=== PATIENT | female | born 1980 | race Caucasian/White ===

== ENCOUNTER → 2017-11-27 | Outpatient (CLI) | payer BC ==
[2017-11-27 13:03] VITALS: BP 136/84; PULSE 82; TEMP 98.2; BMI 38.5
[2017-11-27 13:19] LABS: HCT 41.5 % (34.0-46.0); HGB 14.1 gm/dL (11.4-16.0); MCH 30.7 pg (25.0-35.0); MCHC 33.9 g/dL (31.0-37.0); MCV 90.5 fL (80.0-100.0); Mean Platelet Volume 7.4; Platelet Count 260 k/uL (150-450); RBC 4.59 m/uL (3.80-5.40); RDW 13.1 % (11.5-15.5); WBC 12.4 k/uL (3.8-10.6)
[2017-11-27 13:41] LABS: ALT 66 U/L (9-52); AST 35 U/L (14-36); Albumin 4.2 g/dL (3.5-5.0); Alkaline Phosphatase 80 U/L (38-126); Anion Gap 10 mmol/L; Blood Urea Nitrogen 12 mg/dL (7-17); Calcium 9.6 mg/dL (8.4-10.2); Carbon Dioxide 25 mmol/L (22-30); Chloride 103 mmol/L (98-107); Cholesterol 183 mg/dL (<200); Glucose 214 mg/dL (74-99); HDL Cholesterol 27 mg/dL (40-60); Potassium 4.4 mmol/L (3.5-5.1); Sodium 138 mmol/L (137-145); Total Bilirubin 0.4 mg/dL (0.2-1.3)
[2017-11-27 13:54] LABS: Triglycerides 809 mg/dL (<150)
[2017-11-27 19:57] LABS: Iron Saturation 21.7 (12.00-45.00)
[2017-11-27 20:20] LABS: Folate, Serum 14.4 ng/mL
[2017-11-27 20:23] LABS: Hemoglobin A1C 8.4 % (4.0-6.0)
--- NOTE | 2017-11-27 21:53 | P.HPBAR ---
Bariatric H&P - History & Physicial H&P Date: 11/27/17 History & Physicial: Visit/CC: initial bariatric visit Patient initial contact: Initial weight: Initial weight in pounds: Height: 5 ft 5 in Initial B Last weight: Current weight: 105.052 kg Current weight in pounds: 231.60 Current BMI: 38.5 [place] body weight (based on NIH guidelines): 56.699 kg Excess body weight loss: The patient is a 37 year-old F who presents for Bariatric Assessment. HPI: She is looking into the sleeve gastrectomy. She has developed diabetes and hypertension. Her highest weight is present. ABDOMEN: Unremarkable PLAN: 1. Hgb A1 c to be reviewed. 2. Smoking cessation. 3. She is looking into the sleeve gastrectomy. Past Medical History Past Medical History: Diabetes Mellitus, Hyperlipidemia, Hypertension, Osteoarthritis (OA) History of Any Multi-Drug Resistant Organisms: None Reported Past Surgical History: Hysterectomy Past Anesthesia/Blood Transfusion Reactions: No Reported Reaction Past Psychological History: Anxiety Smoking Status: Current every day smoker Past Alcohol Use History: Occasional Additional Past Alcohol Use History / Comment(s): 1/2 pack per day on chantex trying to quit Past Drug Use History: None Reported Surgical - Exam Vital Signs Temp Pulse BP 98.2 F 82 136/84 11/27/17 12:53 11/27/17 12:53 11/27/17 12:53 Results - Labs 11/27/17 12:03 11/27/17 12:03 Abnormal Lab Results - Last 24 Hours (Table) 11/27/17 11/27/17 11/27/17 Range/Units 12:03 12:03 12:03 WBC 12.4 H (3.8-10.6) k/uL Glucose 214 H (74-99) mg/dL Hemoglobin A1c (4.0-6.0) % ALT 66 H (9-52) U/L Triglycerides 809 H (<150) mg/dL HDL Cholesterol 27 L (40-60) mg/dL Vitamin D 25-Hydroxy 18.0 L (30.0-100.0) ng/mL 11/27/17 Range/Units 12:03 WBC (3.8-10.6) k/uL Glucose (74-99) mg/dL Hemoglobin A1c 8.4 H (4.0-6.0) % ALT (9-52) U/L Triglycerides (<150) mg/dL HDL Cholesterol (40-60) mg/dL Vitamin D 25-Hydroxy (30.0-100.0) ng/mL Diabetes panel 11/27/17 11/27/17 Range/Units 12:03 12:03 Sodium 138 (137-145) mmol/L Potassium 4.4 (3.5-5.1) mmol/L Chloride 103 (98-107) mmol/L Carbon Dioxide 25 (22-30) mmol/L BUN 12 (7-17) mg/dL Creatinine 0.60 (0.52-1.04) mg/dL Glucose 214 H (74-99) mg/dL Hemoglobin A1c 8.4 H (4.0-6.0) % Calcium 9.6 (8.4-10.2) mg/dL AST 35 (14-36) U/L ALT 66 H (9-52) U/L Alkaline Phosphatase 80 (38-126) U/L Total Protein 7.0 (6.3-8.2) g/dL Albumin 4.2 (3.5-5.0) g/dL Triglycerides 809 H (<150) mg/dL HDL Cholesterol 27 L (40-60) mg/dL Thyroid panel 11/27/17 Range/Units 12:03 TSH 1.410 (0.465-4.680) mIU/L Calcium panel 11/27/17 Range/Units 12:03 Calcium 9.6 (8.4-10.2) mg/dL Albumin 4.2 (3.5-5.0) g/dL Pituitary panel 11/27/17 Range/Units 12:03 Sodium 138 (137-145) mmol/L Potassium 4.4 (3.5-5.1) mmol/L Chloride 103 (98-107) mmol/L Carbon Dioxide 25 (22-30) mmol/L BUN 12 (7-17) mg/dL Creatinine 0.60 (0.52-1.04) mg/dL Glucose 214 H (74-99) mg/dL Calcium 9.6 (8.4-10.2) mg/dL TSH 1.410 (0.465-4.680) mIU/L Adrenal panel 11/27/17 Range/Units 12:03 Sodium 138 (137-145) mmol/L Potassium 4.4 (3.5-5.1) mmol/L Chloride 103 (98-107) mmol/L Carbon Dioxide 25 (22-30) mmol/L BUN 12 (7-17) mg/dL Creatinine 0.60 (0.52-1.04) mg/dL Glucose 214 H (74-99) mg/dL Calcium 9.6 (8.4-10.2) mg/dL Total Bilirubin 0.4 (0.2-1.3) mg/dL AST 35 (14-36) U/L ALT 66 H (9-52) U/L Alkaline Phosphatase 80 (38-126) U/L Total Protein 7.0 (6.3-8.2) g/dL Albumin 4.2 (3.5-5.0) g/dL Bariatric Checklist Checklist: Plan: Checklist: EGD: 1. Hiatal hernia: 2. H. Pylori: HgbA1c: Vitamin D: Smoking: Current every day smoker Primary care physician referral: ángel gatica Psychiatry clearance: Cardiology clearance: Sleep study: Diet journal: VTE risk score: VTE risk level: Rehab needs at discharge:
[2017-11-29 14:16] LABS: Anabasine Urine 6.8 ng/mL (<2.0)
== END ==
LOC: BARWHC3 10:07
PROVIDERS: ATTEND Surgery Plastic and Reconstructive Surgery
DX: E11.9 Type 2 diabetes mellitus without complications (principal); I10 Essential (primary) hypertension; F17.200 Nicotine dependence, unspecified, uncomplicated; E66.01 Morbid (severe) obesity due to excess calories; E88.81 Metabolic syndrome and other insulin resistance; D50.9 Iron deficiency anemia, unspecified; E44.0 Moderate protein-calorie malnutrition; E55.9 Vitamin D deficiency, unspecified; G47.30 Sleep apnea, unspecified; Z68.38 Body mass index [BMI] 38.0-38.9, adult
CPT/HCPCS: 80053; 80061; 80323; 82306; 82607; 82728; 82746; 83036; 83540; 83550; 84425; 84443; 85027; 93005; 99201

== ENCOUNTER 2018-01-26 06:58 | Day surgery (SDC) | payer BC ==
--- NOTE | 2018-01-26 06:38 | P.GSHP ---
History of Present Illness H&P Date: 01/26/18 CHIEF COMPLAINT: GERD HISTORY OF PRESENT ILLNESS: The patient is a 37-year-old female who presents reports gastroesophageal reflux disease. Upper endoscopy was offered for further evaluation and management. PAST MEDICAL HISTORY: Please see list. PAST SURGICAL HISTORY: Please see list. MEDICATIONS: Please see list. ALLERGIES: Please see list. SOCIAL HISTORY: No illicit drug use FAMILY HISTORY: No reports of Crohn disease or ulcerative colitis. REVIEW OF ORGAN SYSTEMS: CONSTITUTIONAL: No reports of fevers or chills. GI: Denies any blood in stools or constipation. PHYSICAL EXAM: VITAL SIGNS: Stable GENERAL: Well-developed and pleasant in no acute distress. HEENT: No scleral icterus. Extraocular movements grossly intact. Moist buccal mucosa. NECK: Supple without lymphadenopathy. CHEST: Unlabored respirations. Equal bilateral excursions. CARDIOVASCULAR: Regular rate and rhythm. Distal 2+ pulses. ABDOMEN: Soft, nondistended. MUSCULOSKELETAL: No clubbing, cyanosis, or edema. ASSESSMENT: 1. Gastroesophageal reflux disease PLAN: 1. Recommend proceeding with an upper endoscopy Past Medical History Past Medical History: Diabetes Mellitus, Hyperlipidemia, Hypertension, Osteoarthritis (OA) History of Any Multi-Drug Resistant Organisms: None Reported Past Surgical History: Hysterectomy Past Anesthesia/Blood Transfusion Reactions: No Reported Reaction Past Psychological History: Anxiety Smoking Status: Current every day smoker Past Alcohol Use History: Occasional Additional Past Alcohol Use History / Comment(s): 1/2 pack per day on chantex trying to quit Past Drug Use History: None Reported Medications and Allergies Home Medications Medication Instructions Recorded Confirmed Type ALPRAZolam [Xanax] 0.25 mg PO TID 12/03/17 01/23/18 History Citalopram Hydrobromide 20 mg PO DAILY 12/03/17 01/23/18 History [Citalopram HBr] Ezetimibe [Zetia] 10 mg PO DAILY 12/03/17 01/23/18 History Fenofibrate Nanocrystallized 1 tab PO DAILY 12/03/17 01/23/18 History [Tricor] Lisinopril-Hctz 20-25 mg 1 tab PO DAILY 12/03/17 01/23/18 History [Zestoretic 20-25] Multivitamins, Thera [Multivitamin 1 tab PO DAILY 12/03/17 01/23/18 History (formulary)] [place]-3 Fatty Acids/Fish Oil [Fish 1,000 mg PO BID 12/03/17 01/23/18 History Oil 1,000 mg Softgel] glyBURIDE [Diabeta] 2.5 mg PO DAILY 12/03/17 01/23/18 History metFORMIN HCL [Glucophage] 500 mg PO BID 12/03/17 01/23/18 History Varenicline [Chantix Continuing 1 mg PO BID 01/23/18 01/23/18 History Pack] Allergies Allergy/AdvReac Type Severity Reaction Status Date / Time No Known Allergies Allergy Verified 01/23/18 08:17
[2018-01-26 07:20] VITALS: RESP 16; TEMP 97.9
[2018-01-26] MEDS ORDERED: LACTATED RINGERS 1,000 ML IV ONE (07:31)
[2018-01-26 07:32] LABS: Glucose,Whole Blood 306 mg/dL (75-99)
[2018-01-26] MEDS ORDERED: LACTATED RINGERS 1,000 ML IV SCH (07:35)
[2018-01-26] MEDS ORDERED: LIDOCAINE 1% 20 ML VIAL (10MG/ML) FOR IV START INTRADERMA PRN (07:35)
[2018-01-26] MEDS ORDERED: INSULIN ASPART 100 UNIT/ML 1 ML 10 ML VIAL SQ ONE (07:36)
[2018-01-26] MEDS ORDERED: LIDOCAINE 1% INJ 10MG/ML (20 ML MDV) ONE (07:41)
[2018-01-26] MEDS ORDERED: PROPOFOL 10 MG/ML 20 ML VIAL IV ONE (07:41)
--- NOTE | 2018-01-26 07:54 | P.PCN ---
Date of Procedure: 01/26/18 Description of Procedure: PREOPERATIVE DIAGNOSIS: Gastroesophageal reflux disease. Morbid obesity. POSTOPERATIVE DIAGNOSIS: Morbid obesity. Gastritis. Erosive esophagitis Gastroesophageal reflux disease. Diaphragmatic hiatal hernia OPERATION: Esophagogastroduodenoscopy with biopsies along antrum. SURGEON: Helen Meyers MD ANESTHESIA: MAC. INDICATIONS: The patient is a 37-year-old female who presents with a history of reflux disease. Benefits and risks of the procedure were described. Informed consent was obtained. DESCRIPTION: The patient was brought into the endoscopy suite and laid in the left lateral decubitus position. An Olympus gastroscope was passed along the posterior oropharynx down to the distal esophagus where the squamocolumnar junction was encountered at 36 cm from the incisors. The stomach was entered and no bile reflux was found. Additional findings are listed below. Biopsies with cold forceps were obtained of the antrum. The first through third portion of the duodenum was examined and unremarkable. Retroflexion of the scope confirmed Hill grade 3 lower esophageal valve. The squamocolumnar junction demonstrated LA grade C erosive esophagitis. The stomach was desufflated. The patient tolerated the procedure well. FINDINGS: Squamocolumnar junction 36 cm from the incisors. Diaphragmatic hiatus at 40 cm. Hiatal hernia, 4 cm Hill grade 3 lower esophageal valve. LA grade C erosive esophagitis. Mild duodenitis. Early chronic gastritis RECOMMENDATIONS: Upper endoscopy as needed. Plan - Discharge Summary New Discharge Prescriptions: New Omeprazole 40 mg PO DAILY #30 capsule. No Action Lisinopril-Hctz 20-25 mg [Zestoretic 20-25] 1 tab PO DAILY metFORMIN HCL [Glucophage] 500 mg PO BID Fenofibrate Nanocrystallized [Tricor] 1 tab PO DAILY Citalopram Hydrobromide [Citalopram HBr] 20 mg PO DAILY glyBURIDE [Diabeta] 2.5 mg PO DAILY ALPRAZolam [Xanax] 0.25 mg PO TID Ezetimibe [Zetia] 10 mg PO DAILY [place]-3 Fatty Acids/Fish Oil [Fish Oil 1,000 mg Softgel] 1,000 mg PO BID Multivitamins, Thera [Multivitamin (formulary)] 1 tab PO DAILY Varenicline [Chantix Continuing Pack] 1 mg PO BID Discharge Medication List ALPRAZolam [Xanax] 0.25 mg PO TID 12/03/17 [History] Citalopram Hydrobromide [Citalopram HBr] 20 mg PO DAILY 12/03/17 [History] Ezetimibe [Zetia] 10 mg PO DAILY 12/03/17 [History] Fenofibrate Nanocrystallized [Tricor] 1 tab PO DAILY 12/03/17 [History] Lisinopril-Hctz 20-25 mg [Zestoretic 20-25] 1 tab PO DAILY 12/03/17 [History] Multivitamins, Thera [Multivitamin (formulary)] 1 tab PO DAILY 12/03/17 [History ] [place]-3 Fatty Acids/Fish Oil [Fish Oil 1,000 mg Softgel] 1,000 mg PO BID [History] glyBURIDE [Diabeta] 2.5 mg PO DAILY 12/03/17 [History] metFORMIN HCL [Glucophage] 500 mg PO BID 12/03/17 [History] Varenicline [Chantix Continuing Pack] 1 mg PO BID 01/23/18 [History] Omeprazole 40 mg PO DAILY #30 capsule. 01/26/18 [Rx] Follow up Appointment(s)/Referral(s): Helen Meyers MD [STAFF PHYSICIAN] - 02/18/18 Patient Instructions/Handouts: *Surgery [facility] - (Anesthesia) Endoscopy Discharge Instructions, Esophagitis (DC), Diet for Stomach Ulcers and Gastritis (GEN), Hiatal Hernia (DC) Discharge Disposition: HOME SELF-CARE
[2018-01-26 08:19] VITALS: BP 116/77; PULSE 76
== END 2018-01-26 08:49 | disposition home or self-care (01) ==
LOC: ORWHC2ENDO 06:58
PROVIDERS: ATTEND Surgery Plastic and Reconstructive Surgery
DX: K29.50 Unspecified chronic gastritis without bleeding (principal); K22.10 Ulcer of esophagus without bleeding; K21.0 Gastro-esophageal reflux disease with esophagitis; K29.80 Duodenitis without bleeding; K44.9 Diaphragmatic hernia without obstruction or gangrene; K21.9 Gastro-esophageal reflux disease without esophagitis; E66.01 Morbid (severe) obesity due to excess calories; E11.9 Type 2 diabetes mellitus without complications; E78.5 Hyperlipidemia, unspecified; I10 Essential (primary) hypertension; M19.90 Unspecified osteoarthritis, unspecified site; F41.9 Anxiety disorder, unspecified; F17.210 Nicotine dependence, cigarettes, uncomplicated; F32.9 Major depressive disorder, single episode, unspecified; Z79.899 Other long term (current) drug therapy; Z79.84 Long term (current) use of oral hypoglycemic drugs; Z68.36 Body mass index [BMI] 36.0-36.9, adult
CPT/HCPCS: 88305; 43239; J2001; J2704

== ENCOUNTER → 2018-02-25 | Outpatient (CLI) | payer BC ==
[2018-02-25 14:47] VITALS: BP 133/86; PULSE 78; RESP 20; TEMP 98; BMI 38.3
--- NOTE | 2018-02-25 15:20 | P.PN ---
Subjective Progress Note Date: 02/25/18 DATE OF SERVICE: 02/25/2018 CHIEF COMPLAINT: Bariatric evaluation. HISTORY OF PRESENT ILLNESS: John House is a 37-year-old female who comes in with morbid obesity. She has diabetes type 2 including hypertensive heart disease. She is still smoking. She comes in looking at her options. Her urine nicotine test is pending. Her highest weight is 231 pounds. At height of 5 feet 5 inches, her ideal body weight is 149 pounds. She comes in 230 pounds from 231 pounds, 3 months ago. She has lost 1 pound in 3 months. Her body mass index highest was 38. but 38.4 today. She is 81 pounds overweight. PAST MEDICAL HISTORY: 1. Morbid obesity due to excess calories 2. Body mass index of 38.5 3. Osteoarthritis of the knees. 4. Osteoarthritis of the lower back. 5. Hypertensive heart disease. 6. Hyperlipidemia 7. Anxiety disorder 8. Depressive disorder 9. Diabetes type 2. PAST SURGICAL HISTORY: 1. Hysterectomy HOME MEDICATIONS: ALLERGIES: Home Medications Medication Instructions Recorded Confirmed Type ALPRAZolam [Xanax] 0.25 mg PO TID 12/03/17 12/03/17 History Citalopram Hydrobromide 20 mg PO DAILY 12/03/17 12/03/17 History [Citalopram HBr] Ezetimibe [Zetia] 10 mg PO DAILY 12/03/17 12/03/17 History Fenofibrate Nanocrystallized 1 tab PO DAILY 12/03/17 12/03/17 History [Tricor] Lisinopril-Hctz 20-25 mg 1 tab PO DAILY 12/03/17 12/03/17 History [Zestoretic 20-25] Multivitamins, Thera [Multivitamin 1 tab PO DAILY 12/03/17 12/03/17 History (formulary)] [place]-3 Fatty Acids/Fish Oil [Fish 1,000 mg PO BID 12/03/17 12/03/17 History Oil 1,000 mg Softgel] glyBURIDE [Diabeta] 2.5 mg PO DAILY 12/03/17 12/03/17 History metFORMIN HCL [Glucophage] 500 mg PO BID 12/03/17 12/03/17 History Allergies Allergy/AdvReac Type Severity Reaction Status Date / Time No Known Allergies Allergy Verified 11/27/17 12:56 SOCIAL HISTORY: Active tobacco use. FAMILY HISTORY: No family history of ulcerative colitis disease or Crohn's disease. Family history of morbid obesity. No lupus in the family. No reports of stomach or esophageal cancer. REVIEW OF ORGAN SYSTEMS: CONSTITUTIONAL: At height of 5 feet 5 inches, her ideal body weight is 149 pounds. She comes in 231 pounds. Her body mass index highest was 38.5. HEENT: Denies any active troubles with vision or hearing. No troubles with swallowing. ENDOCRINE: Has diabetes. No hypothyroidism. CARDIOVASCULAR: No reports of palpitations or heart attacks or chest pain. RESPIRATORY: Has daytime somnolence. Has asthma. GI: Denies any bright red blood per rectum. No diarrhea. Has constipation. MUSCULOSKELETAL: Has lower back pain and joint pain. Has osteoarthritis of the knees. NEURO: No headaches. No seizure disorders. PSYCH: Has depression. No suicidal ideation. RHEUMATOLOGIC: No lupus. No rheumatoid arthritis. HEMATOLOGIC: Denies any abnormal bleeding or bruising. No personal history of DVTs. SKIN: No rash. No skin cancer. PHYSICAL EXAM: VITAL SIGNS: Height 5 foot 5 inches, weight 230 pounds. BMI 38.4 Vital Signs Temp 98.0 F 02/25/18 14:45 Pulse 78 02/25/18 14:45 Resp 20 02/25/18 14:45 BP 133/86 02/25/18 14:45 Pulse Ox 95 02/25/18 14:45 GENERAL: Well-developed in no acute distress. HEENT: No scleral icterus. Extraocular movements grossly intact. Hears conversational speech. No nasal drainage. NECK: Supple without lymphadenopathy. CHEST: Nonlabored respirations with equal bilateral excursions. CARDIOVASCULAR: Regular rate and regular rhythm. Distal 2+ pulses. ABDOMEN: Obese, soft, nontender, nondistended. MUSCULOSKELETAL: No clubbing, cyanosis. NEURO: No focal or lateralizing signs. Cranial nerves 2 through 12 grossly within normal limits. PSYCH: Appropriate affect. Alert and oriented to person, place and time. SKIN: Good skin turgor. Well perfused. EGD FINDINGS: Squamocolumnar junction 36 cm from the incisors. Diaphragmatic hiatus at 40 cm. Hiatal hernia, 4 cm Hill grade 3 lower esophageal valve. LA grade C erosive esophagitis. Mild duodenitis. Early chronic gastritis Final Pathologic Diagnosis GASTRIC ANTRUM, BIOPSY: Chronic gastritis. Helicobacter organisms are not identified on routine H+E stained sections. ASSESSMENT: 1. Morbid obesity due to excess calories 2. Body mass index of 38.4 3. Osteoarthritis of the knees. 4. Osteoarthritis of the lower back. 5. Hypertensive heart disease. 6. Hyperlipidemia 7. Anxiety disorder 8. Depressive disorder 9. Diabetes type 2, new diagnosis PLAN: 1. She is looking into the sleeve. She has a hiatal hernia and recommend repair prior to her sleeve gastrectomy. Nicotine use is also contraindicated for a hiatal hernia repair. 2. She is barely off her nicotine use. She will need urine nicotine test 3. [facility] calculator was reviewed for all procedures 4. Labs reviewed demonstrates HgB A1C is over 8. She will need tight glycemic control. 5. She asked about alcohol use after surgery. Alcohol abstinence advised. 6. Gastric bypass was also described for her history of gastric bypass for her gastroesophageal reflux disease. 7. Her liver enzymes are high and recommend check for ultrasound gallbladder for gallstones 8. Also recommend evaluation with the bariatric correctional sergeant 9. She is intermediate to high risk of complications due to her current tobacco use, diabetes uncontrolled, concurrent hiatal hernia, and alcohol use. 10. Surgical intervention on hold pending improved glycemic control and nicotine abstinence. Objective - Vital Signs Vital signs: Vital Signs Temp 98.0 F 02/25/18 14:45 Pulse 78 02/25/18 14:45 Resp 20 02/25/18 14:45 BP 133/86 02/25/18 14:45 Pulse Ox 95 02/25/18 14:45 Intake & Output 02/24/18 02/25/18 02/25/18 18:59 06:59 18:59 Weight 104.553 kg
== END | disposition home or self-care (01) ==
LOC: BARWHC3 13:24
PROVIDERS: ATTEND Surgery Plastic and Reconstructive Surgery
DX: Z48.815 Encounter for surgical aftercare following surgery on the digestive system (principal); E66.01 Morbid (severe) obesity due to excess calories; M17.0 Bilateral primary osteoarthritis of knee; M47.896 Other spondylosis, lumbar region; I11.9 Hypertensive heart disease without heart failure; E78.5 Hyperlipidemia, unspecified; F41.9 Anxiety disorder, unspecified; F32.9 Major depressive disorder, single episode, unspecified; E11.9 Type 2 diabetes mellitus without complications; Z68.38 Body mass index [BMI] 38.0-38.9, adult; Z79.899 Other long term (current) drug therapy; Z79.84 Long term (current) use of oral hypoglycemic drugs; Z98.84 Bariatric surgery status
CPT/HCPCS: 99211

== ENCOUNTER → 2018-03-31 | Outpatient (CLI) | payer BC ==
--- NOTE | 2018-03-31 10:27 | US ---
EXAMINATION TYPE: US gallbladder DATE OF EXAM: 03/31/2018 COMPARISON: NONE CLINICAL HISTORY: 37-year-old female R10.11 RUQ Pain abdominal Pain. Elevated LFT's, Pre-Op Gastric B ypass TECHNIQUE: Multiple sonographic images of the right upper quadrant are obtained. FINDINGS: EXAM MEASUREMENTS: Liver Length: 25.1 cm Gallbladder Wall: 0.2 cm CBD: 0.5 cm Right Kidney: 11.9 x 4.9 x 6.1 cm Firearms Specialist notes:*Large pt body habitus* Pancreas: Obscured by bowel gas Liver: Enlarged, difficult to penetrate, heterogeneous. The degree of sound beam attenuation limits assessment for focal lesion. Gallbladder: No abnormal distention, wall thickening, pericholecystic fluid, or shadowing calculi. Evidence for sonographic Cruz's sign: No CBD: wnl Right Kidney: No evidence of hydro, difficult to visualize due to attenuation from the liver. IMPRESSION: Marked hepatomegaly (25.1 cm) with marked attenuation of the liver suggesting severe hepatic steatosi s. Correlate with LFTs, lipid profile, and patient risk factors.
== END | disposition home or self-care (01) ==
LOC: RADUSWWP 07:31
PROVIDERS: ATTEND Surgery Plastic and Reconstructive Surgery
DX: R16.0 Hepatomegaly, not elsewhere classified (principal); R10.11 Right upper quadrant pain
CPT/HCPCS: 76705

== ENCOUNTER → 2018-04-06 | Outpatient (CLI) | payer BC ==
[2018-04-06 13:04] VITALS: BMI 38.2
== END ==
LOC: BARWHC3 08:42
PROVIDERS: ATTEND Surgery Plastic and Reconstructive Surgery
DX: E66.01 Morbid (severe) obesity due to excess calories (principal)
CPT/HCPCS: 97804

== ENCOUNTER → 2018-05-06 | Outpatient (CLI) | payer BC ==
[2018-05-06 14:07] VITALS: BP 116/83; PULSE 89; RESP 16; TEMP 97.9; BMI 38.4
--- NOTE | 2018-05-06 14:54 | P.PN ---
Subjective Progress Note Date: 05/06/18 DATE OF SERVICE: 05/06/2018 CHIEF COMPLAINT: Morbid obesity HISTORY OF PRESENT ILLNESS: John House is a 37-year-old female who comes in with morbid obesity. She has diabetes type 2 including hypertensive heart disease. Her highest weight is 231 pounds. No reports of nausea or vomiting. Her blood sugars were elevated. At height of 5 feet 5 inches, her ideal body weight is 149 pounds. She comes in 231 pounds from 231 pounds, 2 months ago. Her weight is unchanged. Her body mass index highest was 38.5. She is 82 pounds overweight. PAST MEDICAL HISTORY: 1. Morbid obesity due to excess calories 2. Body mass index of 38.5 3. Osteoarthritis of the knees. 4. Osteoarthritis of the lower back. 5. Hypertensive heart disease. 6. Hyperlipidemia 7. Anxiety disorder 8. Depressive disorder 9. Diabetes type 2. PAST SURGICAL HISTORY: 1. Hysterectomy HOME MEDICATIONS: ALLERGIES: Home Medications Medication Instructions Recorded Confirmed Type ALPRAZolam [Xanax] 0.25 mg PO TID 12/03/17 12/03/17 History Citalopram Hydrobromide 20 mg PO DAILY 12/03/17 12/03/17 History [Citalopram HBr] Ezetimibe [Zetia] 10 mg PO DAILY 12/03/17 12/03/17 History Fenofibrate Nanocrystallized 1 tab PO DAILY 12/03/17 12/03/17 History [Tricor] Lisinopril-Hctz 20-25 mg 1 tab PO DAILY 12/03/17 12/03/17 History [Zestoretic 20-25] Multivitamins, Thera [Multivitamin 1 tab PO DAILY 12/03/17 12/03/17 History (formulary)] [place]-3 Fatty Acids/Fish Oil [Fish 1,000 mg PO BID 12/03/17 12/03/17 History Oil 1,000 mg Softgel] glyBURIDE [Diabeta] 2.5 mg PO DAILY 12/03/17 12/03/17 History metFORMIN HCL [Glucophage] 500 mg PO BID 12/03/17 12/03/17 History Allergies Allergy/AdvReac Type Severity Reaction Status Date / Time No Known Allergies Allergy Verified 11/27/17 12:56 SOCIAL HISTORY: Active tobacco use. FAMILY HISTORY: No family history of ulcerative colitis disease or Crohn's disease. Family history of morbid obesity. No lupus in the family. No reports of stomach or esophageal cancer. REVIEW OF ORGAN SYSTEMS: CONSTITUTIONAL: At height of 5 feet 5 inches, her ideal body weight is 149 pounds. She comes in 231 pounds. Her body mass index highest was 38.5. HEENT: Denies any active troubles with vision or hearing. No troubles with swallowing. ENDOCRINE: Has diabetes. No hypothyroidism. CARDIOVASCULAR: No reports of palpitations or heart attacks or chest pain. RESPIRATORY: Has daytime somnolence. Has asthma. GI: Denies any bright red blood per rectum. No diarrhea. Has constipation. MUSCULOSKELETAL: Has lower back pain and joint pain. Has osteoarthritis of the knees. NEURO: No headaches. No seizure disorders. PSYCH: Has depression. No suicidal ideation. RHEUMATOLOGIC: No lupus. No rheumatoid arthritis. HEMATOLOGIC: Denies any abnormal bleeding or bruising. No personal history of DVTs. SKIN: No rash. No skin cancer. PHYSICAL EXAM: VITAL SIGNS: Height 5 foot 5 inches, weight 231 pounds. BMI 38.5 Vital Signs Temp 97.9 F 05/06/18 14:04 Pulse 89 05/06/18 14:04 Resp 16 05/06/18 14:04 BP 116/83 05/06/18 14:04 Pulse Ox GENERAL: Well-developed in no acute distress. HEENT: No scleral icterus. Extraocular movements grossly intact. Hears conversational speech. No nasal drainage. NECK: Supple without lymphadenopathy. CHEST: Nonlabored respirations with equal bilateral excursions. CARDIOVASCULAR: Regular rate and regular rhythm. Distal 2+ pulses. ABDOMEN: Obese, soft, nontender, nondistended. MUSCULOSKELETAL: No clubbing, cyanosis. NEURO: No focal or lateralizing signs. Cranial nerves 2 through 12 grossly within normal limits. PSYCH: Appropriate affect. Alert and oriented to person, place and time. SKIN: Good skin turgor. Well perfused. ASSESSMENT: 1. Morbid obesity due to excess calories 2. Body mass index of 38.4, initial 3. Osteoarthritis of the knees. 4. Osteoarthritis of the lower back. 5. Hypertensive heart disease. 6. Hyperlipidemia 7. Anxiety disorder 8. Depressive disorder 9. Diabetes type 2 PLAN: 1. Bariatric options between a sleeve, band and a [place]ante-en-Y gastric bypass were reviewed in detail. The patient elected for gastric bypass. Robotic assisted approach described. 2. The [place] [facility] Data was also reviewed with benefits and risks as described. 3. An 8 page second-generation bariatric consent form was reviewed in detail including potential of bleeding, infection, leaks, adequate weight loss, nutritional deficiencies which the patient demonstrated understanding of the risks. 4. A 2 week high-protein low caloric 800 kcal diet described to address hepatomegaly. 5. Preoperative labs including complete metabolic panel and CBC with type and screen recommended. 6. DVT prophylaxis per [place] [facility]. 7. Antibiotic prophylaxis. 8. Inpatient hospitalization anticipated for more than 2 nights. 9. All questions and concerns were addressed with the patient. 10. Will need urine nicotine re-check 11. She is elevated risk for complications. Objective - Vital Signs Vital signs: Vital Signs Temp 97.9 F 05/06/18 14:04 Pulse 89 05/06/18 14:04 Resp 16 05/06/18 14:04 BP 116/83 05/06/18 14:04 Pulse Ox Intake & Output 05/05/18 05/06/18 05/06/18 18:59 06:59 18:59 Weight 104.78 kg
== END | disposition home or self-care (01) ==
LOC: BARWHC3 13:34
PROVIDERS: ATTEND Surgery Plastic and Reconstructive Surgery
DX: E66.01 Morbid (severe) obesity due to excess calories (principal); M17.0 Bilateral primary osteoarthritis of knee; M47.816 Spondylosis without myelopathy or radiculopathy, lumbar region; I11.9 Hypertensive heart disease without heart failure; E78.5 Hyperlipidemia, unspecified; F41.9 Anxiety disorder, unspecified; F32.9 Major depressive disorder, single episode, unspecified; E11.9 Type 2 diabetes mellitus without complications; Z68.38 Body mass index [BMI] 38.0-38.9, adult; Z72.0 Tobacco use; Z79.84 Long term (current) use of oral hypoglycemic drugs; Z79.899 Other long term (current) drug therapy
CPT/HCPCS: 99211

== ENCOUNTER → 2018-06-06 | Outpatient (CLI) | payer BC ==
[2018-06-06 10:43] LABS: Basophils # (A) 0.1 k/uL (0-0.2); Basophils % (A) 1 %; Eosinophils # (A) 0.1 k/uL (0-0.7); Eosinophils % (A) 2 %; HCT 43.4 % (34.0-46.0); HGB 14.5 gm/dL (11.4-16.0); Lymphocytes # (A) 2.4 k/uL (1.0-4.8); Lymphocytes % (A) 30 %; MCH 30.9 pg (25.0-35.0); MCHC 33.4 g/dL (31.0-37.0); MCV 92.4 fL (80.0-100.0); Mean Platelet Volume 7.4; Monocytes # (A) 0.4 k/uL (0-1.0); Monocytes % (A) 5 %; Neutrophils # (A) 4.7 k/uL (1.3-7.7); Neutrophils % (A) 61 %; Platelet Count 249 k/uL (150-450); RDW 13.4 % (11.5-15.5); WBC 7.7 k/uL (3.8-10.6)
[2018-06-06 11:05] LABS: ALT 101 U/L (9-52); AST 74 U/L (14-36); Albumin 4.5 g/dL (3.5-5.0); Alkaline Phosphatase 81 U/L (38-126); Anion Gap 10 mmol/L; Blood Urea Nitrogen 13 mg/dL (7-17); Calcium 10.1 mg/dL (8.4-10.2); Carbon Dioxide 26 mmol/L (22-30); Chloride 100 mmol/L (98-107); Glucose 200 mg/dL (74-99); Potassium 4.1 mmol/L (3.5-5.1); Sodium 136 mmol/L (137-145); Total Bilirubin 0.6 mg/dL (0.2-1.3); Total Protein 7.1 g/dL (6.3-8.2)
== END | disposition home or self-care (01) ==
LOC: LABPAT 10:11
PROVIDERS: ATTEND Surgery Plastic and Reconstructive Surgery
DX: Z01.812 Encounter for preprocedural laboratory examination (principal)
CPT/HCPCS: 36415; 80053; 85025

== ENCOUNTER → 2018-06-15 | Outpatient (CLI) | payer BC ==
--- NOTE | 2018-06-15 15:24 | CT ---
EXAMINATION TYPE: CT abdomen pelvis w con DATE OF EXAM: 06/15/2018 COMPARISON: Ultrasound gallbladder 03/31/2018 HISTORY: Elevated lliver enzymes CT DLP: 1551 mGycm Automated exposure control for dose reduction was used. CONTRAST: CT scan of the abdomen pelvis is performed with IV Contrast, patient injected with 100 mL of Isovue 3 00. FINDINGS- LUNG BASES-subsegmental changes involving both lung bases most atelectasis. LIVER/GB-liver is diffusely reduced in attenuation of fatty. PANCREAS- No gross abnormality is seen. SPLEEN- No gross abnormality is seen. ADRENALS- No gross abnormality is seen. KIDNEYS/BLADDER- no hydronephrosis nephrolithiasis or renal mass. BOWEL-bowel gas pattern nonspecific.. Normal appendix. LYMPH NODES- No greater than 1cm abdominal or pelvic lymph nodes areappreciated. OSSEOUS STRUCTURES- No significant abnormality is seen. Vertebral body hemangioma noted. OTHER- there are bilateral ovarian lesions the largest on the left measuring 3 cm likely related to a cyst. Pelvic ultrasound No free fluid. IMPRESSION- 1. Hepatomegaly with diffuse low-attenuation throughout the liver correlate for hepatic steatosis.
== END | disposition home or self-care (01) ==
LOC: RADCTMAIN 14:08
PROVIDERS: ATTEND Surgery Plastic and Reconstructive Surgery
DX: R16.0 Hepatomegaly, not elsewhere classified (principal)
CPT/HCPCS: 74177; 36415; Q9967

== ENCOUNTER → 2018-06-15 | Outpatient (CLI) | payer BC ==
[2018-06-15 13:00] VITALS: BP 130/69; PULSE 69; TEMP 98.6; BMI 36.1
--- NOTE | 2018-06-15 13:02 | P.PN ---
Subjective Progress Note Date: 06/15/18 DATE OF SERVICE: 06/15/2018 CHIEF COMPLAINT: Morbid obesity HISTORY OF PRESENT ILLNESS: John House is a 38-year-old female who presents with uncontrolled diabetes type 2 including hypertensive heart disease, hyperlipidemia. Her procedure was scheduled today however canceled secondary to moderate elevation of her LFTs as well as worsening poorly controlled diabetes. Repeat hemoglobin A1c at her local provider came back over 10.0 from 8.4 six months ago, November 2017. She is also pending repeat urine nicotine test. Her mother is at bedside who also confirms family history of liver disease. She has not seen an motorcycle repairer in over 3+ years. She also completed diabetic education class now with worsening blood sugar glucose. Blood sugars average over 200 to 250s, even 300s. She has been following her 2 week low-carb high- protein diet where she reports her blood sugars has been under 100 and at one point less than 60. She comes in with moderate weight loss of 14 pounds in 1 month. Separately, she reports intermittent abdominal discomfort. She has past history of hypertriglyceridemia with triglycerides over 800 which puts her at risk for pancreatitis. Her highest weight is 231 pounds. At height of 5 feet 5 inches, her ideal body weight is 149 pounds. She comes in 217 pounds from 231 pounds, 1 month ago. She has lost 14 pound in 1 month. Her body mass index highest was 38.5 to 36.2. PAST MEDICAL HISTORY: 1. Morbid obesity due to excess calories 2. Body mass index of 38.5 3. Osteoarthritis of the knees. 4. Osteoarthritis of the lower back. 5. Hypertensive heart disease. 6. Hyperlipidemia 7. Anxiety disorder 8. Depressive disorder 9. Diabetes type 2, poorly controlled. PAST SURGICAL HISTORY: 1. Hysterectomy HOME MEDICATIONS: ALLERGIES: Home Medications Medication Instructions Recorded Confirmed Type ALPRAZolam [Xanax] 0.25 mg PO TID 12/03/17 12/03/17 History Citalopram Hydrobromide 20 mg PO DAILY 12/03/17 12/03/17 History [Citalopram HBr] Ezetimibe [Zetia] 10 mg PO DAILY 12/03/17 12/03/17 History Fenofibrate Nanocrystallized 1 tab PO DAILY 12/03/17 12/03/17 History [Tricor] Lisinopril-Hctz 20-25 mg 1 tab PO DAILY 12/03/17 12/03/17 History [Zestoretic 20-25] Multivitamins, Thera [Multivitamin 1 tab PO DAILY 12/03/17 12/03/17 History (formulary)] [place]-3 Fatty Acids/Fish Oil [Fish 1,000 mg PO BID 12/03/17 12/03/17 History Oil 1,000 mg Softgel] glyBURIDE [Diabeta] 2.5 mg PO DAILY 12/03/17 12/03/17 History metFORMIN HCL [Glucophage] 500 mg PO BID 12/03/17 12/03/17 History Allergies Allergy/AdvReac Type Severity Reaction Status Date / Time No Known Allergies Allergy Verified 11/27/17 12:56 SOCIAL HISTORY: Recent tobacco use. FAMILY HISTORY: No family history of ulcerative colitis disease or Crohn's disease. Family history of morbid obesity. No lupus in the family. No reports of stomach or esophageal cancer. REVIEW OF ORGAN SYSTEMS: CONSTITUTIONAL: At height of 5 feet 5 inches, her ideal body weight is 149 pounds. She comes in 217 pounds. Her body mass index highest was 38.5. HEENT: Denies any active troubles with vision or hearing. No troubles with swallowing. ENDOCRINE: Has diabetes. No hypothyroidism. CARDIOVASCULAR: No reports of palpitations or heart attacks or chest pain. RESPIRATORY: Has daytime somnolence. Has asthma. GI: Denies any bright red blood per rectum. No diarrhea. Has constipation. MUSCULOSKELETAL: Has lower back pain and joint pain. Has osteoarthritis of the knees. NEURO: No headaches. No seizure disorders. PSYCH: Has depression. No suicidal ideation. RHEUMATOLOGIC: No lupus. No rheumatoid arthritis. HEMATOLOGIC: Denies any abnormal bleeding or bruising. No personal history of DVTs. SKIN: No rash. No skin cancer. PHYSICAL EXAM: VITAL SIGNS: Height 5 foot 5 inches, weight 217 pounds. BMI 36.2 GENERAL: Well-developed in no acute distress. HEENT: No scleral icterus. Extraocular movements grossly intact. Hears conversational speech. No nasal drainage. NECK: Supple without lymphadenopathy. CHEST: Nonlabored respirations with equal bilateral excursions. CARDIOVASCULAR: Regular rate and regular rhythm. Distal 2+ pulses. ABDOMEN: Obese, soft, nondistended. MUSCULOSKELETAL: No clubbing, cyanosis. NEURO: No focal or lateralizing signs. Cranial nerves 2 through 12 grossly within normal limits. PSYCH: Appropriate affect. Alert and oriented to person, place and time. SKIN: Good skin turgor. Well perfused. LABS: LFTs moderately elevated 70s AST, ALT over 100s. Vitamin D low. Hemoglobin A1c over 8.4 now over 10.0 STUDIES: Ultrasound gallbladder personally reviewed demonstrating mild shadowing within the gallbladder. Report is negative for large stones with possible liver disease. ASSESSMENT: 1. Morbid obesity due to excess calories 2. Body mass index of 38.4 to 36.2 3. Osteoarthritis of the knees. 4. Osteoarthritis of the lower back. 5. Hypertensive heart disease. 6. Hyperlipidemia 7. Anxiety disorder 8. Depressive disorder 9. Diabetes type 2, uncontrolled, worsening 10. Vitamin D deficiency 11. Hypertriglyceridemia with risk for pancreatitis 12. Elevated liver function tests 13. Family history of liver disease 14. History of tobacco abuse 15. Hepatomegaly PLAN: 1. Recommended CT of the abdomen and pelvis with IV contrast secondary to hepatomegaly and elevated LFTs and history of hypertriglyceridemia with pancreatitis risk. Prior ultrasound demonstrated possible liver disease. 2. I've ordered laboratory results of repeat comprehensive metabolic panel, hepatitis panel, vitamin D, hemoglobin A1c. Hemoglobin A1c of prior was too high over 10.0. She understands that poorly controlled diabetes increases perioperative complications for infection. 3. Urine nicotine test recommended for recent history of tobacco abuse 4. Referral to motorcycle repairer recommended for poorly controlled and worsening diabetes despite diabetic education. Hemoglobin A1c goal less than 8 described including random blood sugar glucose of 150s or less. 5. She is seeking the gastric bypass.Surgical intervention on hold pending improved glycemic control and nicotine abstinence. 6. Potential cholecystectomy pending further results of imaging studies and laboratory work.
[2018-06-15 13:56] LABS: ALT 188 U/L (9-52); AST 153 U/L (14-36); Albumin/Globulin Ratio 1.9; Alkaline Phosphatase 77 U/L (38-126); Amylase 48 U/L (30-110); Anion Gap 14 mmol/L; Blood Urea Nitrogen 11 mg/dL (7-17); Calcium 10.4 mg/dL (8.4-10.2); Carbon Dioxide 26 mmol/L (22-30); Chloride 98 mmol/L (98-107); Cholesterol 180 mg/dL (<200); Globulin 2.7 g/dL; Glucose 110 mg/dL (74-99); HDL Cholesterol 34 mg/dL (40-60); LDL Cholesterol,Calculated 98 mg/dL (0-99); Lipase 97 U/L (23-300); Potassium 3.9 mmol/L (3.5-5.1); Sodium 138 mmol/L (137-145); Total Bilirubin 0.7 mg/dL (0.2-1.3); Total Protein 7.7 g/dL (6.3-8.2); Triglycerides 241 mg/dL (<150)
[2018-06-15 19:19] LABS: Vitamin D 25 Hydroxy 33.9 ng/mL (30.0-100.0)
[2018-06-15 20:49] LABS: Hepatitis A Antibody IgM Non-Reactive (Non-Reactive); Hepatitis B Core IgM Non-Reactive (Non-Reactive)
[2018-06-15 21:37] LABS: Hemoglobin A1C 8.7 % (4.0-6.0)
== END ==
LOC: BARWHC3 11:44
PROVIDERS: ATTEND Surgery Plastic and Reconstructive Surgery
DX: E66.01 Morbid (severe) obesity due to excess calories (principal); M17.0 Bilateral primary osteoarthritis of knee; I11.9 Hypertensive heart disease without heart failure; E78.5 Hyperlipidemia, unspecified; F41.8 Other specified anxiety disorders; E11.9 Type 2 diabetes mellitus without complications; E55.9 Vitamin D deficiency, unspecified; R16.0 Hepatomegaly, not elsewhere classified; E78.1 Pure hyperglyceridemia; R79.89 Other specified abnormal findings of blood chemistry; E89.1 Postprocedural hypoinsulinemia; Z83.79 Family history of other diseases of the digestive system; Z87.891 Personal history of nicotine dependence; Z79.899 Other long term (current) drug therapy; Z79.84 Long term (current) use of oral hypoglycemic drugs; Z68.38 Body mass index [BMI] 38.0-38.9, adult; Z71.51 Drug abuse counseling and surveillance of drug abuser
CPT/HCPCS: 36415; 80053; 80061; 80074; 80323; 82150; 82306; 83036; 83690; 99211

== ENCOUNTER 2018-07-01 09:42 | Emergency (ER) | payer BC ==
[2018-07-01] MEDS ORDERED: MORPHINE SULFATE 2 MG/ML SYRINGE IVP STA (10:10)
[2018-07-01] MEDS ORDERED: SODIUM CHLORIDE 0.9% 1,000 ML IV STA (10:10)
[2018-07-01 10:29] LABS: Appearance,Urine Clear (Clear); Bilirubin,Urine Negative (Negative); Blood,Urine Trace (Negative); Color,Urine Yellow; Glucose,Urine (UA) 4+ (Negative); Leukocyte Esterase,Urine Negative (Negative); Mucus,Urine Rare /hpf; Nitrite,Urine Negative (Negative); PH, Urine 5.5 (5.0-8.0); Protein,Urine 2+ (Negative); RBC,Urine 2 /hpf (0-5); Specific Gravity,Urine 1.043 (1.001-1.035); Squamous Epithelial Cell,Urine 3 /hpf (0-4); Urobilinogen,Urine <2.0 mg/dL (<2.0); WBC,Urine 1 /hpf (0-5)
--- NOTE | 2018-07-01 11:09 | ED ---
Abdominal Pain HPI - General Chief Complaint: Abdominal Pain Stated Complaint: abd pain Source: patient Mode of arrival: ambulatory Limitations: no limitations - History of Present Illness Initial Comments: 38-year-old female presenting today for chief complaint of abdominal pain, diarrhea. Pt states she began experiencing severe crampy abdominal pain mostly midline of center of abdomen 3 days prior. She states she has been having vomiting and diarrhea for the past 2 days. Patient states the diarrhea is watery occurring recurrently in small amounts multiple times a day. Patient had an episode in the emergency department upon arrival. Patient denies melena hematochezia she has hematemesis she states she has not been vomiting since yesterday. Patient denies any sick contacts. Denies recent travel. Denies fever, chills or nightsweats. She denies any pelvic pain, vaginal bleeding or vaginal discharge. Patient denies stating she has had a partial hysterectomy. Patient denies any radiation the pain, or specific alleviating DrRadha Quintanilla she states she does seem to nose increasing pain prior to episode of diarrhea. - Related Data Home Medications Medication Instructions Recorded Confirmed ALPRAZolam [Xanax] 0.25 mg PO TID 12/03/17 07/01/18 Citalopram Hydrobromide 20 mg PO DAILY 12/03/17 07/01/18 [Citalopram HBr] Ezetimibe [Zetia] 10 mg PO DAILY 12/03/17 07/01/18 Fenofibrate Nanocrystallized 145 mg PO DAILY 12/03/17 07/01/18 [Tricor] Multivitamins, Thera [Multivitamin 1 tab PO DAILY 12/03/17 07/01/18 (formulary)] glyBURIDE [Diabeta] 2.5 mg PO DAILY 12/03/17 07/01/18 metFORMIN HCL [Glucophage] 500 mg PO BID 12/03/17 07/01/18 Ergocalciferol [Vitamin D2 50,000 unit PO WE 07/01/18 07/01/18 (DRISDOL)] Icosapent Ethyl [Vascepa] 1 gm PO BID 07/01/18 07/01/18 Lisinopril [Zestril] 20 mg PO DAILY 07/01/18 07/01/18 [place]-3 Fatty Acids/Fish Oil [Fish 1,000 mg PO DAILY 07/01/18 07/01/18 Oil 1,000 mg Softgel] Spironolactone [Aldactone] 25 mg PO BID 07/01/18 07/01/18 Previous Rx's Medication Instructions Recorded Omeprazole 40 mg PO DAILY #30 capsule. 01/26/18 Allergies Allergy/AdvReac Type Severity Reaction Status Date / Time No Known Allergies Allergy Verified 07/01/18 10:01 Review of Systems ROS Statement: Those systems with pertinent positive or pertinent negative responses have been documented in the HPI. ROS Other: All systems not noted in ROS Statement are negative. Past Medical History Past Medical History: Diabetes Mellitus, Hyperlipidemia, Hypertension, Osteoarthritis (OA) History of Any Multi-Drug Resistant Organisms: None Reported Past Surgical History: Hysterectomy Past Anesthesia/Blood Transfusion Reactions: No Reported Reaction Past Psychological History: Anxiety Smoking Status: Former smoker Past Alcohol Use History: None Reported Past Drug Use History: None Reported General Exam - General Exam Comments Initial Comments: General: The patient is awake and alert, in no distress, and does not appear acutely ill. Eye: Pupils are equal, round and reactive to light, extra-ocular movements are intact. No nystagmus. There is normal conjunctiva bilaterally. No signs of icterus. Ears, nose, mouth and throat: There are moist mucous membranes and no oral lesions. Neck: The neck is supple, there is no tenderness or JVD. Cardiovascular: There is a regular rate and rhythm. No murmur, rub or gallop is appreciated. Respiratory: Lungs are clear to auscultation, respirations are non-labored, breath sounds are equal. No wheezes, stridor, rales, or rhonchi. Gastrointestinal: Abdomen obese. Soft, non-distended, tenderness just below the belly button without masses or organomegaly noted. There is no rebound or guarding present. No rigidity. No CVA tenderness. Bowel sounds are unremarkable. Musculoskeletal: Normal ROM, no tenderness. Strength 5/5. Sensation intact. Pulses equal bilaterally 2+. Neurological: A&O x 3. CN II-XII intact, There are no obvious motor or sensory deficits. Coordination appears grossly intact. Speech is normal. Skin: Skin is warm and dry and no rashes or lesions are noted. Psychiatric: Cooperative, appropriate mood & affect, normal judgment. Limitations: no limitations Course Vital Signs 05/15/19 05/15/19 09:45 12:00 Temperature 98.8 F Pulse Rate 105 H 89 Respiratory 20 18 Rate Blood Pressure 118/78 121/81 O2 Sat by Pulse 97 96 Oximetry Medical Decision Making - Medical Decision Making 38-year-old female presenting for vomiting, diarrhea abdominal pain 2-3 days. Patient states that she has not had fever or blood in stools. On examination patient has pain to palpation. No rigidity no guarding. CT reveal colitis. Most likely a gastroenteritis. Patient has elevated blood glucose she has not taken her metformin in 2-3 days. Patient appears tried examination was given IV hydration. Patient is acetone negative with normal anion gap. I do not feel patient has evidence of DKA. At this time feel patient is stable for discharge her sent back treatment, an increase of fluid at home. Patient is agreeable care plan and was able to tolerate oral intake. Patient was discharged appearing well and is to follow-up with primary care provider in 2-3 days. Return parameters were discussed at length with patient who verbalizes understanding. Patient discharged appearing well after discussed the case with a provider Dr. Arreaga who is agreeable with d/c and care plan today. - Lab Data Result diagrams: 07/01/18 10:25 07/01/18 10:25 Lab Results 07/01/18 07/01/18 07/01/18 Range/Units 10:14 10:14 10:25 WBC (3.8-10.6) k/uL RBC (3.80-5.40) m/uL Hgb (11.4-16.0) gm/dL Hct (34.0-46.0) % MCV (80.0-100.0) fL MCH (25.0-35.0) pg MCHC (31.0-37.0) g/dL RDW (11.5-15.5) % Plt Count (150-450) k/uL Neutrophils % % Lymphocytes % % Monocytes % % Eosinophils % % Basophils % % Neutrophils # (1.3-7.7) k/uL Lymphocytes # (1.0-4.8) k/uL Monocytes # (0-1.0) k/uL Eosinophils # (0-0.7) k/uL Basophils # (0-0.2) k/uL Sodium 136 L (137-145) mmol/L Potassium 4.3 (3.5-5.1) mmol/L Chloride 102 (98-107) mmol/L Carbon Dioxide 24 (22-30) mmol/L Anion Gap 10 mmol/L BUN 11 (7-17) mg/dL Creatinine 0.57 (0.52-1.04) mg/dL Est GFR (CKD-EPI)AfAm >90 (>60 ml/min/1.73 sqM) Est GFR (CKD-EPI)NonAf >90 (>60 ml/min/1.73 sqM) Glucose 236 H (74-99) mg/dL Calcium 9.4 (8.4-10.2) mg/dL Total Bilirubin 0.6 (0.2-1.3) mg/dL AST 30 (14-36) U/L ALT 49 (9-52) U/L Alkaline Phosphatase 88 (38-126) U/L Total Protein 7.0 (6.3-8.2) g/dL Albumin 4.4 (3.5-5.0) g/dL Amylase 31 (30-110) U/L Lipase 99 (23-300) U/L Urine Color Yellow Urine Appearance Clear (Clear) Urine pH 5.5 (5.0-8.0) Ur Specific [place] 1.043 H (1.001-1.035) Urine Protein 2+ H (Negative) Urine Glucose (UA) 4+ H (Negative) Urine Ketones 2+ H (Negative) Urine Blood Trace H (Negative) Urine Nitrite Negative (Negative) Urine Bilirubin Negative (Negative) Urine Urobilinogen <2.0 (<2.0) mg/dL Ur Leukocyte Esterase Negative (Negative) Urine RBC 2 (0-5) /hpf Urine WBC 1 (0-5) /hpf Ur Squamous Epith Cells 3 (0-4) /hpf Urine Mucus Rare H (None) /hpf Urine HCG, Qual Not Detected (Not Detectd) Acetone, Qual (Negative) 07/01/18 07/01/18 Range/Units 10:25 10:25 WBC 9.3 (3.8-10.6) k/uL RBC 4.79 (3.80-5.40) m/uL Hgb 14.5 (11.4-16.0) gm/dL Hct 43.8 (34.0-46.0) % MCV 91.4 (80.0-100.0) fL MCH 30.2 (25.0-35.0) pg MCHC 33.1 (31.0-37.0) g/dL RDW 12.9 (11.5-15.5) % Plt Count 266 (150-450) k/uL Neutrophils % 73 % Lymphocytes % 19 % Monocytes % 5 % Eosinophils % 1 % Basophils % 0 % Neutrophils # 6.8 (1.3-7.7) k/uL Lymphocytes # 1.8 (1.0-4.8) k/uL Monocytes # 0.5 (0-1.0) k/uL Eosinophils # 0.1 (0-0.7) k/uL Basophils # 0.0 (0-0.2) k/uL Sodium (137-145) mmol/L Potassium (3.5-5.1) mmol/L Chloride (98-107) mmol/L Carbon Dioxide (22-30) mmol/L Anion Gap mmol/L BUN (7-17) mg/dL Creatinine (0.52-1.04) mg/dL Est GFR (CKD-EPI)AfAm (>60 ml/min/1.73 sqM) Est GFR (CKD-EPI)NonAf (>60 ml/min/1.73 sqM) Glucose (74-99) mg/dL Calcium (8.4-10.2) mg/dL Total Bilirubin (0.2-1.3) mg/dL AST (14-36) U/L ALT (9-52) U/L Alkaline Phosphatase (38-126) U/L Total Protein (6.3-8.2) g/dL Albumin (3.5-5.0) g/dL Amylase (30-110) U/L Lipase (23-300) U/L Urine Color Urine Appearance (Clear) Urine pH (5.0-8.0) Ur Specific [place] (1.001-1.035) Urine Protein (Negative) Urine Glucose (UA) (Negative) Urine Ketones (Negative) Urine Blood (Negative) Urine Nitrite (Negative) Urine Bilirubin (Negative) Urine Urobilinogen (<2.0) mg/dL Ur Leukocyte Esterase (Negative) Urine RBC (0-5) /hpf Urine WBC (0-5) /hpf Ur Squamous Epith Cells (0-4) /hpf Urine Mucus (None) /hpf Urine HCG, Qual (Not Detectd) Acetone, Qual Negative (Negative) Disposition Clinical Impression: Diarrhea, Vomiting, Abdominal cramping Disposition: HOME SELF-CARE Condition: Good Instructions (If sedation given, give patient instructions): Loperamide (By mouth), Dehydration (ED), Acute Nausea and Vomiting (ED), Acute Diarrhea (ED) Additional Instructions: Please use medication as discussed. Please follow-up with family doctor in the next 2 days, for glucose management. Please return to emergency room if the symptoms increase or worsen or for any other concerns. Is patient prescribed a controlled substance at d/c from ED?: No Referrals: Mirna Samuel, PAC [Primary Care Provider] - 1-2 days Time of Disposition: 12:13
[2018-07-01 11:12] LABS: Ketones,Urine 2+ (Negative)
[2018-07-01 11:13] LABS: Basophils % (A) 0 %; Eosinophils # (A) 0.1 k/uL (0-0.7); Eosinophils % (A) 1 %; HCT 43.8 % (34.0-46.0); HGB 14.5 gm/dL (11.4-16.0); Lymphocytes # (A) 1.8 k/uL (1.0-4.8); Lymphocytes % (A) 19 %; MCH 30.2 pg (25.0-35.0); MCHC 33.1 g/dL (31.0-37.0); MCV 91.4 fL (80.0-100.0); Monocytes # (A) 0.5 k/uL (0-1.0); Monocytes % (A) 5 %; Neutrophils # (A) 6.8 k/uL (1.3-7.7); Neutrophils % (A) 73 %; Platelet Count 266 k/uL (150-450); RBC 4.79 m/uL (3.80-5.40); RDW 12.9 % (11.5-15.5); WBC 9.3 k/uL (3.8-10.6)
[2018-07-01 11:20] LABS: ALT 49 U/L (9-52); AST 30 U/L (14-36); Albumin 4.4 g/dL (3.5-5.0); Alkaline Phosphatase 88 U/L (38-126); Amylase 31 U/L (30-110); Anion Gap 10 mmol/L; Blood Urea Nitrogen 11 mg/dL (7-17); Calcium 9.4 mg/dL (8.4-10.2); Carbon Dioxide 24 mmol/L (22-30); Chloride 102 mmol/L (98-107); Glucose 236 mg/dL (74-99); Lipase 99 U/L (23-300); Potassium 4.3 mmol/L (3.5-5.1); Sodium 136 mmol/L (137-145); Total Bilirubin 0.6 mg/dL (0.2-1.3)
[2018-07-01] MEDS ORDERED: SODIUM CHLORIDE 0.9% 1,000 ML IV ONE (11:55)
[2018-07-01 12:06] VITALS: RESP 18
--- NOTE | 2018-07-01 12:06 | CT ---
EXAMINATION TYPE: CT abdomen pelvis w con DATE OF EXAM: 07/01/2018 HISTORY: Periumbilical pain, nausea, vomiting, diarrhea. CT DLP: 1631.5mGycm Automated Exposure Control for Dose Reduction was Utilized. CONTRAST: CT scan of the abdomen and pelvis is performed without oral but with IV Contrast, patient injected wi th 100 mL of Isovue 300. COMPARISON: CT abdomen and pelvis from just over 2 weeks ago. FINDINGS: LUNG BASES: No significant abnormality is appreciated. LIVER/GB: Liver remains markedly hypodense relative to spleen consistent with diffuse fatty infiltrat ion. Mild hepatomegaly is redemonstrated. PANCREAS: No significant abnormality is seen. SPLEEN: No significant abnormality is seen. ADRENALS: No significant abnormality is seen. KIDNEYS: No significant abnormality is seen. BOWEL: Evaluation bowel is suboptimal secondary to lack of enteric contrast. There is no suspicious s mall or large bowel dilatation. There is moderate wall thickening in the colon from the hepatic flexu re through the splenic flexure with mild to moderate wall thickening involving the entire left colon into the proximal to mid sigmoid colon. A underlying colitis is felt present. Terminal ileum felt wit hin normal limits. Normal-appearing appendix is extending medially from cecum coronal image 66. UTERUS/ADNEXA: Uterus is surgically absent or markedly atrophic. Both ovaries are normal in size in t he adnexa axial image 76. LYMPH NODES: No greater than 1cm abdominal or pelvic lymph nodes are appreciated. OSSEOUS STRUCTURES: Hemangioma posterior L1 level is redemonstrated. Multilevel moderate spurring in the thoracic spine is again seen. OTHER: No significant additional abnormality is seen. IMPRESSION: New mild to moderate fairly long segment uncomplicated acute colitis. Differential includ es infectious and inflammatory etiologies. Correlate clinically.
[2018-07-01] MEDS ORDERED: INSULIN REGULAR 100 UNIT/ML VIAL SQ ONE (12:12)
[2018-07-01 12:42] LABS: Glucose,Whole Blood 207 mg/dL (75-99)
[2018-07-01 12:54] VITALS: BP 127/76; PULSE 87; TEMP 97.9
== END 2018-07-01 12:54 | disposition home or self-care (01) ==
LOC: EC 09:42
DX: R10.9 Unspecified abdominal pain (principal); R11.10 Vomiting, unspecified; K52.9 Noninfective gastroenteritis and colitis, unspecified; E11.9 Type 2 diabetes mellitus without complications; E78.5 Hyperlipidemia, unspecified; I10 Essential (primary) hypertension; F41.9 Anxiety disorder, unspecified; Z79.899 Other long term (current) drug therapy; Z87.891 Personal history of nicotine dependence; Z90.710 Acquired absence of both cervix and uterus
CPT/HCPCS: 36415; 80053; 82150; 82009; 83690; 85025; 81001; 81025; 74177; 99284; 96374; 96361 ×2; J2270; Q9967

== ENCOUNTER → 2018-07-22 | Outpatient (CLI) | payer BC ==
--- NOTE | 2018-07-22 17:28 | P.PN ---
Subjective Progress Note Date: 07/22/18 DATE OF SERVICE: 07/22/2018 CHIEF COMPLAINT: Right upper quadrant abdominal pain HISTORY OF PRESENT ILLNESS: John House is a 38-year-old female who presents with uncontrolled diabetes type 2 including hypertensive heart disease, hyperlipidemia. She went to the emergency room recently in the last 2 weeks complaining of right upper quadrant abdominal pain including radiation to the right upper back and right flank. She confirms fatty food intolerance including change in bowel habits. She reports moderate gain less than 3 weeks after coming off her high protein diet. She reports change in bowel habits and family history of colon cancer. She comes in with new abdominal pain. Her highest weight is 231 pounds. At height of 5 feet 5 inches, her ideal body weight is 149 pounds. She comes in 230 pounds from 217 pounds, 1 month ago. She has gained 13 pound in 1 month. Her body mass index highest was 38.5 to 38.2. PAST MEDICAL HISTORY: 1. Morbid obesity due to excess calories 2. Body mass index of 38.5 3. Osteoarthritis of the knees. 4. Osteoarthritis of the lower back. 5. Hypertensive heart disease. 6. Hyperlipidemia 7. Anxiety disorder 8. Depressive disorder 9. Diabetes type 2, poorly controlled. PAST SURGICAL HISTORY: 1. Hysterectomy HOME MEDICATIONS: ALLERGIES: Home Medications Medication Instructions Recorded Confirmed Type ALPRAZolam [Xanax] 0.25 mg PO TID 12/03/17 12/03/17 History Citalopram Hydrobromide 20 mg PO DAILY 12/03/17 12/03/17 History [Citalopram HBr] Ezetimibe [Zetia] 10 mg PO DAILY 12/03/17 12/03/17 History Fenofibrate Nanocrystallized 1 tab PO DAILY 12/03/17 12/03/17 History [Tricor] Lisinopril-Hctz 20-25 mg 1 tab PO DAILY 12/03/17 12/03/17 History [Zestoretic 20-25] Multivitamins, Thera [Multivitamin 1 tab PO DAILY 12/03/17 12/03/17 History (formulary)] [place]-3 Fatty Acids/Fish Oil [Fish 1,000 mg PO BID 12/03/17 12/03/17 History Oil 1,000 mg Softgel] glyBURIDE [Diabeta] 2.5 mg PO DAILY 12/03/17 12/03/17 History metFORMIN HCL [Glucophage] 500 mg PO BID 12/03/17 12/03/17 History Allergies Allergy/AdvReac Type Severity Reaction Status Date / Time No Known Allergies Allergy Verified 11/27/17 12:56 SOCIAL HISTORY: Recent tobacco use. FAMILY HISTORY: No family history of ulcerative colitis disease or Crohn's disease. Family history of morbid obesity. No lupus in the family. No reports of stomach or esophageal cancer. REVIEW OF ORGAN SYSTEMS: CONSTITUTIONAL: At height of 5 feet 5 inches, her ideal body weight is 149 pounds. She comes in 217 pounds. Her body mass index highest was 38.5. HEENT: Denies any active troubles with vision or hearing. No troubles with swallowing. ENDOCRINE: Has diabetes. No hypothyroidism. CARDIOVASCULAR: No reports of palpitations or heart attacks or chest pain. RESPIRATORY: Has daytime somnolence. Has asthma. GI: Denies any bright red blood per rectum. No diarrhea. Has constipation. MUSCULOSKELETAL: Has lower back pain and joint pain. Has osteoarthritis of the knees. NEURO: No headaches. No seizure disorders. PSYCH: Has depression. No suicidal ideation. RHEUMATOLOGIC: No lupus. No rheumatoid arthritis. HEMATOLOGIC: Denies any abnormal bleeding or bruising. No personal history of DVTs. SKIN: No rash. No skin cancer. PHYSICAL EXAM: VITAL SIGNS: Height 5 foot 5 inches, weight 230 pounds. BMI 38.3 Vital Signs Temp 98.1 F 07/22/18 16:48 Pulse 83 07/22/18 16:48 Resp 16 07/22/18 16:48 BP 120/63 07/22/18 16:48 Pulse Ox GENERAL: Well-developed in no acute distress. HEENT: No scleral icterus. Extraocular movements grossly intact. Hears conver sational speech. No nasal drainage. NECK: Supple without lymphadenopathy. CHEST: Nonlabored respirations with equal bilateral excursions. CARDIOVASCULAR: Regular rate and regular rhythm. Distal 2+ pulses. ABDOMEN: Obese, soft, nondistended. MUSCULOSKELETAL: No clubbing, cyanosis. NEURO: No focal or lateralizing signs. Cranial nerves 2 through 12 grossly within normal limits. PSYCH: Appropriate affect. Alert and oriented to person, place and time. SKIN: Good skin turgor. Well perfused. STUDIES: CT of the abdomen and pelvis reviewed alongside the patient demonstrating moderate inflammation along the colon consistent with colitis. REPORT: Reviewed also consistent with colitis. Fatty liver disease identified. LABS: CBC demonstrates a leukocytosis. Blood sugars elevated over 200-250. ASSESSMENT: 1. Morbid obesity due to excess calories 2. Body mass index of 38.3 3. Osteoarthritis of the knees. 4. Osteoarthritis of the lower back. 5. Hypertensive heart disease. 6. Hyperlipidemia 7. Anxiety disorder 8. Depressive disorder 9. Diabetes type 2, uncontrolled, worsening 10. Vitamin D deficiency 11. Hypertriglyceridemia with risk for pancreatitis 12. Elevated liver function tests 13. Family history of liver disease 14. History of tobacco abuse 15. Hepatomegaly 16. New colitis 17. Cholecystitis PLAN: 1. Bariatric options between a sleeve, band and a Devante-en-Y gastric bypass were reviewed in detail. The patient elected for a gastric bypass. Robotic assisted approach described. 2. The [place] [facility] Data was also reviewed with benefits and risks as described. 3. An 8 page second-generation bariatric consent form was reviewed in detail including potential of bleeding, infection, leaks, adequate weight loss, nutritional deficiencies which the patient demonstrated understanding of the risks. 4. A 2 week high-protein low caloric 800 kcal diet described to address hepatomegaly. 5. Preoperative labs including complete metabolic panel and CBC with type and screen recommended. 6. DVT prophylaxis per [place] [facility]. 7. Antibiotic prophylaxis. 8. Inpatient hospitalization anticipated for more than 2 nights. 9. All questions and concerns were addressed with the patient. 10. Recommend cholecystectomy for cholecystitis. 11. Recommend colonoscopy for history of colitis. 12. Overall, she is high risk for surgical complications with uncontrolled diabetes Objective - Vital Signs Vital signs: Vital Signs Temp 98.1 F 07/22/18 16:48 Pulse 83 07/22/18 16:48 Resp 16 07/22/18 16:48 BP 120/63 07/22/18 16:48 Pulse Ox Intake & Output 07/21/18 07/22/18 07/22/18 18:59 06:59 18:59 Weight 104.326 kg
== END | disposition home or self-care (01) ==
CPT/HCPCS: 99211

== ENCOUNTER 2018-07-27 06:08 | Inpatient (IN) | payer BC ==
--- NOTE | 2018-07-26 18:29 | P.GSHP ---
History of Present Illness H&P Date: 07/27/18 DATE OF SERVICE: 07/27/2018 CHIEF COMPLAINT: Morbid obesity HISTORY OF PRESENT ILLNESS: John House is a 38-year-old female who presents with uncontrolled diabetes type 2 including hypertensive heart disease, hyperlipidemia. Separately, she reports right upper quadrant abdominal pain including fluctuating liver enzyme levels. She has past history of hypertriglyceridemia with triglycerides over 800 which puts her at risk for pancreatitis. She has completed medical supervised weight loss. 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 Her highest weight is 231 pounds. At height of 5 feet 5 inches, her ideal body weight is 149 pounds. She comes in 228 pounds from 231 pounds. She has lost 3 pounds. Her body mass index highest was 38.5 to 37.9. PAST MEDICAL HISTORY: 1. Morbid obesity due to excess calories 2. Body mass index of 38.5 3. Osteoarthritis of the knees. 4. Osteoarthritis of the lower back. 5. Hypertensive heart disease. 6. Hyperlipidemia 7. Anxiety disorder 8. Depressive disorder 9. Diabetes type 2, poorly controlled. PAST SURGICAL HISTORY: 1. Hysterectomy HOME MEDICATIONS: ALLERGIES: Home Medications Medication Instructions Recorded Confirmed Type ALPRAZolam [Xanax] 0.25 mg PO TID 12/03/17 12/03/17 History Citalopram Hydrobromide 20 mg PO DAILY 12/03/17 12/03/17 History [Citalopram HBr] Ezetimibe [Zetia] 10 mg PO DAILY 12/03/17 12/03/17 History Fenofibrate Nanocrystallized 1 tab PO DAILY 12/03/17 12/03/17 History [Tricor] Lisinopril-Hctz 20-25 mg 1 tab PO DAILY 12/03/17 12/03/17 History [Zestoretic 20-25] Multivitamins, Thera [Multivitamin 1 tab PO DAILY 12/03/17 12/03/17 History (formulary)] [place]-3 Fatty Acids/Fish Oil [Fish 1,000 mg PO BID 12/03/17 12/03/17 History Oil 1,000 mg Softgel] glyBURIDE [Diabeta] 2.5 mg PO DAILY 12/03/17 12/03/17 History metFORMIN HCL [Glucophage] 500 mg PO BID 12/03/17 12/03/17 History Allergies Allergy/AdvReac Type Severity Reaction Status Date / Time No Known Allergies Allergy Verified 11/27/17 12:56 SOCIAL HISTORY: Recent tobacco use. FAMILY HISTORY: No family history of ulcerative colitis disease or Crohn's disease. Family history of morbid obesity. No lupus in the family. No reports of stomach or esophageal cancer. REVIEW OF ORGAN SYSTEMS: CONSTITUTIONAL: At height of 5 feet 5 inches, her ideal body weight is 149 pounds. She comes in 217 pounds. Her body mass index highest was 38.5. HEENT: Denies any active troubles with vision or hearing. No troubles with swallowing. ENDOCRINE: Has diabetes. No hypothyroidism. CARDIOVASCULAR: No reports of palpitations or heart attacks or chest pain. RESPIRATORY: Has daytime somnolence. Has asthma. GI: Denies any bright red blood per rectum. No diarrhea. Has constipation. MUSCULOSKELETAL: Has lower back pain and joint pain. Has osteoarthritis of the knees. NEURO: No headaches. No seizure disorders. PSYCH: Has depression. No suicidal ideation. RHEUMATOLOGIC: No lupus. No rheumatoid arthritis. HEMATOLOGIC: Denies any abnormal bleeding or bruising. No personal history of DVTs. SKIN: No rash. No skin cancer. PHYSICAL EXAM: VITAL SIGNS: Height 5 foot 5 inches, weight 228 pounds. BMI 37.9 GENERAL: Well-developed in no acute distress. HEENT: No scleral icterus. Extraocular movements grossly intact. Hears conversational speech. No nasal drainage. NECK: Supple without lymphadenopathy. CHEST: Nonlabored respirations with equal bilateral excursions. CARDIOVASCULAR: Regular rate and regular rhythm. Distal 2+ pulses. ABDOMEN: Obese, soft, nondistended. MUSCULOSKELETAL: No clubbing, cyanosis. NEURO: No focal or lateralizing signs. Cranial nerves 2 through 12 grossly within normal limits. PSYCH: Appropriate affect. Alert and oriented to person, place and time. SKIN: Good skin turgor. Well perfused. STUDIES: Ultrasound gallbladder personally reviewed demonstrating mild shadowing within the gallbladder. ASSESSMENT: 1. Morbid obesity due to excess calories 2. Body mass index of 38.4 to 36.2 3. Osteoarthritis of the knees. 4. Osteoarthritis of the lower back. 5. Hypertensive heart disease. 6. Hyperlipidemia 7. Anxiety disorder 8. Depressive disorder 9. Diabetes type 2, uncontrolled, worsening 10. Vitamin D deficiency 11. Hypertriglyceridemia with risk for pancreatitis 12. Elevated liver function tests 13. Family history of liver disease 14. History of tobacco abuse 15. Hepatomegaly 16. Cholecystitis PLAN: 1. Bariatric options between a sleeve, band and a Devante-en-Y gastric bypass were reviewed in detail. The patient elected for gastric bypass. Robotic assisted approach described. 2. The [place] [facility] Data was also reviewed with benefits and risks as described. 3. An 8 page second-generation bariatric consent form was reviewed in detail including potential of bleeding, infection, leaks, adequate weight loss, nutritional deficiencies which the patient demonstrated understanding of the risks. 4. A 2 week high-protein low caloric 800 kcal diet described to address hepatomegaly. 5. Preoperative labs including complete metabolic panel and CBC with type and screen recommended. 6. DVT prophylaxis per [place] [facility]. 7. Antibiotic prophylaxis. 8. Inpatient hospitalization anticipated for more than 2 nights. 9. All questions and concerns were addressed with the patient. 10. 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 History of Any Multi-Drug Resistant Organisms: None Reported Past Surgical History: Hysterectomy Past Anesthesia/Blood Transfusion Reactions: No Reported Reaction Past Psychological History: Anxiety Smoking Status: Former smoker Past Alcohol Use History: None Reported Additional Past Alcohol Use History / Comment(s): 1/2 pack per day on chantex trying to quit Past Drug Use History: None Reported - Past Family History Mother Family Medical History: Cancer Additional Family Medical History / Comment(s): COLON Father Family Medical History: Cancer Medications and Allergies Home Medications Medication Instructions Recorded Confirmed Type ALPRAZolam [Xanax] 0.25 mg PO TID 12/03/17 07/23/18 History Citalopram Hydrobromide 20 mg PO HS 12/03/17 07/23/18 History [Citalopram HBr] Ezetimibe [Zetia] 10 mg PO DAILY 12/03/17 07/23/18 History Fenofibrate Nanocrystallized 145 mg PO QAM 12/03/17 07/23/18 History [Tricor] Multivitamins, Thera [Multivitamin 1 tab PO DAILY 12/03/17 07/23/18 History (formulary)] glyBURIDE [Diabeta] 2.5 mg PO DAILY 12/03/17 07/23/18 History metFORMIN HCL [Glucophage] 500 mg PO BID 12/03/17 07/23/18 History Ergocalciferol [Vitamin D2 50,000 unit PO WE 07/01/18 07/23/18 History (DRISDOL)] Icosapent Ethyl [Vascepa] 1 gm PO BID 07/01/18 07/23/18 History Lisinopril [Zestril] 20 mg PO QAM 07/01/18 07/23/18 History [place]-3 Fatty Acids/Fish Oil [Fish 1,000 mg PO DAILY 07/01/18 07/23/18 History Oil 1,000 mg Softgel] Spironolactone [Aldactone] 25 mg PO QAM 07/01/18 07/23/18 History Omeprazole 40 mg PO QAM 07/23/18 07/23/18 History Allergies Allergy/AdvReac Type Severity Reaction Status Date / Time No Known Allergies Allergy Verified 07/23/18 15:22
[~2018-07-27 06:08] MED LIST: CHLORHEXIDINE GLUCONATE 15 ML CUP MUCOUS MEM ONE; DEXAMETHASONE SOD PHOSPHATE 10 MG/ML 1 ML VIAL IV ONE; ENOXAPARIN 40 MG/0.4 ML SYRINGE SQ STA; ONDANSETRON 4 MG/2 ML VIAL IVP ONE; PANTOPRAZOLE 40 MG/10 ML VIAL IV STA; SCOPOLAMINE 1.5MG/72HR PATCH TRANSDERM ONE; SCOPOLAMINE 1.5MG/72HR PATCH TRANSDERM SCH; ceFAZolin IN SWFI 2 GM/20 ML SYRINGE IVP ONE
[2018-07-27] MEDS: LACTATED RINGERS 1,000 ML IV SCH (07:12)
[2018-07-27] MEDS ORDERED: LIDOCAINE 1% 20 ML VIAL (10MG/ML) FOR IV START INTRADERMA ONE (07:13)
[2018-07-27 07:14] LABS: Glucose,Whole Blood 189 mg/dL (75-99)
[2018-07-27] MEDS ORDERED: GLYCOPYRROLATE 0.2 MG/ML 2 ML VIAL ONE (07:20)
[2018-07-27] MEDS ORDERED: HYDROmorphone (PF) 1 MG/ML ONE (07:20)
[2018-07-27] MEDS ORDERED: INDOCYANINE GREEN 25 MG VIAL IV ONE (07:20)
[2018-07-27] MEDS ORDERED: fentaNYL (PF) 50 MCG/ML 2 ML AMP ONE (07:20)
[2018-07-27] MEDS ORDERED: NEOSTIGMINE 1 MG/ML 10 ML VIAL ONE (07:20)
[2018-07-27] MEDS ORDERED: PHENYLEPHRINE-0.9% NACL SYG 1 MG/10 ML SYRINGE ONE (07:20)
[2018-07-27] MEDS ORDERED: LIDOCAINE 1% INJ 10MG/ML (20 ML MDV) ONE (07:20)
[2018-07-27] MEDS ORDERED: WATER FOR INJECTION, STERILE 10 ML VIAL IV ONE (07:20)
[2018-07-27] MEDS ORDERED: ROCURONIUM BROMIDE 10 MG/ML 10 ML VIAL IV ONE (07:20)
[2018-07-27] MEDS ORDERED: PROPOFOL 10 MG/ML 20 ML VIAL IV ONE (07:20)
[2018-07-27] MEDS ORDERED: SUCCINYLCHOLINE CHLORIDE 100 MG/5 ML SYR IV ONE (07:20)
[2018-07-27] MEDS ORDERED: MIDAZOLAM 2 MG/2 ML VIAL ONE (07:20)
[2018-07-27] MEDS ORDERED: INDOCYANINE GREEN 25 MG VIAL IV STA (08:04)
[2018-07-27] MEDS ORDERED: BUPIVACAIN-EPI 0.25%-1:200,000 30 ML VIAL SQ ONE (08:09)
[2018-07-27] MEDS ORDERED: LACTATED RINGERS 1,000 ML IV ONE (10:59)
--- NOTE | 2018-07-27 11:12 | P.OP ---
Date of Procedure: 07/27/18 Description of Procedure: SURGEON: BALDEV LABOY MD PREOPERATIVE DIAGNOSES: 1. Morbid obesity due to excess calories 2. Body mass index of 38.4 to 37.9 3. Osteoarthritis of the knees. 4. Osteoarthritis of the lower back. 5. Hypertensive heart disease. 6. Hyperlipidemia 7. Anxiety disorder 8. Depressive disorder 9. Diabetes type 2, uncontrolled, worsening 10. Vitamin D deficiency 11. Hypertriglyceridemia with risk for pancreatitis 12. Elevated liver function tests 13. Family history of liver disease 14. History of tobacco abuse 15. Hepatomegaly 16. Cholecystitis POSTOPERATIVE DIAGNOSES: 1. Morbid obesity due to excess calories 2. Body mass index of 38.4 to 37.9 3. Osteoarthritis of the knees. 4. Osteoarthritis of the lower back. 5. Hypertensive heart disease. 6. Hyperlipidemia 7. Anxiety disorder 8. Depressive disorder 9. Diabetes type 2, uncontrolled, worsening 10. Vitamin D deficiency 11. Hypertriglyceridemia with risk for pancreatitis 12. Elevated liver function tests 13. Family history of liver disease 14. History of tobacco abuse 15. Hepatomegaly 16. Chronic cholecystitis 17. Severe hepatomegaly with fatty liver disease OPERATION: 1. Robotic-assisted da Yahir Xi laparoscopic cholecystectomy, multiport with FIREFLY 2. Robotic assisted da Yahir Xi laparoscopic Aris-en-Y gastric bypass, 100 cm antecolic antegastric Aris limb, with 21 mm EEA. 3. Intraoperative esophagogastrojejunoscopy. ANESTHESIA: GETA and local ESTIMATED BLOOD LOSS: 10 mL SPECIMENS REMOVED: Gallbladder COMPLICATIONS: NONE. INDICATIONS: John House is a 38-year-old female who presents with uncontrolled diabetes type 2 including hypertensive heart disease, hyperlipidemia. Separately, she reports right upper quadrant abdominal pain including fluctuating liver enzyme levels. She has past history of hypertriglyceridemia with triglycerides over 800 which puts her at risk for pancreatitis. She has completed medical supervised weight loss. Additionally, she has followed up with machine cloth trimmer including dry wall finisher. Her highest weight is 231 pounds. At height of 5 feet 5 inches, her ideal body weight is 149 pounds. She comes in 228 pounds from 231 pounds. She has lost 3 pounds. Her body mass index highest was 38.5 to 37.9. She now presents to undergo robotic assisted gastric bypass and cholecystectomy. A second-generation bariatric consent form was described in detail including the possibility of protein malnutrition, leaks, gastrojejunal stricture, venous thrombosis, need for further surgery for which she demonstrated understanding. Benefits and risks of the procedure were described at length. Informed consent was obtained. DESCRIPTION: The patient was brought into the operating room theater. She was placed supine. She had received Lovenox subcutaneously for DVT prophylaxis. Additionally she Peridex oral sonia ution as an oral decontaminant was placed per anesthesia. After general induction, the abdomen was prepped and draped in standard sterile fashion. Ioban draping was placed along the abdomen. A robotic da Yahir Xi system was prepped and primed. Proposed port sites were marked with indelible marker along the anterior axillary line bilaterally, mid clavicular line bilaterally with each port marked 10 cm from each other. The mri assistant port was marked along the right lateral lower abdominal wall. The robotic stapler port was marked for the right midclavicular line including along the left midclavicular line. A 5 mm 0 degrees laparoscopic trocar entry was performed along the left upper quadrant. The abdomen was insufflated to 15 mmHg pressure, which she tolerated well. Diagnostic laparoscopy demonstrated no injury to bowel, viscera, or mesentery. The liver surface demonstrated moderate fatty liver disease including hepatomegaly. No large hiatal hernia was encountered. An 8 mm camera port was placed left lateral to the umbilicus at the epigastrium, 15 cm distal to the xiphoid. Next, 12-mm robot stapler port was placed along the right mid abdomen. An 12 mm port was exchanged along the left upper quadrant. An 8 mm port was placed on the left lateral abdominal wall under direct localization. Please note that the ports were placed 18 to 20 cm away from the target anatomy of the stomach. Care was taken to check that each robotic arm was safely away from collision with the bed or the patient. At the epigastrium, a medium sized Sarina liver retractor was placed under direct visualization with the Iron Editorial Specialist placed under the right shoulder of the patient. The patient was repositioned in reverse Trendelenburg position at 16-degress after lowering the bed. The robot was docked over the patient. Using grasper for arm 3, a grasper for arm 1, including vessel sealer for arm 4, the robotic system was docked and primed as described. Instruments were interchanged by the mri assistant including cautery, the needle jinrikisha driver, and stapler. I had sat at the console. The patient was injected with indocyanine green. The robotic arms were repositioned for the gastric bypass portion of the case. Next, the transverse mesocolon was reflected into the upper abdomen preparing for the jejunojejunostomy portion of the case. The ligament of Treitz was identified and measured 60 cm antegrade and marked using 3-0 Silk. The jejunum was divided at the 60 cm point using 60-mm white loads above the suture measurement. The biliopancreatic limb was held in place. The Aris limb was measured 100 cm in an antegrade fashion to avoid tension along the proposed gastrojejunal anastomosis. At 100 cm along the anti-mesenteric border of the Aris limb, a jejunojejunostomy was proposed whereby enterotomies were created along the biliopancreatic limb including the Aris limb using a Bovie cautery. A stay suture of 3-0 Slik was placed to align and create the anastomosis. The enterotomies along the anti-mesenteric borders were created followed by unidirectional fire from the patient's right side using 60 mm white load Smart technology robotic stapler. The jejunojejunostomy was found to be hemostatic. The enterotomy was closed after horizontal mattress stitch of 3-0 silk used to elevate the enterotomy followed by closure with the robotic stapler white load. The jejunal limb was temporarily tacked along the left upper quadrant. Attention was now brought to the creation of the gastrojejunostomy. Along the lesser curvature of the stomach between the second and third veins, dissection was made along the retrogastric space to allow first firing of the robotic staple. Green loads of 4 - 60 mm staplers were used to divide the stomach to create the gastric pouch. The patient was then prepared for placement of a Orvil. A 21-mm Orvil was selected for placement by the nurse line crewman. The Orvil tubing was placed anterior to the staple line of the gastric pouch and brought out through the left inferior lateral port. I re-scrubbed into the case. The robotic arms were temporarily undocked. The Orvil was then carefully and successfully navigated with the help of the nurse line crewman into the gastric pouch. The sutures were identified and divided. The tubing was from the 21 mm anvil. As the Orvil had been placed, the blind jejunal limb was brought proximally into the upper abdomen. No torsion was found upon the Aris limb. Mild tension was identified as the limb was brought along the upper abdomen. The blind jejunal limb was previously opened using hook cautery. The 21-mm EEA stapler was brought through the left anterior lateral port site from the left side. The EEA stapler was brought through the open jejunal limb and its needle was deployed at the antimesenteric border where the anvil were mated for approximately 1 minute upon firing. The stapler was removed after irrigating the shaft of the instrument with warm normal saline. Donuts were found to be intact on both sides, but then on the stomach side. The da Yahir Xi robot arms were then re-docked. I sat at the console. The open jejunal limb defect was closed using 60 mm blue loads after releasing any tension from the blind jejunal limb. Care was taken to avoid any long blind limb to avoid candycane syndrome. Reinforcement sutures were placed along the gastrojejunal anastomosis using 3-0 Vicryl at 9:00 to 12:00 and 3 o'clock position. The Patel and jejunojejunostomy mesenteric defects were obliterated by her intra-abdominal fat. Attention was now brought to the gallbladder portion of the case. Moderate adhesions were from about the gallbladder consistent with chronic cholecystitis. Adhesions were resected using vessel sealer. The gallbladder fundus was retracted over the dome of the liver. Initial attention was brought to the infundibulum which was gently retracted in the inferior lateral approach. Using a grasper, the cystic duct including the cystic artery was carefully skeletonized. FIREFLY was used to identify the cystic artery and cystic structures. Large PLASTIC clips were used throughout the entire case. Using a clip entry level sales representative 2 clips were placed proximally, and 1 clip was placed distally along the cystic duct and then cauterized with the cautery. Again care was taken to avoid any injury to the biliary tree as the common bile duct was clearly visualized during this portion of dissection. Next, the cystic artery was similarly clipped and cauterized. Electro-Bovie cautery was used to remove the gallbladder from the hepatic fossa. Hemostasis was checked and found to be adequate. I then went to the head of the bed to perform the esophagogastrojejunoscopy and a leak test. An Olympus gastroscope was passed along the posterior oropharynx which was unremarkable for any injury to the vocal cords. The scope was passed down to the proximal portion of the pouch, whereby no active bleeding was encountered. Excellent visualization of the gastrojejunostomy anastomosis, including the Aris limb was encountered with endoscopic image obtained. The anastomosis was found to be patent. The gastrointestinal tract was desufflated. No evidence of intraoperative leak was encountered as the gastric pouch and anastomosis were submerged under normal saline solution. The robot was then undocked. I then went back to the bedside of the patient, whereby with coordinated effort of the mri assistant, irrigation was aspirated from the upper abdominal cavity. Tisseal was placed circumferentially over the anastomosis of the gastrojejunostomy. The fascial defect of the EEA stapler was closed using 0 Vicryl in [place]. All instruments and pneumoperitoneum were evacuated from the abdominal cavity. The port correlating with the EEA stapler device was cleansed with normal saline solution and hydrogen peroxide. The rest of incisions were reapproximated using 4-0 Monocryl in an interrupted subcuticular fashion. Local anesthetic was infiltrated along the skin for postop analgesia. Liquid glue was applied to the skin. OptiFoam dressing was placed along the EEA stapler site. At the end of the procedure, needle, sponge and instrument count had been verified correct by the assistant professor surgical technology. She had tolerated the procedure well and was extubated and taken to the postanesthesia unit in stable condition. Intraoperative findings were described to the patient's family who were very pleased with the level of care. Total console time 94 minutes for gastric bypass Total console time 28 minutes for cholecystectomy Operative Findings: 1. Biliopancreatic limb 60 cm 2. Bypass performed using 100 cm aris limb secondary to avoid increased tension at 150 cm. 3. Ny defect and jejunojejunostomy defect obliterated by moderate intra- abdominal fat. 4. Leak test negative with gastrojejunal anastomosis patent and hemostatic. 5. Robotic staplers total of 9 stapler 60-mm: 2 - white, 3 - blue, and 4 - green 6. Reinforcement sutures were placed along the gastrojejunal anastomosis 7. Moderate adhesions about the gallbladder consistent with chronic cholecystitis and right upper quadrant abdominal pain
[2018-07-27] MEDS ORDERED: ACETAMINOPHEN IV (For NPO) 1,000 MG in EMPTY BAG 1 BAG IVPB ONE (11:26)
[2018-07-27] MEDS ORDERED: diphenhydrAMINE 50 MG/ML 1 ML VIAL IVP PRN (11:26)
[2018-07-27] MEDS ORDERED: NALOXONE 0.4 MG/ML 1 ML VIAL IV PRN (11:26)
[2018-07-27 11:39] LABS: Glucose,Whole Blood 274 mg/dL (75-99)
[2018-07-27] MEDS: HYDROmorphone 0.5 MG/0.5 ML SYRINGE IVP PRN ×4 (11:40→13:25)
[2018-07-27] MEDS ORDERED: ACETAMINOPHEN IV (For NPO) 1,000 MG/100 ML VIAL IVPB ONE (11:55)
[2018-07-27] MEDS: INSULIN ASPART (NovoLOG) 100 UNIT/ML VIAL SQ SCH ×3 (12:09→22:02)
[2018-07-27] MEDS: 0.9% NACL WITH KCL 20 MEQ/L 1,000 ML IV SCH ×2 (14:56→21:16)
[2018-07-27] MEDS: ONDANSETRON 4 MG/2 ML VIAL IVP SCH ×2 (14:57→17:23)
[2018-07-27] MEDS: ALBUTEROL NEBULIZED 2.5 MG/3 ML INHALATION SCH ×3 (14:57→20:05)
[2018-07-27] MEDS: HYOSCYAMINE ORAL DROPS 1.875 MG/15 ML BOTTLE PO SCH ×2 (14:57→17:23)
[2018-07-27] MEDS: SIMETHICONE 40 MG/0.6 ML DROPS 2,000 MG/30 ML BOTTLE PO SCH ×2 (14:57→17:23)
[2018-07-27 17:03] LABS: Glucose,Whole Blood 207 mg/dL (75-99)
[2018-07-27] MEDS: HYDROmorphone 1 MG/ML 1 ML SYRINGE IVP PRN (17:24)
[2018-07-27] MEDS: ceFAZolin IN SWFI 2 GM/20 ML SYRINGE IVP SCH (18:10)
[2018-07-27] MEDS ORDERED: SODIUM CHLORIDE 0.9% 1,000 ML IV ONE (19:44)
[2018-07-27] MEDS: METOCLOPRAMIDE 5 MG/ML 2 ML VIAL IVP SCH (19:58)
[2018-07-27 21:18] LABS: Glucose,Whole Blood 189 mg/dL (75-99)
[2018-07-27] MEDS ORDERED: INSULIN ASPART (NovoLOG) 100 UNIT/ML VIAL SQ ONE (21:32)
[2018-07-28] MEDS: HYOSCYAMINE ORAL DROPS 1.875 MG/15 ML BOTTLE PO SCH ×3 (00:19→12:07)
[2018-07-28] MEDS: ONDANSETRON 4 MG/2 ML VIAL IVP SCH ×3 (00:19→12:06)
[2018-07-28] MEDS: SIMETHICONE 40 MG/0.6 ML DROPS 2,000 MG/30 ML BOTTLE PO SCH ×3 (00:19→12:06)
[2018-07-28] MEDS: HYDROmorphone 1 MG/ML 1 ML SYRINGE IVP PRN ×2 (00:20→05:32)
[2018-07-28] MEDS: ceFAZolin IN SWFI 2 GM/20 ML SYRINGE IVP SCH (01:05)
[2018-07-28] MEDS: METOCLOPRAMIDE 5 MG/ML 2 ML VIAL IVP SCH ×3 (01:05→12:06)
[2018-07-28] MEDS: 0.9% NACL WITH KCL 20 MEQ/L 1,000 ML IV SCH ×2 (02:46→08:10)
[2018-07-28] MEDS: LACTATED RINGERS 1,000 ML IV SCH (04:36)
[2018-07-28] MEDS ORDERED: ROCURONIUM BROMIDE 10 MG/ML 10 ML VIAL IV ONE (07:20)
[2018-07-28] MEDS ORDERED: fentaNYL (PF) 50 MCG/ML 2 ML AMP ONE (07:20)
[2018-07-28] MEDS ORDERED: MIDAZOLAM 2 MG/2 ML VIAL ONE (07:20)
[2018-07-28] MEDS ORDERED: GLYCOPYRROLATE 0.2 MG/ML 2 ML VIAL ONE (07:20)
[2018-07-28] MEDS ORDERED: NEOSTIGMINE 1 MG/ML 10 ML VIAL ONE (07:20)
[2018-07-28] MEDS ORDERED: WATER FOR INJECTION, STERILE 10 ML VIAL IV ONE (07:20)
[2018-07-28] MEDS ORDERED: LIDOCAINE 1% INJ 10MG/ML (20 ML MDV) ONE (07:20)
[2018-07-28] MEDS ORDERED: SUCCINYLCHOLINE CHLORIDE 100 MG/5 ML SYR IV ONE (07:20)
[2018-07-28] MEDS ORDERED: PROPOFOL 10 MG/ML 20 ML VIAL IV ONE (07:20)
[2018-07-28] MEDS ORDERED: HYDROmorphone (PF) 1 MG/ML ONE (07:20)
[2018-07-28] MEDS ORDERED: INDOCYANINE GREEN 25 MG VIAL IV ONE (07:20)
[2018-07-28] MEDS ORDERED: PHENYLEPHRINE-0.9% NACL SYG 1 MG/10 ML SYRINGE ONE (07:20)
[2018-07-28 07:35] LABS: Glucose,Whole Blood 191 mg/dL (75-99)
[2018-07-28 07:42] VITALS: BP 125/74; RESP 20; TEMP 99.1
[2018-07-28] MEDS ORDERED: 1: MVI, ADULT NO.4 WITH VIT K 10 ML, THIAMINE 100 MG, FOLIC ACID 1 MG, POTASSIUM CHLORID IV SCH ×6 (08:00)
[2018-07-28] MEDS: INSULIN ASPART (NovoLOG) 100 UNIT/ML VIAL SQ SCH ×2 (08:09→12:07)
[2018-07-28] MEDS: ENOXAPARIN 40 MG/0.4 ML SYRINGE SQ SCH ×2 (08:09→08:10)
[2018-07-28] MEDS: HYDROcodone/APAP 15 ML SOLUTION PO PRN ×2 (08:09→13:13)
--- NOTE | 2018-07-28 08:30 | P.PN ---
Subjective Progress Note Date: 07/28/18 CHIEF COMPLAINT: Status post gastric bypass and cholecystectomy HISTORY OF PRESENT ILLNESS: The patient is a 38-year-old female postop day 1 status post cholecystectomy for cholecystitis and gastric bypass, 07/27/2018. She is tolerating diet. Blood sugar glucose has been in the under 200s. ROS: She reports mild nausea and vomiting improved today. No bowel movements. No fevers or chills. No new chest pain. No productive sputum PHYSICAL EXAM: VITAL SIGNS: Reviewed CONSTITUTIONAL: Well developed and in no acute distress. EYES: Conjuctivae without sclera icterus. Extraocular movements grossly intact. HEAD, EARS, NOSE, THROAT: Moist buccal mucosa. Head is atraumatic, normocephalic. Hears conversational speech. No nasal drainage. NECK: Supple. No thyroidomegaly. RESPIRATORY: Non-labored respirations and equal bilateral excursions. CARDIOVASCULAR: Palpable 2+ radial pulses. Regular rate. Regular rhythm. ABDOMEN: Incisions clean dry and intact. Soft. No peritonitis. Minimal tenderness left upper quadrant. MUSCULOSKELETAL: No gross deformity of the lower extremities noted. No clubbing. No cyanosis. SKIN: Good skin turgor. Well perfused. NEUROLOGIC: Cranial nerves I through XII grossly intact. No focal or lateralizing signs. PSYCH: Appropriate affect. Alert and oriented to person, place and time. CLINCAL LABS: Blood sugar glucose under 200s. ASSESSMENT: 1. Morbid obesity due to excess calories, BMI 37.9 2. Cholecystitis 3. Diabetes type 2, poorly controlled 4. Tobacco exposure PLAN: 1. Recommend sliding scale insulin for home as she has risk of hypoglycemia on bariatric diet including recent surgery 2. Also, post bariatric diet reviewed including using omeprazole. 3. Follow-up in the bariatric center in 3 days, 07/31/2018 4. Strict tobacco cessation including avoidance of tobacco around her was described to decrease risk for postsurgical complications including wound infections. Objective - Vital Signs Vital signs: Vital Signs Temp 99.1 F 07/28/18 06:42 Pulse 102 H 07/28/18 06:42 Resp 20 07/28/18 06:42 BP 125/74 07/28/18 06:42 Pulse Ox 96 07/28/18 06:45 Intake & Output 07/27/18 07/28/18 07/28/18 18:59 06:59 18:59 Intake Total 1800 3250 Output Total 560 2450 Balance 1240 800 Intake: IV 1800 Intake, IV Titration 3250 Amount 0.9% NaCl with KCl 20 Meq 1350 /l 1,000 ml @ 150 mls/hr IV .Q6H40M [facility] Rx#: [id number] Lactated Ringers 1,000 ml 900 @ 20 mls/hr IV .Q24H [facility] Rx#:[id number] Sodium Chloride 0.9% 1, 1000 000 ml @ 999 mls/hr IV . Q1H1M [facility] Rx#:[id number] Output: Urine 550 2450 Estimated Blood Loss 10 Other: Voiding Method Toilet # Voids 1 - Labs Labs: Abnormal Lab Results - Last 24 Hours (Table) 07/27/18 07/27/18 07/27/18 Range/Units 11:34 17:01 21:06 POC Glucose (mg/dL) 274 H 207 H 189 H (75-99) mg/dL 07/28/18 Range/Units 07:31 POC Glucose (mg/dL) 191 H (75-99) mg/dL
[2018-07-28] MEDS: ALBUTEROL NEBULIZED 2.5 MG/3 ML INHALATION SCH ×2 (08:34→11:00)
[2018-07-28] MEDS ORDERED: EZETIMIBE 10 MG TAB PO SCH (09:00)
[2018-07-28] MEDS ORDERED: LISINOPRIL 20 MG TAB PO SCH (09:00)
[2018-07-28] MEDS ORDERED: PANTOPRAZOLE 40 MG/10 ML VIAL IV SCH (09:00)
[2018-07-28] MEDS ORDERED: SPIRONOLACTONE 25 MG TAB PO SCH (09:00)
[2018-07-28 10:35] LABS: African American GFR (CKD) >90 (>60 ml/min/1.73 sqM); Anion Gap 8 mmol/L; Blood Urea Nitrogen 8 mg/dL (7-17); Calcium 8.5 mg/dL (8.4-10.2); Carbon Dioxide 22 mmol/L (22-30); Chloride 108 mmol/L (98-107); Magnesium 1.7 mg/dL (1.6-2.3); Phosphorus 2.5 mg/dL (2.5-4.5); Potassium 4.1 mmol/L (3.5-5.1); Sodium 138 mmol/L (137-145)
[2018-07-28 10:42] LABS: Basophils % (A) 0 %; Eosinophils % (A) 0 %; HCT 39.9 % (34.0-46.0); HGB 12.9 gm/dL (11.4-16.0); Lymphocytes # (A) 2.6 k/uL (1.0-4.8); Lymphocytes % (A) 17 %; MCH 30.4 pg (25.0-35.0); MCHC 32.3 g/dL (31.0-37.0); MCV 94.2 fL (80.0-100.0); Mean Platelet Volume 7.4; Monocytes # (A) 0.6 k/uL (0-1.0); Monocytes % (A) 4 %; Neutrophils # (A) 12.1 k/uL (1.3-7.7); Neutrophils % (A) 78 %; Platelet Count 279 k/uL (150-450); RBC 4.24 m/uL (3.80-5.40); RDW 14.6 % (11.5-15.5); WBC 15.5 k/uL (3.8-10.6)
[2018-07-28 11:15] VITALS: BMI 37.9
[2018-07-28 11:22] VITALS: PULSE 100
[2018-07-28 11:35] LABS: Glucose,Whole Blood 217 mg/dL (75-99)
[2018-07-28] MEDS ORDERED: ceFAZolin IN SWFI 2 GM/20 ML SYRINGE IVP SCH (12:00)
[2018-07-28] MEDS ORDERED: MAGNESIUM SULFATE-D5W PMX 1 GM in DEXTROSE/WATER 1 100ML.BAG IVPB SCH (12:00)
--- NOTE | 2018-07-28 23:21 | P.DS ---
Providers Date of admission: 07/27/18 06:08 Expected date of discharge: 07/28/18 Attending physician: Helen Meyers Primary care physician: Mirna Samuel Plan - Discharge Summary Discharge Rx Participant: Yes New Discharge Prescriptions: New Bisacodyl [Dulcolax] 5 mg PO DAILY PRN #10 tablet.dr PRN Reason: Constipation Simethicone 40 mg/0.6 ml Drops [Mylicon Drops] 40 mg PO PCHS PRN #30 ml PRN Reason: Gas HYDROcodone/APAP [[place] Elixir 7.5-325Mg/15Ml] 15 ml PO Q6H PRN #180 solution PRN Reason: Pain Ondansetron Odt [Zofran Odt] 4 mg PO Q8HR PRN #9 tab PRN Reason: Nausea INSULIN ASPART (NovoLOG) [NovoLOG (formulary)] See Protocol SQ ACHS #2 vial Continue Citalopram Hydrobromide [Citalopram HBr] 20 mg PO HS Ezetimibe [Zetia] 10 mg PO DAILY Spironolactone [Aldactone] 25 mg PO QAM Lisinopril [Zestril] 20 mg PO QAM Omeprazole 40 mg PO QAM Discontinued metFORMIN HCL [Glucophage] 500 mg PO BID Fenofibrate Nanocrystallized [Tricor] 145 mg PO QAM glyBURIDE [Diabeta] 2.5 mg PO DAILY ALPRAZolam [Xanax] 0.25 mg PO TID Multivitamins, Thera [Multivitamin (formulary)] 1 tab PO DAILY Ergocalciferol [Vitamin D2 (DRISDOL)] 50,000 unit PO WE [place]-3 Fatty Acids/Fish Oil [Fish Oil 1,000 mg Softgel] 1 cap PO DAILY Icosapent Ethyl [Vascepa] 1 gm PO BID Discharge Medication List Citalopram Hydrobromide [Citalopram HBr] 20 mg PO HS 12/03/17 [History] Ezetimibe [Zetia] 10 mg PO DAILY 12/03/17 [History] Lisinopril [Zestril] 20 mg PO QAM 07/01/18 [History] Spironolactone [Aldactone] 25 mg PO QAM 07/01/18 [History] Omeprazole 40 mg PO QAM 07/23/18 [History] Bisacodyl [Dulcolax] 5 mg PO DAILY PRN #10 tablet. 07/27/18 [Rx] HYDROcodone/APAP [[place] Elixir 7.5-325Mg/15Ml] 15 ml PO Q6H PRN #180 solution 07/27/18 [Rx] Ondansetron Odt [Zofran Odt] 4 mg PO Q8HR PRN #9 tab 07/27/18 [Rx] Simethicone 40 mg/0.6 ml Drops [Mylicon Drops] 40 mg PO PCHS PRN #30 ml 07/27/18 [Rx] INSULIN ASPART (NovoLOG) [NovoLOG (formulary)] See Protocol SQ ACHS #2 vial 07/28/18 [Rx] Follow up Appointment(s)/Referral(s): Bariatric Center,. [NON-STAFF] - 07/31/18 10:00 am Patient Instructions/Handouts: Nutrition after Bariatric Surgery (DC), Devante-en-Y Gastric Bypass (DC) Activity/Diet/Wound Care/Special Instructions: NO lifting over 4 pounds in 4 weeks, August 24. May shower. No bathtub soaks, August 10. Dressings to be removed by your doctor in the office. Drink 64 oz of fluid daily. Start protein shakes on . Notify bariatric center for temp over 101.0, increased pain, drainage from incisions. No straws or carbonated beverages. Liquid diet only. Sugar content should be less than 6 g to avoid dumping syndrome. Take MOM for constipation. CRUSH, OPEN, OR CUT TABLETS LARGER THAN A SIZE OF A TIC TAC. NO TOBACCO EXPOSURE! Discharge Disposition: HOME SELF-CARE
== END 2018-07-28 13:21 | disposition home or self-care (01) | DRG 621 ==
LOC: 2ORMAIN 06:08 → 4SSUR 14:47
PROVIDERS: ADMIT Surgery Plastic and Reconstructive Surgery; ATTEND Surgery Plastic and Reconstructive Surgery
PROC: 8E0W4CZ Robotic Assisted Procedure of Trunk Region, Percutaneous Endoscopic Approach (ICD-10-PCS; 2018-07-27)
PROC: 0DJ08ZZ Inspection of Upper Intestinal Tract, Via Natural or Artificial Opening Endoscopic (ICD-10-PCS; 2018-07-27)
PROC: 0D164ZA Bypass Stomach to Jejunum, Percutaneous Endoscopic Approach (ICD-10-PCS; principal; 2018-07-27 07:30)
PROC: 0FT44ZZ Resection of Gallbladder, Percutaneous Endoscopic Approach (ICD-10-PCS; 2018-07-27 07:30)
DX: E66.01 Morbid (severe) obesity due to excess calories (principal); Z68.37 Body mass index [BMI] 37.0-37.9, adult; E11.65 Type 2 diabetes mellitus with hyperglycemia; K76.0 Fatty (change of) liver, not elsewhere classified; I11.9 Hypertensive heart disease without heart failure; K81.1 Chronic cholecystitis; M17.0 Bilateral primary osteoarthritis of knee; K82.8 Other specified diseases of gallbladder; M47.9 Spondylosis, unspecified; E78.5 Hyperlipidemia, unspecified; F41.9 Anxiety disorder, unspecified; F32.9 Major depressive disorder, single episode, unspecified; E55.9 Vitamin D deficiency, unspecified; E78.1 Pure hyperglyceridemia; F17.210 Nicotine dependence, cigarettes, uncomplicated; Z71.6 Tobacco abuse counseling; Z79.84 Long term (current) use of oral hypoglycemic drugs; Z79.899 Other long term (current) drug therapy; Z71.3 Dietary counseling and surveillance; Z90.710 Acquired absence of both cervix and uterus; Z83.49 Family history of other endocrine, nutritional and metabolic diseases; Z80.0 Family history of malignant neoplasm of digestive organs
CPT/HCPCS: 36415; 80051; 82310; 82565; 83735; 84100; 84520; 85025; 86850; 86900; 86901; 88304; 94640; 94760

== ENCOUNTER → 2018-07-31 | Outpatient (CLI) | payer BC ==
--- NOTE | 2018-07-31 10:56 | P.PN ---
Subjective Progress Note Date: 07/31/18 She is doing well. No nausea or vomiting. BSG under 200 without diabetic meds. She reports moderate post incisional pain 270 mL norco prescribed. No infection. Objective - Vital Signs Vital signs: Intake & Output 07/30/18 07/31/18 07/31/18 18:59 06:59 18:59 Weight 100.244 kg
[2018-07-31 10:57] VITALS: BP 129/75; PULSE 93; TEMP 98.4; BMI 36.8
== END | disposition home or self-care (01) ==
LOC: BARWHC3 10:09
PROVIDERS: ATTEND Surgery Plastic and Reconstructive Surgery
DX: G89.18 Other acute postprocedural pain (principal); Z79.899 Other long term (current) drug therapy
CPT/HCPCS: 99211

== ENCOUNTER → 2018-08-05 | Outpatient (CLI) | payer BC ==
[2018-08-05 12:49] VITALS: BP 125/77; PULSE 84; TEMP 98.6; BMI 34.9
--- NOTE | 2018-08-05 12:55 | P.PN ---
Subjective Progress Note Date: 08/05/18 HPI: Her blood sugar has improved to under 160. No nausea or vomiting. She is only on 4 medications. She is walking everywhere. She has minimal seroma along the left upper quadrant incision. Follow up in 2 weeks. She has lost 20 pounds, in 2 weeks. Objective - Vital Signs Vital signs: Vital Signs Temp 98.6 F 08/05/18 12:44 Pulse 84 08/05/18 12:44 Resp BP 125/77 08/05/18 12:44 Pulse Ox Intake & Output 08/04/18 08/05/18 08/05/18 18:59 06:59 18:59 Weight 95.254 kg
== END ==
LOC: BARWHC3 12:26
PROVIDERS: ATTEND Surgery Plastic and Reconstructive Surgery
DX: E66.01 Morbid (severe) obesity due to excess calories (principal); Z68.34 Body mass index [BMI] 34.0-34.9, adult
CPT/HCPCS: 97803; 99211

== ENCOUNTER → 2018-08-26 | Outpatient (CLI) | payer BC ==
--- NOTE | 2018-08-26 13:41 | P.PN ---
Subjective Progress Note Date: 08/26/18 DATE OF SERVICE: 08/26/2018 CHIEF COMPLAINT: Status post gastric bypass HISTORY OF PRESENT ILLNESS: John House is a 38-year-old female status post gastric bypass and cholecystectomy, 07/27/2018. She is 1 month out. Her blood sugars were over 130. She is not requiring any diabetic medications except insulin as needed in the past 6 weeks. She has no complaints. No reports of nausea or vomiting. Her highest weight is 231 pounds. At height of 5 feet 5 inches, her ideal body weight is 149 pounds. She comes in 201 pounds from 210 pounds, 3 weeks ago. She has lost 9 pounds 3 weeks ago. Her body mass index highest was 38.5 to 33.4. Her total lifetime weight loss is 30 pounds. Percent excess weight loss is 37 %. PHYSICAL EXAM: VITAL SIGNS: Height 5 foot 5 inches, weight 201 pounds. BMI 33.4 Vital Signs Temp 98.1 F 08/26/18 13:48 Pulse 60 08/26/18 13:48 Resp 16 08/26/18 13:48 BP 123/75 08/26/18 13:48 Pulse Ox GENERAL: Well-developed in no acute distress. HEENT: No scleral icterus. Extraocular movements grossly intact. Hears conversational speech. No nasal drainage. NECK: Supple without lymphadenopathy. CHEST: Nonlabored respirations with equal bilateral excursions. CARDIOVASCULAR: Regular rate and regular rhythm. Distal 2+ pulses. ABDOMEN: Obese, soft, nondistended. No hernia. MUSCULOSKELETAL: No clubbing, cyanosis. NEURO: No focal or lateralizing signs. Cranial nerves 2 through 12 grossly within normal limits. PSYCH: Appropriate affect. Alert and oriented to person, place and time. SKIN: Good skin turgor. Well perfused. ASSESSMENT: 1. Morbid obesity due to excess calories 2. Body mass index of 38.5 to 33.4 3. Osteoarthritis of the knees. 4. Osteoarthritis of the lower back. 5. Hypertensive heart disease. 6. Hyperlipidemia 7. Anxiety disorder 8. Depressive disorder 9. Diabetes type 2, uncontrolled, now improved 10. Vitamin D deficiency 11. Hypertriglyceridemia with risk for pancreatitis 12. Elevated liver function tests 13. Family history of liver disease 14. History of tobacco abuse 15. Hepatomegaly 16. Status post gastric bypass 17. Status post cholecystectomy 18. Family history of colorectal cancer PLAN: 1. Recommend bariatric labs 2. Recommend colonoscopy for history of colorectal cancer and change in bowel habits in 3 months, November 2018 Laboratory Last Values WBC 7.9 k/uL (3.8-10.6) 08/26/18 14:12 RBC 4.23 m/uL (3.80-5.40) 08/26/18 14:12 Hgb 12.8 gm/dL (11.4-16.0) 08/26/18 14:12 Hct 38.8 % (34.0-46.0) 08/26/18 14:12 MCV 91.8 fL (80.0-100.0) 08/26/18 14:12 MCH 30.2 pg (25.0-35.0) 08/26/18 14:12 MCHC 32.9 g/dL (31.0-37.0) 08/26/18 14:12 RDW 13.5 % (11.5-15.5) 08/26/18 14:12 Plt Count 221 k/uL (150-450) 08/26/18 14:12 PT 10.9 sec (9.0-12.0) 08/26/18 14:12 INR 1.0 (<1.2) 08/26/18 14:12 APTT 26.8 sec (22.0-30.0) 08/26/18 14:12 Sodium 143 mmol/L (135-145) 08/26/18 14:12 Potassium 3.6 mmol/L (3.5-5.5) 08/26/18 14:12 Chloride 107 mmol/L (96-109) 08/26/18 14:12 Carbon Dioxide 26.7 mmol/L (21.6-31.8) 08/26/18 14:12 Anion Gap 9.30 mmol/L (4.00-12.00) 08/26/18 14:12 BUN 9.0 mg/dL (9.0-27.0) 08/26/18 14:12 Creatinine 0.8 mg/dL (0.6-1.5) 08/26/18 14:12 Est GFR (CKD-EPI)AfAm 108.4 (60.0-200.0) 08/26/18 14:12 Est GFR (CKD-EPI)NonAf 93.5 (60.0-200.0) 08/26/18 14:12 BUN/Creatinine Ratio 11.25 Ratio (12.00-20.00) L 08/26/18 14:12 Glucose 94 mg/dL (70-110) 08/26/18 14:[address] Glu mg/dL 163 08/26/18 14:12 Hemoglobin A1c 7.3 % (4.0-6.0) H 08/26/18 14:12 Calcium 9.5 mg/dL (8.7-10.3) 08/26/18 14:12 Phosphorus 4.3 mg/dL (2.4-5.1) 08/26/18 14:12 Magnesium 1.8 mg/dL (1.5-2.4) 08/26/18 14:12 Iron 52 ug/dL (50-170) 08/26/18 14:12 TIBC 334 ug/dL (228-460) 08/26/18 14:12 Iron Saturation 15.57 (12.00-45.00) 08/26/18 14:12 Ferritin 207.9 ng/mL (10.0-291.0) 08/26/18 14:12 Total Bilirubin 0.5 mg/dL (0.3-1.2) 08/26/18 14:12 AST 38 U/L (13-35) H 08/26/18 14:12 ALT 50 U/L (8-44) H 08/26/18 14:12 Alkaline Phosphatase 96 U/L (41-126) 08/26/18 14:12 Total Protein 6.4 g/dL (6.2-8.2) 08/26/18 14:12 Albumin 4.30 g/dL (3.80-4.90) 08/26/18 14:12 Globulin 2.1 g/dL (1.6-3.3) 08/26/18 14:12 Albumin/Globulin Ratio 2.05 g/dL (1.60-3.17) 08/26/18 14:12 Prealbumin 21.0 mg/dL (18.0-42.0) 08/26/18 14:12 Triglycerides 264.0 mg/dL (0.0-149.0) H 08/26/18 14:12 Cholesterol 179 mg/dL (0-200) 08/26/18 14:12 LDL Cholesterol, Calc 94.2 mg/dL (0.0-131.0) 08/26/18 14:12 VLDL Cholesterol, Calc 52.80 mg/dL (5.00-40.00) H 08/26/18 14:12 HDL Cholesterol 32.0 mg/dL (40.0-60.0) L 08/26/18 14:12 Cholesterol/HDL Ratio 5.59 08/26/18 14:12 Vitamin A 39 ug/dL (38-106) 08/26/18 14:12 Vitamin B1 57 ug/L (38-122) 08/26/18 14:12 Vitamin B12 681.0 pg/mL (200.0-944.0) 08/26/18 14:12 Vitamin D 25-Hydroxy 26.4 ng/mL (30.0-100.0) L 08/26/18 14:12 Folate 15.4 ng/mL 08/26/18 14:12 TSH 0.490 uIU/mL (0.350-5.500) 08/26/18 14:12 PTH Intact 35.0 pg/mL (14.0-72.0) 08/26/18 14:12 Copper 1187 ug/L (810-1990) 08/26/18 14:12 Selenium 131 mcg/L (63-160) 08/26/18 14:12 Zinc 88 ug/dL (60-130) 08/26/18 14:12 AST and ALT elevated Triglycerides elevated Vitamin D is low Objective - Labs CBC & Chem 7: 08/26/18 14:12 08/26/18 14:12
[2018-08-26 13:53] VITALS: BP 123/75; PULSE 60; RESP 16; TEMP 98.1; BMI 33.4
[2018-08-26 14:25] LABS: HCT 38.8 % (34.0-46.0); HGB 12.8 gm/dL (11.4-16.0); MCH 30.2 pg (25.0-35.0); MCHC 32.9 g/dL (31.0-37.0); MCV 91.8 fL (80.0-100.0); Mean Platelet Volume 8.2; Platelet Count 221 k/uL (150-450); RBC 4.23 m/uL (3.80-5.40); RDW 13.5 % (11.5-15.5); WBC 7.9 k/uL (3.8-10.6)
[2018-08-26 14:38] LABS: Partial Thromboplastin Time 26.8 sec (22.0-30.0); Prothrombin Time 10.9 sec (9.0-12.0)
[2018-08-26 18:41] LABS: Iron Saturation 15.57 (12.00-45.00)
[2018-08-26 18:52] LABS: Vitamin D 25 Hydroxy 26.4 ng/mL (30.0-100.0)
[2018-08-26 19:03] LABS: African American GFR (CKD) 108.4 (60.0-200.0); Albumin 4.3 g/dL (3.80-4.90); Albumin/Globulin Ratio 2.05 (1.60-3.17); Anion Gap 9.3 mmol/L (4.00-12.00); BUN/Creat Ratio 11.25 Ratio (12.00-20.00); Calcium 9.5 mg/dL (8.7-10.3); Carbon Dioxide 26.7 mmol/L (21.6-31.8); Chol/HDL Ratio 5.59; Globulin 2.1 g/dL (1.6-3.3); LDL Cholesterol,Calculated 94.2 mg/dL (0.0-131.0); Magnesium 1.8 mg/dL (1.5-2.4); Phosphorus 4.3 mg/dL (2.4-5.1); Potassium 3.6 mmol/L (3.5-5.5); Total Bilirubin 0.5 mg/dL (0.3-1.2); Total Protein 6.4 g/dL (6.2-8.2); VLDL Calculation 52.8 mg/dL (5.00-40.00)
[2018-08-26 19:04] LABS: Folate, Serum 15.4 ng/mL
[2018-08-27 00:40] LABS: Hemoglobin A1C 7.3 % (4.0-6.0)
[2018-08-27 13:04] LABS: Zinc, Serum 88 ug/dL (60-130)
[2018-08-28 06:45] LABS: Vitamin A 39 ug/dL (38-106)
[2018-08-28 07:29] LABS: Vit B1(Thiamine) 57 ug/L (38-122)
[2018-08-29 17:30] LABS: Selenium 131 mcg/L (63-160)
== END ==
LOC: BARWHC3 12:56
PROVIDERS: ATTEND Surgery Plastic and Reconstructive Surgery
DX: Z48.815 Encounter for surgical aftercare following surgery on the digestive system (principal); E66.01 Morbid (severe) obesity due to excess calories; M17.0 Bilateral primary osteoarthritis of knee; M47.816 Spondylosis without myelopathy or radiculopathy, lumbar region; I11.9 Hypertensive heart disease without heart failure; E78.5 Hyperlipidemia, unspecified; F41.9 Anxiety disorder, unspecified; F32.9 Major depressive disorder, single episode, unspecified; E11.65 Type 2 diabetes mellitus with hyperglycemia; E55.9 Vitamin D deficiency, unspecified; E78.1 Pure hyperglyceridemia; R79.89 Other specified abnormal findings of blood chemistry; I16.0 Hypertensive urgency; Z68.33 Body mass index [BMI] 33.0-33.9, adult; Z87.891 Personal history of nicotine dependence; Z83.79 Family history of other diseases of the digestive system; Z80.0 Family history of malignant neoplasm of digestive organs; Z90.49 Acquired absence of other specified parts of digestive tract; Z98.84 Bariatric surgery status
CPT/HCPCS: 36415; 80053; 80061; 82306; 82525; 82607; 82728; 82746; 83036; 83540; 83550; 83735; 83970; 84100; 84134; 84255; 84425; 84443; 84590; 84630; 85027; 85610; 85730; 97803; 99211

== ENCOUNTER → 2018-11-04 | Outpatient (CLI) | payer BC ==
[2018-11-04 15:07] VITALS: BP 107/74; PULSE 61; RESP 16; TEMP 97.6; BMI 29.3
--- NOTE | 2018-11-04 15:23 | P.PN ---
Subjective Progress Note Date: 11/04/18 DATE OF SERVICE: 11/04/2018 CHIEF COMPLAINT: Status post gastric bypass HISTORY OF PRESENT ILLNESS: John House is a 38-year-old female status post gastric bypass and cholecystectomy, 07/27/2018. She is happy with her weight loss. She reports tolerating Brussel sprouts. No epigastric pain. She has lost over 50 pounds. She has dysphagia to solid foods. Blood sugars are 80 to 100s. She is off diabetic medications. Her highest weight is 231 pounds. At height of 5 feet 5 inches, her ideal body weight is 149 pounds. She comes in 176 pounds from 201 pounds, 2 months ago. She has lost 24 pounds in 2 months. Her body mass index highest was 38.5 to 29.4. Her total lifetime weight loss is 55 pounds. Percent excess weight loss is 67 %. PAST MEDICAL HISTORY: 1. Morbid obesity due to excess calories 2. Body mass index of 38.5 3. Osteoarthritis of the knees. 4. Osteoarthritis of the lower back. 5. Hypertensive heart disease. 6. Hyperlipidemia 7. Anxiety disorder 8. Depressive disorder 9. Diabetes type 2, poorly controlled. PAST SURGICAL HISTORY: 1. Hysterectomy 2. Gastric bypass 3. Upper endoscopy HOME MEDICATIONS: ALLERGIES: Home Medications Medication Instructions Recorded Confirmed Citalopram Hydrobromide 20 mg PO HS 12/03/17 11/04/18 [Citalopram HBr] Omeprazole 40 mg PO QAM 07/23/18 11/04/18 ALPRAZolam [Xanax] 0.25 mg PO BID PRN 08/05/18 11/04/18 Cholecalciferol (Vitamin D3) 10,000 unit PO DAILY 08/31/18 11/04/18 [Vitamin D3] Previous Rx's Medication Instructions Recorded INSULIN ASPART (NovoLOG) [NovoLOG See Protocol SQ ACHS #2 vial 07/28/18 (formulary)] Allergies Allergy/AdvReac Type Severity Reaction Status Date / Time No Known Allergies Allergy Verified 11/27/17 12:56 SOCIAL HISTORY: Recent tobacco use. FAMILY HISTORY: No family history of ulcerative colitis disease or Crohn's disease. Family history of morbid obesity. No lupus in the family. No reports of stomach or esophageal cancer. REVIEW OF ORGAN SYSTEMS: CONSTITUTIONAL: At height of 5 feet 5 inches, her ideal body weight is 149 pounds. Her highest weight is 231 pounds. Her body mass index highest was 38.5. HEENT: Denies any active troubles with vision or hearing. No troubles with swallowing. ENDOCRINE: Has diabetes. No hypothyroidism. CARDIOVASCULAR: No reports of palpitations or heart attacks or chest pain. RESPIRATORY: Has daytime somnolence. Has asthma. GI: Denies any bright red blood per rectum. No diarrhea. Has constipation. MUSCULOSKELETAL: Has lower back pain and joint pain. Has osteoarthritis of the knees. NEURO: No headaches. No seizure disorders. PSYCH: Has depression. No suicidal ideation. RHEUMATOLOGIC: No lupus. No rheumatoid arthritis. HEMATOLOGIC: Denies any abnormal bleeding or bruising. No personal history of DVTs. SKIN: No rash. No skin cancer. PHYSICAL EXAM: VITAL SIGNS: Height 5 foot 5 inches, weight 176 pounds. BMI 29.4 Vital Signs Temp 97.6 F 11/04/18 15:04 Pulse 61 11/04/18 15:04 Resp 16 11/04/18 15:04 BP 107/74 11/04/18 15:04 Pulse Ox GENERAL: Well-developed in no acute distress. HEENT: No scleral icterus. Extraocular movements grossly intact. Hears conversational speech. No nasal drainage. NECK: Supple without lymphadenopathy. CHEST: Nonlabored respirations with equal bilateral excursions. CARDIOVASCULAR: Regular rate and regular rhythm. Distal 2+ pulses. ABDOMEN: Obese, soft, nondistended. No hernia. MUSCULOSKELETAL: No clubbing, cyanosis. NEURO: No focal or lateralizing signs. Cranial nerves 2 through 12 grossly within normal limits. PSYCH: Appropriate affect. Alert and oriented to person, place and time. SKIN: Good skin turgor. Well perfused. Laboratory Last Values WBC 7.9 k/uL (3.8-10.6) 08/26/18 14:12 RBC 4.23 m/uL (3.80-5.40) 08/26/18 14:12 Hgb 12.8 gm/dL (11.4-16.0) 08/26/18 14:12 Hct 38.8 % (34.0-46.0) 08/26/18 14:12 MCV 91.8 fL (80.0-100.0) 08/26/18 14:12 MCH 30.2 pg (25.0-35.0) 08/26/18 14:12 MCHC 32.9 g/dL (31.0-37.0) 08/26/18 14:12 RDW 13.5 % (11.5-15.5) 08/26/18 14:12 Plt Count 221 k/uL (150-450) 08/26/18 14:12 PT 10.9 sec (9.0-12.0) 08/26/18 14:12 INR 1.0 (<1.2) 08/26/18 14:12 APTT 26.8 sec (22.0-30.0) 08/26/18 14:12 Sodium 143 mmol/L (135-145) 08/26/18 14:12 Potassium 3.6 mmol/L (3.5-5.5) 08/26/18 14:12 Chloride 107 mmol/L (96-109) 08/26/18 14:12 Carbon Dioxide 26.7 mmol/L (21.6-31.8) 08/26/18 14:12 Anion Gap 9.30 mmol/L (4.00-12.00) 08/26/18 14:12 BUN 9.0 mg/dL (9.0-27.0) 08/26/18 14:12 Creatinine 0.8 mg/dL (0.6-1.5) 08/26/18 14:12 Est GFR (CKD-EPI)AfAm 108.4 (60.0-200.0) 08/26/18 14:12 Est GFR (CKD-EPI)NonAf 93.5 (60.0-200.0) 08/26/18 14:12 BUN/Creatinine Ratio 11.25 Ratio (12.00-20.00) L 08/26/18 14:12 Glucose 94 mg/dL (70-110) 08/26/18 14:[address] Glu mg/dL 163 08/26/18 14:12 Hemoglobin A1c 7.3 % (4.0-6.0) H 08/26/18 14:12 Calcium 9.5 mg/dL (8.7-10.3) 08/26/18 14:12 Phosphorus 4.3 mg/dL (2.4-5.1) 08/26/18 14:12 Magnesium 1.8 mg/dL (1.5-2.4) 08/26/18 14:12 Iron 52 ug/dL (50-170) 08/26/18 14:12 TIBC 334 ug/dL (228-460) 08/26/18 14:12 Iron Saturation 15.57 (12.00-45.00) 08/26/18 14:12 Ferritin 207.9 ng/mL (10.0-291.0) 08/26/18 14:12 Total Bilirubin 0.5 mg/dL (0.3-1.2) 08/26/18 14:12 AST 38 U/L (13-35) H 08/26/18 14:12 ALT 50 U/L (8-44) H 08/26/18 14:12 Alkaline Phosphatase 96 U/L (41-126) 08/26/18 14:12 Total Protein 6.4 g/dL (6.2-8.2) 08/26/18 14:12 Albumin 4.30 g/dL (3.80-4.90) 08/26/18 14:12 Globulin 2.1 g/dL (1.6-3.3) 08/26/18 14:12 Albumin/Globulin Ratio 2.05 g/dL (1.60-3.17) 08/26/18 14:12 Prealbumin 21.0 mg/dL (18.0-42.0) 08/26/18 14:12 Triglycerides 264.0 mg/dL (0.0-149.0) H 08/26/18 14:12 Cholesterol 179 mg/dL (0-200) 08/26/18 14:12 LDL Cholesterol, Calc 94.2 mg/dL (0.0-131.0) 08/26/18 14:12 VLDL Cholesterol, Calc 52.80 mg/dL (5.00-40.00) H 08/26/18 14:12 HDL Cholesterol 32.0 mg/dL (40.0-60.0) L 08/26/18 14:12 Cholesterol/HDL Ratio 5.59 08/26/18 14:12 Vitamin A 39 ug/dL (38-106) 08/26/18 14:12 Vitamin B1 57 ug/L (38-122) 08/26/18 14:12 Vitamin B12 681.0 pg/mL (200.0-944.0) 08/26/18 14:12 Vitamin D 25-Hydroxy 26.4 ng/mL (30.0-100.0) L 08/26/18 14:12 Folate 15.4 ng/mL 08/26/18 14:12 TSH 0.490 uIU/mL (0.350-5.500) 08/26/18 14:12 PTH Intact 35.0 pg/mL (14.0-72.0) 08/26/18 14:12 Copper 1187 ug/L (810-1990) 08/26/18 14:12 Selenium 131 mcg/L (63-160) 08/26/18 14:12 Zinc 88 ug/dL (60-130) 08/26/18 14:12 AST and ALT elevated Triglycerides elevated Vitamin D is low Hgb A1c 7.3% ASSESSMENT: 1. Morbid obesity due to excess calories 2. Body mass index of 38.5 to 29.4 3. Osteoarthritis of the knees. 4. Osteoarthritis of the lower back. 5. Hypertensive heart disease. 6. Hyperlipidemia 7. Anxiety disorder 8. Depressive disorder 9. Diabetes type 2, uncontrolled, now improved 10. Vitamin D deficiency 11. Hypertriglyceridemia with risk for pancreatitis 12. Elevated liver function tests 13. Family history of liver disease 14. History of tobacco abuse 15. Hepatomegaly 16. Status post gastric bypass 17. Status post cholecystectomy 18. Family history of colorectal cancer PLAN: 1. Upper endoscopy is recommended for epigastric pain 2. Recommend bariatric labs Objective - Vital Signs Vital signs: Vital Signs Temp 97.6 F 11/04/18 15:04 Pulse 61 11/04/18 15:04 Resp 16 11/04/18 15:04 BP 107/74 11/04/18 15:04 Pulse Ox Intake & Output 11/03/18 11/04/18 11/04/18 18:59 06:59 18:59 Weight 79.974 kg
== END | disposition home or self-care (01) ==
LOC: BARWHC3 13:51
PROVIDERS: ATTEND Surgery Plastic and Reconstructive Surgery
DX: E66.01 Morbid (severe) obesity due to excess calories (principal); Z68.38 Body mass index [BMI] 38.0-38.9, adult; M17.9 Osteoarthritis of knee, unspecified; M46.96 Unspecified inflammatory spondylopathy, lumbar region; I11.9 Hypertensive heart disease without heart failure; E78.5 Hyperlipidemia, unspecified; F41.9 Anxiety disorder, unspecified; F32.9 Major depressive disorder, single episode, unspecified; R13.10 Dysphagia, unspecified; E11.9 Type 2 diabetes mellitus without complications; Z87.891 Personal history of nicotine dependence; Z90.49 Acquired absence of other specified parts of digestive tract; Z98.84 Bariatric surgery status; Z90.710 Acquired absence of both cervix and uterus; Z79.899 Other long term (current) drug therapy
CPT/HCPCS: 97803; 99211

== ENCOUNTER 2018-11-23 06:57 | Day surgery (SDC) | payer BC ==
[2018-11-19 12:28] VITALS: BMI 28.9
[~2018-11-23 06:57] MED LIST changes: -CHLORHEXIDINE GLUCONATE 15 ML CUP MUCOUS MEM ONE; -DEXAMETHASONE SOD PHOSPHATE 10 MG/ML 1 ML VIAL IV ONE; -ENOXAPARIN 40 MG/0.4 ML SYRINGE SQ STA; +LACTATED RINGERS 1,000 ML IV SCH; +LIDOCAINE 1% 20 ML VIAL (10MG/ML) FOR IV START INTRADERMA PRN; -ONDANSETRON 4 MG/2 ML VIAL IVP ONE; -PANTOPRAZOLE 40 MG/10 ML VIAL IV STA; -SCOPOLAMINE 1.5MG/72HR PATCH TRANSDERM ONE; -SCOPOLAMINE 1.5MG/72HR PATCH TRANSDERM SCH; -ceFAZolin IN SWFI 2 GM/20 ML SYRINGE IVP ONE
[2018-11-23 07:12] VITALS: TEMP 97.4
--- NOTE | 2018-11-23 07:17 | P.GSHP ---
History of Present Illness H&P Date: 11/23/18 CHIEF COMPLAINT: GERD HISTORY OF PRESENT ILLNESS: The patient is a 38-year-old female who presents reports gastroesophageal reflux disease. Upper endoscopy was offered for further evaluation and management. PAST MEDICAL HISTORY: Please see list. PAST SURGICAL HISTORY: Please see list. MEDICATIONS: Please see list. ALLERGIES: Please see list. SOCIAL HISTORY: No illicit drug use FAMILY HISTORY: No reports of Crohn disease or ulcerative colitis. REVIEW OF ORGAN SYSTEMS: CONSTITUTIONAL: No reports of fevers or chills. GI: Denies any blood in stools or constipation. PHYSICAL EXAM: VITAL SIGNS: Stable GENERAL: Well-developed and pleasant in no acute distress. HEENT: No scleral icterus. Extraocular movements grossly intact. Moist buccal mucosa. NECK: Supple without lymphadenopathy. CHEST: Unlabored respirations. Equal bilateral excursions. CARDIOVASCULAR: Regular rate and rhythm. Distal 2+ pulses. ABDOMEN: Soft, nondistended. MUSCULOSKELETAL: No clubbing, cyanosis, or edema. ASSESSMENT: 1. Gastroesophageal reflux disease PLAN: 1. Recommend proceeding with an upper endoscopy Past Medical History Past Medical History: Diabetes Mellitus, GERD/Reflux, Hyperlipidemia, Hypertension, Osteoarthritis (OA) Additional Past Medical History / Comment(s): Hx LIVER ENZYMES ELEVATED, RETURNED TO NL. DYSPAGIA, VOMITS MOST ALL FOODS. History of Any Multi-Drug Resistant Organisms: None Reported Past Surgical History: Bariatric Surgery, Cholecystectomy, Hysterectomy Additional Past Surgical History / Comment(s): Gastric bypass 07-27-18, lap choly 07-27-18. EGD. Past Anesthesia/Blood Transfusion Reactions: No Reported Reaction Smoking Status: Former smoker - Past Family History Mother Family Medical History: Cancer Father Family Medical History: Cancer Medications and Allergies Home Medications Medication Instructions Recorded Confirmed Type Citalopram Hydrobromide 20 mg PO HS 12/03/17 11/23/18 History [Citalopram HBr] Omeprazole 40 mg PO QAM 07/23/18 11/23/18 History ALPRAZolam [Xanax] 0.25 mg PO BID PRN 08/05/18 11/23/18 History Cholecalciferol (Vitamin D3) 10,000 unit PO DAILY 08/31/18 11/23/18 History [Vitamin D3] Bariatric Mvi 1 tab PO DAILY 11/19/18 11/23/18 History INSULIN ASPART (NovoLOG) [NovoLOG See Protocol SQ ACHS PRN 11/19/18 11/23/18 History (formulary)] Iron (Unknown Dose) 1 tab PO DAILY 11/19/18 11/23/18 History Allergies Allergy/AdvReac Type Severity Reaction Status Date / Time tuberculin, purified protein Allergy Rash/Hives Verified 11/23/18 07:13 deriva Surgical - Exam Vital Signs Temp Pulse Resp BP Pulse Ox 97.4 F L 56 L 16 117/68 100 11/23/18 07:11 11/23/18 07:11 11/23/18 07:11 11/23/18 07:11 11/23/18 07:11
[2018-11-23 07:27] LABS: Glucose,Whole Blood 99 mg/dL (75-99)
[2018-11-23] MEDS ORDERED: PROPOFOL 10 MG/ML 20 ML VIAL IV ONE (07:34)
[2018-11-23] MEDS ORDERED: LIDOCAINE 1% INJ 10MG/ML (20 ML MDV) ONE (07:34)
[2018-11-23] MEDS ORDERED: GLYCOPYRROLATE 0.2 MG/ML 2 ML VIAL ONE (07:34)
--- NOTE | 2018-11-23 07:48 | P.PCN ---
Date of Procedure: 11/23/18 Description of Procedure: PREOPERATIVE DIAGNOSIS: Dysphagia. Gastroesophageal reflux disease POSTOPERATIVE DIAGNOSIS: Dysphagia. Gastroesophageal reflux disease Gastrojejunal stricture with chronic ulcer without perforation OPERATION: Esophagogastrojejunoscopy with balloon dilatation from 9 to 10 mm. SURGEON: Helen Meyers MD ANESTHESIA: MAC. INDICATIONS: The patient is a 38-year-old female who presents with a history of dysphagia, gastric bypass including new-onset nausea and vomiting. Benefits and risks of the procedure were described. Informed consent was obtained. DESCRIPTION: The patient was brought into the endoscopy suite and laid in the left lateral decubitus position. After a timeout was confirmed, the procedure was initiated. An Olympus gastroscope was passed along the posterior oropharynx down to the distal esophagus where the squamocolumnar junction was unremarkable. The gastric pouch was entered. A gastrojejunal stricture of 9 mm was found as the adult gastroscope was 9.5 mm in size. A [employer] balloon dilator was placed through the scope. Final insufflation up to 10 mm was performed with a total of 2 minutes secondary to risk a perforation with active ulcers. The scope was advanced up to 60 cm from the incisors into the [place] limb. The mucosa of the gastrojejunal anastomosis was intact. However chronic gastrojejunal marginal ulcer was encountered. No full-thickness injury was encountered. The GI tract was desufflated. The patient tolerated the procedure well. FINDINGS: Stricture of approximately 9 mm encountered. Chronic gastrojejunal ulceration encountered. Successful balloon dilatation to 10 mm limited secondary to active gastric u lcers RECOMMENDATIONS: Start combined therapy of Carafate and omeprazole of at least 4 weeks. Plan - Discharge Summary Discharge Rx Participant: No New Discharge Prescriptions: No Action Citalopram Hydrobromide [Citalopram HBr] 20 mg PO HS Omeprazole 40 mg PO QAM ALPRAZolam [Xanax] 0.25 mg PO BID PRN PRN Reason: Anxiety Cholecalciferol (Vitamin D3) [Vitamin D3] 10,000 unit PO DAILY INSULIN ASPART (NovoLOG) [NovoLOG (formulary)] See Protocol SQ ACHS PRN PRN Reason: PER SCALE BS Iron (Unknown Dose) 1 tab PO DAILY Bariatric Mvi 1 tab PO DAILY Discharge Medication List Citalopram Hydrobromide [Citalopram HBr] 20 mg PO HS 12/03/17 [History] Omeprazole 40 mg PO QAM 07/23/18 [History] ALPRAZolam [Xanax] 0.25 mg PO BID PRN 08/05/18 [History] Cholecalciferol (Vitamin D3) [Vitamin D3] 10,000 unit PO DAILY 08/31/18 [History] Bariatric Mvi 1 tab PO DAILY 11/19/18 [History] INSULIN ASPART (NovoLOG) [NovoLOG (formulary)] See Protocol SQ ACHS PRN 11/19/18 [History] Iron (Unknown Dose) 1 tab PO DAILY 11/19/18 [History]
[2018-11-23 08:18] VITALS: BP 108/71; PULSE 52; RESP 18
== END 2018-11-23 08:21 | disposition home or self-care (01) ==
LOC: ORWHC2ENDO 06:57
PROVIDERS: ATTEND Surgery Plastic and Reconstructive Surgery
DX: K95.89 Other complications of other bariatric procedure (principal); K28.9 Gastrojejunal ulcer, unspecified as acute or chronic, without hemorrhage or perforation; K31.89 Other diseases of stomach and duodenum; E11.9 Type 2 diabetes mellitus without complications; E78.5 Hyperlipidemia, unspecified; I10 Essential (primary) hypertension; M19.90 Unspecified osteoarthritis, unspecified site; R13.10 Dysphagia, unspecified; Z87.891 Personal history of nicotine dependence; Z98.84 Bariatric surgery status; K21.9 Gastro-esophageal reflux disease without esophagitis; Z90.49 Acquired absence of other specified parts of digestive tract; Z79.4 Long term (current) use of insulin; Z79.899 Other long term (current) drug therapy; Z91.018 Allergy to other foods; Z88.7 Allergy status to serum and vaccine; F41.9 Anxiety disorder, unspecified
CPT/HCPCS: 43245; J2001; J2704; C1727

== ENCOUNTER → 2018-12-02 | Outpatient (CLI) | payer BC ==
--- NOTE | 2018-12-02 14:59 | P.PN ---
Subjective Progress Note Date: 12/02/18 HPI: No blood pressure medications. BSG is better. She was placed fenofibrate. Her TSH is improved ABDOMEN: soft. ASSESSMENT: 1. Morbid obesty PLAN: 1. Hold on fenofibrate. 2. She feels great since her stretch from 9 to 10 mm 3. Hgb down to 5.2% from over 10.0
[2018-12-02 15:08] VITALS: BP 129/82; PULSE 59; TEMP 98.3; BMI 28.9
== END ==
LOC: BARWHC3 14:00
PROVIDERS: ATTEND Surgery Plastic and Reconstructive Surgery
DX: E66.01 Morbid (severe) obesity due to excess calories (principal); Z68.29 Body mass index [BMI] 29.0-29.9, adult
CPT/HCPCS: 99211

== ENCOUNTER → 2019-01-28 | Outpatient (CLI) | payer BC ==
[2019-01-28 09:23] LABS: HGB 13.2 gm/dL (11.4-16.0); MCH 31.4 pg (25.0-35.0); MCV 95.3 fL (80.0-100.0); Mean Platelet Volume 7.8; Platelet Count 260 k/uL (150-450); RDW 12.9 % (11.5-15.5); WBC 8.3 k/uL (3.8-10.6)
[2019-01-28 15:42] LABS: % Iron Saturation 31.48 (12.00-45.00); Albumin 4.3 g/dL (3.80-4.90); Albumin/Globulin Ratio 2.69 (1.60-3.17); Anion Gap 2.9 mmol/L (4.00-12.00); Calcium 9.4 mg/dL (8.7-10.3); Carbon Dioxide 31.1 mmol/L (21.6-31.8); Chol/HDL Ratio 5.03; Globulin 1.6 g/dL (1.6-3.3); LDL Cholesterol,Calculated 83.8 mg/dL (0.0-131.0); Non-African American GFR(CKD) 115.6 (60.0-200.0); Potassium 4.3 mmol/L (3.5-5.5); Total Bilirubin 0.5 mg/dL (0.3-1.2); Total Protein 5.9 g/dL (6.2-8.2); VLDL Calculation 33.2 mg/dL (5.00-40.00)
[2019-01-28 15:53] LABS: Ferritin 68.3 ng/mL (10.0-291.0)
[2019-01-28 16:01] LABS: Folate, Serum 17.1 ng/mL
== END | disposition home or self-care (01) ==
LOC: LABWHC1 08:31
PROVIDERS: ATTEND Surgery Plastic and Reconstructive Surgery
DX: E88.81 Metabolic syndrome and other insulin resistance (principal); E44.0 Moderate protein-calorie malnutrition; E55.9 Vitamin D deficiency, unspecified; I11.9 Hypertensive heart disease without heart failure; G47.33 Obstructive sleep apnea (adult) (pediatric)
CPT/HCPCS: 36415; 80053; 80061; 82306; 82607; 82728; 82746; 83036; 83540; 83550; 84425; 84443; 85027; 93005

== ENCOUNTER → 2019-02-03 | Outpatient (CLI) | payer BC ==
[2019-02-03 15:50] VITALS: BP 132/85; PULSE 91; RESP 16; TEMP 97.8; BMI 28.6
--- NOTE | 2019-02-03 16:19 | P.PN ---
Subjective Progress Note Date: 02/03/19 DATE OF SERVICE: 02/03/2019 CHIEF COMPLAINT: Status post gastric bypass HISTORY OF PRESENT ILLNESS: John House is a 38-year-old female status post gastric bypass and cholecystectomy, 07/27/2018. She is 6 months out. She denies any hypoglycemic episodes or loss of consciousness. Her blood sugar glucose are 110s. No reports of belly cramps or abdominal pain. She denies dysphagia. Her protein intake is over 60 g daily. She comes in with new problems for change in bowel habits especially with a family history of colon cancer. She is also looking into colonoscopy. Her highest weight is 231 pounds. At height of 5 feet 5 inches, her ideal body weight is 149 pounds. She comes in 172 pounds from 174 pounds, 2 months ago. She has lost 2 pounds in 2 months. Her body mass index highest was 38.5 down to 28.6. Her total lifetime weight loss is 59 pounds. Percent excess weight loss is 72%. PAST MEDICAL HISTORY: 1. Morbid obesity due to excess calories 2. Body mass index of 38.5 3. Osteoarthritis of the knees. 4. Osteoarthritis of the lower back. 5. Hypertensive heart disease. 6. Hyperlipidemia 7. Anxiety disorder 8. Depressive disorder 9. Diabetes type 2, poorly controlled. PAST SURGICAL HISTORY: 1. Hysterectomy 2. Status post gastric bypass and cholecystectomy, 07/27/2018 HOME MEDICATIONS: ALLERGIES: Home Medications Medication Instructions Recorded Confirmed Type ALPRAZolam [Xanax] 0.25 mg PO TID 12/03/17 12/03/17 History Citalopram Hydrobromide 20 mg PO DAILY 12/03/17 12/03/17 History [Citalopram HBr] Ezetimibe [Zetia] 10 mg PO DAILY 12/03/17 12/03/17 History Fenofibrate Nanocrystallized 1 tab PO DAILY 12/03/17 12/03/17 History [Tricor] Lisinopril-Hctz 20-25 mg 1 tab PO DAILY 12/03/17 12/03/17 History [Zestoretic 20-25] Multivitamins, Thera [Multivitamin 1 tab PO DAILY 12/03/17 12/03/17 History (formulary)] [place]-3 Fatty Acids/Fish Oil [Fish 1,000 mg PO BID 12/03/17 12/03/17 History Oil 1,000 mg Softgel] glyBURIDE [Diabeta] 2.5 mg PO DAILY 12/03/17 12/03/17 History metFORMIN HCL [Glucophage] 500 mg PO BID 12/03/17 12/03/17 History Allergies Allergy/AdvReac Type Severity Reaction Status Date / Time No Known Allergies Allergy Verified 11/27/17 12:56 SOCIAL HISTORY: Past tobacco use. FAMILY HISTORY: No family history of ulcerative colitis disease or Crohn's disease. Family history of morbid obesity. No lupus in the family. No reports of stomach or esophageal cancer. Has family history of colon cancer. REVIEW OF ORGAN SYSTEMS: CONSTITUTIONAL: At height of 5 feet 5 inches, her ideal body weight is 149 pounds. Highest weight 231 pounds. Her body mass index highest was 38.5. HEENT: Denies any active troubles with vision or hearing. No troubles with swallowing. ENDOCRINE: Has diabetes now discontinued from all medications. No hypothyroidism. CARDIOVASCULAR: No reports of palpitations or heart attacks or chest pain. RESPIRATORY: Has daytime somnolence now resolved. Has asthma. GI: Denies any bright red blood per rectum. No diarrhea. Has constipation. MUSCULOSKELETAL: Has lower back pain and joint pain. Has osteoarthritis of the knees. NEURO: No headaches. No seizure disorders. PSYCH: Has depression. No suicidal ideation. RHEUMATOLOGIC: No lupus. No rheumatoid arthritis. HEMATOLOGIC: Denies any abnormal bleeding or bruising. No personal history of DVTs. SKIN: No rash. No skin cancer. PHYSICAL EXAM: VITAL SIGNS: Height 5 foot 5 inches, weight 172 pounds. BMI 28.6 Vital Signs Temp 97.8 F 02/03/19 15:47 Pulse 91 02/03/19 15:47 Resp 16 02/03/19 15:47 BP 132/85 02/03/19 15:47 Pulse Ox GENERAL: Well-developed in no acute distress. HEENT: No scleral icterus. Extraocular movements grossly intact. Hears conversational speech. No nasal drainage. NECK: Supple without lymphadenopathy. CHEST: Nonlabored respirations with equal bilateral excursions. CARDIOVASCULAR: Regular rate and regular rhythm. Distal 2+ pulses. ABDOMEN: Obese, soft, nondistended. No hernia. MUSCULOSKELETAL: No clubbing, cyanosis. NEURO: No focal or lateralizing signs. Cranial nerves 2 through 12 grossly within normal limits. PSYCH: Appropriate affect. Alert and oriented to person, place and time. SKIN: Good skin turgor. Well perfused. ASSESSMENT: 1. Morbid obesity due to excess calories 2. Body mass index of 38.5 to 29.0 3. Osteoarthritis of the knees. 4. Osteoarthritis of the lower back. 5. Hypertensive heart disease. 6. Hyperlipidemia 7. Anxiety disorder 8. Depressive disorder 9. Diabetes type 2, uncontrolled, now improved 10. Vitamin D deficiency 11. Hypertriglyceridemia with risk for pancreatitis 12. Elevated liver function tests 13. Family history of liver disease 14. History of tobacco abuse 15. Hepatomegaly 16. Status post gastric bypass 17. Status post cholecystectomy 18. Family history of colorectal cancer 19. Change in bowel habits. PLAN: 1. Recommend bariatric labs at 6 months post op 2. Recommend colonoscopy for family history colon cancer and change in bowel habits 3. Continue Omeprazole for history of ulcers. 4. Continue protein intake over 60+ grams daily. Objective - Vital Signs Vital signs: Vital Signs Temp 97.8 F 02/03/19 15:47 Pulse 91 02/03/19 15:47 Resp 16 02/03/19 15:47 BP 132/85 02/03/19 15:47 Pulse Ox Intake & Output 02/02/19 02/03/19 02/03/19 18:59 06:59 18:59 Weight 78.018 kg
== END | disposition home or self-care (01) ==
LOC: BARWHC3 14:58
PROVIDERS: ATTEND Surgery Plastic and Reconstructive Surgery
DX: Z48.815 Encounter for surgical aftercare following surgery on the digestive system (principal); E66.01 Morbid (severe) obesity due to excess calories; M17.0 Bilateral primary osteoarthritis of knee; E78.5 Hyperlipidemia, unspecified; F41.8 Other specified anxiety disorders; E55.9 Vitamin D deficiency, unspecified; E11.65 Type 2 diabetes mellitus with hyperglycemia; R16.0 Hepatomegaly, not elsewhere classified; R19.4 Change in bowel habit; R79.89 Other specified abnormal findings of blood chemistry; Z68.29 Body mass index [BMI] 29.0-29.9, adult; Z83.79 Family history of other diseases of the digestive system; Z87.891 Personal history of nicotine dependence; Z98.84 Bariatric surgery status; Z90.49 Acquired absence of other specified parts of digestive tract; Z80.0 Family history of malignant neoplasm of digestive organs; Z83.49 Family history of other endocrine, nutritional and metabolic diseases; Z79.84 Long term (current) use of oral hypoglycemic drugs; Z79.899 Other long term (current) drug therapy
CPT/HCPCS: 97803; 99211

== ENCOUNTER 2019-03-08 14:02 | Day surgery (SDC) | payer BC ==
[2019-03-04 15:37] VITALS: BMI 27.4
--- NOTE | 2019-03-07 21:10 | P.GSHP ---
History of Present Illness H&P Date: 03/08/19 CHIEF COMPLAINT: Colon screen HISTORY OF PRESENT ILLNESS: The patient is a 38-year-old female who presents for colon screen. Lower endoscopy was offered for further evaluation and management. PAST MEDICAL HISTORY: Please see list. PAST SURGICAL HISTORY: Please see list. MEDICATIONS: Please see list. ALLERGIES: Please see list. SOCIAL HISTORY: No illicit drug use FAMILY HISTORY: No reports of Crohn disease or ulcerative colitis. REVIEW OF ORGAN SYSTEMS: CONSTITUTIONAL: No reports of fevers or chills. PHYSICAL EXAM: VITAL SIGNS: Stable GENERAL: Well-developed pleasant in no acute distress. HEENT: No scleral icterus. Extraocular movements grossly intact. Moist buccal mucosa. NECK: Supple without lymphadenopathy. CHEST: Unlabored respirations. Equal bilateral excursions. CARDIOVASCULAR: Regular rate and rhythm. Distal 2+ pulses. ABDOMEN: Soft, nontender, nondistended. MUSCULOSKELETAL: No clubbing, cyanosis, or edema. ASSESSMENT: 1. Colon screen. PLAN: 1. Recommend proceeding with a lower endoscopy Past Medical History Past Medical History: GERD/Reflux, Hyperlipidemia, Hypertension, Osteoarthritis (OA) Additional Past Medical History / Comment(s): Hx LIVER ENZYMES ELEVATED, RETURNED TO [facility]. DYSPAGIA, hx diabetes none since gastric bypass History of Any Multi-Drug Resistant Organisms: None Reported Past Surgical History: Bariatric Surgery, Cholecystectomy, Hysterectomy Additional Past Surgical History / Comment(s): Gastric bypass 07-27-18, lap choly 07-27-18. EGD. Past Anesthesia/Blood Transfusion Reactions: No Reported Reaction Past Psychological History: Anxiety Smoking Status: Former smoker Past Alcohol Use History: None Reported Additional Past Alcohol Use History / Comment(s): Smoked 17 years, 1 - 1 /2 PPD, quit 12/2017. Past Drug Use History: None Reported - Past Family History Mother Family Medical History: Cancer Father Family Medical History: Cancer Medications and Allergies Home Medications Medication Instructions Recorded Confirmed Type Citalopram Hydrobromide 20 mg PO HS 12/03/17 03/04/19 History [Citalopram HBr] Omeprazole 40 mg PO QAM 07/23/18 03/04/19 History ALPRAZolam [Xanax] 0.25 mg PO BID PRN 08/05/18 03/04/19 History Cholecalciferol (Vitamin D3) 10,000 unit PO DAILY 08/31/18 03/04/19 History [Vitamin D3] Bariatric Mvi 1 tab PO DAILY 11/19/18 03/04/19 History Iron (Unknown Dose) 1 tab PO DAILY 11/19/18 03/04/19 History Calcium Carbonate/Vitamin D3 1 tab PO DAILY 03/04/19 03/04/19 History [Caltrate 600 Plus D3 Tablet] Cyanocobalamin (Vitamin B-12) 1,000 mcg PO DAILY 03/04/19 03/04/19 History [Vitamin B-12] Spironolactone 25 mg PO BID 03/04/19 03/04/19 History Sucralfate [Carafate] 1 gm PO BID 03/04/19 03/04/19 History Allergies Allergy/AdvReac Type Severity Reaction Status Date / Time tuberculin, purified protein Allergy Rash/Hives Verified 03/04/19 15:30 deriva
[2019-03-08 14:17] VITALS: TEMP 97.3
[2019-03-08] MEDS ORDERED: PROPOFOL 10 MG/ML 20 ML VIAL IV ONE (16:39)
--- NOTE | 2019-03-08 17:25 | P.PCN ---
Date of Procedure: 03/08/19 Description of Procedure: PREOPERATIVE DIAGNOSIS: History of colitis Family history malignant colon polyps POSTOPERATIVE DIAGNOSIS: Family history malignant colon polyps Tubular adenoma hepatic flexure Tubular adenoma transverse colon Tubular adenoma descending colon Tubal adenoma sigmoid colon OPERATION: Colonoscopy to the ileocecal valve and appendiceal orifice. Colonoscopy with multiple hot snare polypectomies Colonoscopy with cold forceps biopsies SURGEON: Helen Meyers MD. ANESTHESIA: MAC. INDICATIONS: The patient is an 38-year-old male who presents family history of malignant colon polyps and personal history of colitis. She presents for diagnostic assessment. Benefits and risks were described and informed consent was obtained. DESCRIPTION OF PROCEDURE: The patient had undergone Suprep. She had been brought into the operating room and laid in the left lateral decubitus position. After adequate intravenous sedation, the rectum was examined with 2% lidocaine jelly. The prostate was unremarkable. No external hemorrhoids were encountered. The rectal tone was within normal limits. No lesions were palpated in the rectal vault. An Olympus colonoscope was advanced until the ileocecal valve and appendiceal orifice were clearly viewed. The prep was fair. No sigmoid diverticulosis was encountered. Multiple colonic polyps were found and snare polypectomy. No evidence of focal colitis was found. Retroflexion of the scope demonstrated grade 1 internal hemorrhoids without active bleeding or inflammation. The colon was desufflated. The patient had tolerated the procedure well. Withdrawal time was over 6 minutes. FINDINGS: Aronchick preparation quality scale 1 (1-5) Internal hemorrhoids, grade 1 No external hemorrhoids No arteriovenous malformations. No sigmoid diverticulosis Removal of 10 polyps: - Snare polypectomy 20 cm from the anal verge, 8 mm tubulovillous adenoma polyp, sigmoid colon - Snare polypectomy 25 cm from the anal verge x 3, 6 to 7 mm flat villous adenoma polyp, sigmoid colon - Cold forceps biopsy at 30 cm from the anal verge, 4 mm polyp, descending colon - Cold forceps biopsy at 36 cm from the anal verge, 5 mm polyp, descending colon - Cold forceps biopsy at 40 cm from the anal verge, 4 mm polyp, descending colon - Cold forceps biopsy at hepatic flexure, 3 mm polyp. - Cold forceps biopsy at mid transverse colon, 5 mm polyp. - Cold forceps biopsy at proximal transverse colon, 4 mm polyp. No focal colitis. RECOMMENDATIONS: Given severity of tubular adenomas, recommend repeat colonoscopy 1 year. Plan - Discharge Summary Discharge Rx Participant: No New Discharge Prescriptions: No Action Citalopram Hydrobromide [Citalopram HBr] 20 mg PO HS Omeprazole 40 mg PO QAM ALPRAZolam [Xanax] 0.25 mg PO BID PRN PRN Reason: Anxiety Cholecalciferol (Vitamin D3) [Vitamin D3] 10,000 unit PO DAILY Iron (Unknown Dose) 1 tab PO DAILY Bariatric Mvi 1 tab PO DAILY Spironolactone 25 mg PO BID Cyanocobalamin (Vitamin B-12) [Vitamin B-12] 1,000 mcg PO DAILY Calcium Carbonate/Vitamin D3 [Caltrate 600 Plus D3 Tablet] 1 tab PO DAILY Sucralfate [Carafate] 1 gm PO BID Discharge Medication List Citalopram Hydrobromide [Citalopram HBr] 20 mg PO HS 12/03/17 [History] Omeprazole 40 mg PO QAM 07/23/18 [History] ALPRAZolam [Xanax] 0.25 mg PO BID PRN 08/05/18 [History] Cholecalciferol (Vitamin D3) [Vitamin D3] 10,000 unit PO DAILY 08/31/18 [History] Bariatric Mvi 1 tab PO DAILY 11/19/18 [History] Iron (Unknown Dose) 1 tab PO DAILY 11/19/18 [History] Calcium Carbonate/Vitamin D3 [Caltrate 600 Plus D3 Tablet] 1 tab PO DAILY 03/04/19 [History] Cyanocobalamin (Vitamin B-12) [Vitamin B-12] 1,000 mcg PO DAILY 03/04/19 [History] Spironolactone 25 mg PO BID 03/04/19 [History] Sucralfate [Carafate] 1 gm PO BID 03/04/19 [History] [facility] up [facility]ment[facility] [place] [facility] Patient Instructions/Handouts: Colorectal Polyps (GEN) Activity/Diet/Wound Care/Special Instructions: Repeat colonoscopy one year, 2020 Discharge Disposition: HOME SELF-CARE
[2019-03-08 17:29] VITALS: RESP 16
[2019-03-08 17:43] VITALS: BP 113/80; PULSE 56
== END 2019-03-08 17:57 | disposition home or self-care (01) ==
LOC: ORWHC2ENDO 14:02
PROVIDERS: ATTEND Surgery Plastic and Reconstructive Surgery
DX: D12.3 Benign neoplasm of transverse colon (principal); D12.4 Benign neoplasm of descending colon; D12.5 Benign neoplasm of sigmoid colon; K64.0 First degree hemorrhoids; K21.9 Gastro-esophageal reflux disease without esophagitis; E78.5 Hyperlipidemia, unspecified; I10 Essential (primary) hypertension; M19.90 Unspecified osteoarthritis, unspecified site; F41.9 Anxiety disorder, unspecified; Z98.84 Bariatric surgery status; Z90.49 Acquired absence of other specified parts of digestive tract; Z90.710 Acquired absence of both cervix and uterus; Z80.0 Family history of malignant neoplasm of digestive organs; Z87.891 Personal history of nicotine dependence; Z79.899 Other long term (current) drug therapy; Z88.7 Allergy status to serum and vaccine
CPT/HCPCS: 88305; 45380; 45385; J2704

== ENCOUNTER → 2019-03-31 | Outpatient (CLI) | payer BC ==
[2019-03-31 14:23] VITALS: BP 125/73; PULSE 63; RESP 16; TEMP 98; BMI 29.4
--- NOTE | 2019-03-31 15:11 | P.PN ---
Subjective Progress Note Date: 03/31/19 DATE OF SERVICE: 03/31/2019 CHIEF COMPLAINT: Colon polyps HISTORY OF PRESENT ILLNESS: John House is a 38-year-old female status post gastric bypass and cholecystectomy, 07/27/2018. She is 8 months out. She has family history of colon cancer. She has completed a colonoscopy. No reports of blood in stools. She is doing well. Her highest weight is 231 pounds. At height of 5 feet 5 inches, her ideal body weight is 149 pounds. She comes in 177 pounds from 172 pounds, 2 months ago. She has gained 5 pounds in 2 months. Her body mass index highest was 38.5 down to 29.5. Her total lifetime weight loss is 54 pounds. Percent excess weight loss is 66 %. PHYSICAL EXAM: VITAL SIGNS: Height 5 foot 5 inches, weight 177 pounds. BMI 29.5 Vital Signs Temp 98 F 03/31/19 14:20 Pulse 63 03/31/19 14:20 Resp 16 03/31/19 14:20 BP 125/73 03/31/19 14:20 Pulse Ox GENERAL: Well-developed in no acute distress. HEENT: No scleral icterus. Extraocular movements grossly intact. Hears conversational speech. No nasal drainage. NECK: Supple without lymphadenopathy. CHEST: Nonlabored respirations with equal bilateral excursions. CARDIOVASCULAR: Regular rate and regular rhythm. Distal 2+ pulses. ABDOMEN: Obese, soft, nondistended. No hernia. MUSCULOSKELETAL: No clubbing, cyanosis. NEURO: No focal or lateralizing signs. Cranial nerves 2 through 12 grossly within normal limits. PSYCH: Appropriate affect. Alert and oriented to person, place and time. SKIN: Good skin turgor. Well perfused. EGD FINDINGS: Aronchick preparation quality scale 1 (1-5) Internal hemorrhoids, grade 1 No external hemorrhoids No arteriovenous malformations. No sigmoid diverticulosis Removal of 10 polyps: - Snare polypectomy 20 cm from the anal verge, 8 mm tubulovillous adenoma polyp, sigmoid colon - Snare polypectomy 25 cm from the anal verge x 3, 6 to 7 mm flat villous adenoma polyp, sigmoid colon - Cold forceps biopsy at 30 cm from the anal verge, 4 mm polyp, descending colon - Cold forceps biopsy at 36 cm from the anal verge, 5 mm polyp, descending colon - Cold forceps biopsy at 40 cm from the anal verge, 4 mm polyp, descending colon - Cold forceps biopsy at hepatic flexure, 3 mm polyp. - Cold forceps biopsy at mid transverse colon, 5 mm polyp. - Cold forceps biopsy at proximal transverse colon, 4 mm polyp. No focal colitis. Final Pathologic Diagnosis A. HEPATIC FLEXURE POLYP, BIOPSY: Tubular adenoma. B. MID TRANSVERSE COLON POLYP, BIOPSY: Tubular adenoma. C. DISTAL TRANSVERSE COLON POLYP, BIOPSY: Hyperplastic polyp. D. COLON POLYP AT 40 CM, BIOPSIES: Tubular adenoma. E. COLON POLYP AT 36 CM, BIOPSIES: Tubular adenoma. F. POLYP AT 25 CM, BIOPSIES: Tubulovillous adenoma. ASSESSMENT: 1. Morbid obesity due to excess calories 2. Body mass index of 38.5 to 29.5 3. Osteoarthritis of the knees. 4. Osteoarthritis of the lower back. 5. Hypertensive heart disease. 6. Hyperlipidemia 7. Anxiety disorder 8. Depressive disorder 9. Diabetes type 2, uncontrolled, now improved 10. Vitamin D deficiency 11. Hypertriglyceridemia with risk for pancreatitis 12. Elevated liver function tests 13. Family history of liver disease 14. History of tobacco abuse 15. Hepatomegaly 16. Status post gastric bypass 17. Status post cholecystectomy 18. Family history of colorectal cancer 19. Change in bowel habits. PLAN: 1. Repeat colonoscopy in 1 year. Objective - Vital Signs Vital signs: Vital Signs Temp 98 F 03/31/19 14:20 Pulse 63 03/31/19 14:20 Resp 16 03/31/19 14:20 BP 125/73 03/31/19 14:20 Pulse Ox Intake & Output 03/30/19 03/31/19 03/31/19 18:59 06:59 18:59 Weight 80.286 kg
== END | disposition home or self-care (01) ==
LOC: BARWHC3 13:45
PROVIDERS: ATTEND Surgery Plastic and Reconstructive Surgery
DX: E66.01 Morbid (severe) obesity due to excess calories (principal); Z68.29 Body mass index [BMI] 29.0-29.9, adult; M17.0 Bilateral primary osteoarthritis of knee; M47.816 Spondylosis without myelopathy or radiculopathy, lumbar region; I11.9 Hypertensive heart disease without heart failure; E78.5 Hyperlipidemia, unspecified; F41.9 Anxiety disorder, unspecified; F32.9 Major depressive disorder, single episode, unspecified; E55.9 Vitamin D deficiency, unspecified; E78.1 Pure hyperglyceridemia; K85.90 Acute pancreatitis without necrosis or infection, unspecified; R79.89 Other specified abnormal findings of blood chemistry; R19.4 Change in bowel habit; R16.0 Hepatomegaly, not elsewhere classified; Z87.891 Personal history of nicotine dependence; Z90.49 Acquired absence of other specified parts of digestive tract; Z80.0 Family history of malignant neoplasm of digestive organs; Z84.1 Family history of disorders of kidney and ureter; Z98.84 Bariatric surgery status
CPT/HCPCS: 99211

== ENCOUNTER → 2019-04-06 | Outpatient (CLI) | payer BC ==
[2019-04-06 15:08] LABS: HCT 41.8 % (34.0-46.0); HGB 14.3 gm/dL (11.4-16.0); MCH 31.7 pg (25.0-35.0); MCHC 34.1 g/dL (31.0-37.0); MCV 92.8 fL (80.0-100.0); Mean Platelet Volume 8.1; Platelet Count 267 k/uL (150-450); RDW 12.1 % (11.5-15.5); WBC 8.7 k/uL (3.8-10.6)
[2019-04-06 15:19] LABS: Partial Thromboplastin Time 25.6 sec (22.0-30.0); Prothrombin Time 10.4 sec (9.0-12.0)
[2019-04-06 18:59] LABS: Ferritin 52.1 ng/mL (10.0-291.0)
[2019-04-06 19:14] LABS: % Iron Saturation 29.22 (12.00-45.00); Albumin 4.4 g/dL (3.80-4.90); Albumin/Globulin Ratio 2.59 (1.60-3.17); Anion Gap 7.1 mmol/L (4.00-12.00); BUN/Creat Ratio 16.67 Ratio (12.00-20.00); Calcium 9.9 mg/dL (8.7-10.3); Carbon Dioxide 26.9 mmol/L (21.6-31.8); Chol/HDL Ratio 4.44; Folate, Serum 10.3 ng/mL; Globulin 1.7 g/dL (1.6-3.3); Non-African American GFR(CKD) 115.6 (60.0-200.0); Potassium 4.3 mmol/L (3.5-5.5); Total Bilirubin 0.2 mg/dL (0.2-1.2); Total Protein 6.1 g/dL (6.2-8.2)
[2019-04-06 19:19] LABS: Magnesium 1.9 mg/dL (1.5-2.4); Phosphorus 4.9 mg/dL (2.4-5.1)
[2019-04-06 21:09] LABS: Hemoglobin A1C 5.3 % (4.0-6.0)
[2019-04-07 13:08] LABS: Zinc, Serum 65 ug/dL (60-130)
[2019-04-08 07:54] LABS: Vitamin A 43 ug/dL (38-106)
[2019-04-09 00:24] LABS: Selenium 229 mcg/L (63-160)
[2019-04-09 08:00] LABS: Vit B1(Thiamine) 81 ug/L (38-122)
--- NOTE | 2019-04-28 14:45 | P.PN ---
Subjective Progress Note Date: 04/28/19 Went over labs. Not diabetic. Increase protein 80 grams for hair loss. Recommend fiber intake 25 grams. Change MVI for Copper low labs. Objective - Labs CBC & Chem 7: 04/06/19 14:49 04/06/19 14:49
== END | disposition home or self-care (01) ==
LOC: LABWHC1 14:18
PROVIDERS: ATTEND Surgery Plastic and Reconstructive Surgery
DX: E66.01 Morbid (severe) obesity due to excess calories (principal); E21.1 Secondary hyperparathyroidism, not elsewhere classified; E89.1 Postprocedural hypoinsulinemia; D50.9 Iron deficiency anemia, unspecified; K90.9 Intestinal malabsorption, unspecified; E55.9 Vitamin D deficiency, unspecified; K76.9 Liver disease, unspecified; N19 Unspecified kidney failure; K50.90 Crohn's disease, unspecified, without complications
CPT/HCPCS: 36415; 80053; 80061; 82306; 82525; 82607; 82728; 82746; 83036; 83540; 83550; 83735; 83970; 84100; 84134; 84255; 84425; 84443; 84590; 84630; 85027; 85610; 85730

== ENCOUNTER → 2019-04-28 | Outpatient (CLI) | payer BC ==
[2019-04-28 13:39] VITALS: BP 113/74; PULSE 60; RESP 16; TEMP 98.2; BMI 29.4
--- NOTE | 2019-05-18 18:44 | P.PN ---
Subjective Progress Note Date: 04/28/19 DATE OF SERVICE: 04/28/2019 CHIEF COMPLAINT: Status post gastric bypass HISTORY OF PRESENT ILLNESS: John House is a 38-year-old female status post gastric bypass and cholecystectomy, 07/27/2018. She is 9 months out. She denies any reflux disease. No reports of nausea or vomiting. Her highest weight is 231 pounds. At height of 5 feet 5 inches, her ideal body weight is 149 pounds. She comes in 177 pounds unchanged in 1 month. Her body mass index highest was 38.5 down to 29.5. Her total lifetime weight loss is 54 pounds. Percent excess weight loss is 66 %. PHYSICAL EXAM: VITAL SIGNS: Height 5 foot 5 inches, weight 177 pounds. BMI 29.5 Vital Signs Temp 98.2 F 04/28/19 13:34 Pulse 60 04/28/19 13:34 Resp 16 04/28/19 13:34 BP 113/74 04/28/19 13:34 Pulse Ox GENERAL: Well-developed in no acute distress. HEENT: No scleral icterus. Extraocular movements grossly intact. Hears conversational speech. No nasal drainage. NECK: Supple without lymphadenopathy. CHEST: Nonlabored respirations with equal bilateral excursions. CARDIOVASCULAR: Regular rate and regular rhythm. Distal 2+ pulses. ABDOMEN: Obese, soft, nondistended. No hernia. MUSCULOSKELETAL: No clubbing, cyanosis. NEURO: No focal or lateralizing signs. Cranial nerves 2 through 12 grossly within normal limits. PSYCH: Appropriate affect. Alert and oriented to person, place and time. SKIN: Good skin turgor. Well perfused. LABS: Selenium is elevated, Zinc is low, Hgb A1c 5.3, normal, Trigylcerides 385! ASSESSMENT: 1. Morbid obesity due to excess calories 2. Body mass index of 38.5 to 29.5 3. Osteoarthritis of the knees. 4. Osteoarthritis of the lower back. 5. Hypertensive heart disease. 6. Hyperlipidemia 7. Anxiety disorder 8. Depressive disorder 9. Diabetes type 2, uncontrolled, now improved 10. Vitamin D deficiency 11. Hypertriglyceridemia with risk for pancreatitis 12. Elevated liver function tests 13. Family history of liver disease 14. History of tobacco abuse 15. Hepatomegaly 16. Status post gastric bypass 17. Status post cholecystectomy 18. Family history of colorectal cancer 19. Colon polyps 20. Selenium excess 21. Hypertrigyceridemia 22. Zinc deficiency PLAN: 1. Zinc supplement 50 mg daily 2. Recommend treatment for hypertriglyceridemia 3. Remove selenium excess Objective - Vital Signs Vital signs: Vital Signs Temp 98.2 F 04/28/19 13:34 Pulse 60 04/28/19 13:34 Resp 16 04/28/19 13:34 BP 113/74 04/28/19 13:34 Pulse Ox
--- NOTE | 2019-05-18 20:11 | P.PN ---
Subjective Progress Note Date: 04/28/19 DATE OF SERVICE: 04/28/2019 CHIEF COMPLAINT: Status post gastric bypass HISTORY OF PRESENT ILLNESS: John House is a 38-year-old female status post gastric bypass and cholecystectomy, 07/27/2018. She is 9 months out. She denies any reflux disease. No reports of nausea or vomiting. She comes in with complaints of hair loss. Her highest weight is 231 pounds. At height of 5 feet 5 inches, her ideal body weight is 149 pounds. She comes in 177 pounds unchanged in 1 month. Her body mass index highest was 38.5 down to 29.5. Her total lifetime weight loss is 54 pounds. Percent excess weight loss is 66 %. PHYSICAL EXAM: VITAL SIGNS: Height 5 foot 5 inches, weight 177 pounds. BMI 29.5 Vital Signs Temp 98.2 F 04/28/19 13:34 Pulse 60 04/28/19 13:34 Resp 16 04/28/19 13:34 BP 113/74 04/28/19 13:34 Pulse Ox GENERAL: Well-developed in no acute distress. HEENT: No scleral icterus. Extraocular movements grossly intact. Hears conversational speech. No nasal drainage. NECK: Supple without lymphadenopathy. CHEST: Nonlabored respirations with equal bilateral excursions. CARDIOVASCULAR: Regular rate and regular rhythm. Distal 2+ pulses. ABDOMEN: Obese, soft, nondistended. No hernia. MUSCULOSKELETAL: No clubbing, cyanosis. NEURO: No focal or lateralizing signs. Cranial nerves 2 through 12 grossly within normal limits. PSYCH: Appropriate affect. Alert and oriented to person, place and time. SKIN: Good skin turgor. Well perfused. LABS: All labs reviewed. Selenium is elevated, Zinc is low, Hgb A1c 5.3, normal, Trigylcerides 385! ASSESSMENT: 1. Morbid obesity due to excess calories 2. Body mass index of 38.5 to 29.5 3. Osteoarthritis of the knees. 4. Osteoarthritis of the lower back. 5. Hypertensive heart disease. 6. Hyperlipidemia 7. Anxiety disorder 8. Depressive disorder 9. Diabetes type 2, uncontrolled, now improved 10. Vitamin D deficiency 11. Hypertriglyceridemia with risk for pancreatitis 12. Elevated liver function tests 13. Family history of liver disease 14. History of tobacco abuse 15. Hepatomegaly 16. Status post gastric bypass 17. Status post cholecystectomy 18. Family history of colorectal cancer 19. Colon polyps 20. Selenium excess 21. Hypertrigyceridemia 22. Zinc deficiency 23. Hair loss PLAN: 1. Zinc supplement 50 mg daily 2. Recommend treatment for hypertriglyceridemia 3. Remove selenium excess 4. From her hemoglobin A1c, she her diabetes is in remission. 5. Increase protein 80 grams for hair loss and avoid Selenium excess. 6. Recommend fiber intake 25 grams. 7. Change multivitamin for increase Copper. 8. Recommend copper supplement. Objective - Vital Signs Vital signs: Vital Signs Temp 98.2 F 04/28/19 13:34 Pulse 60 04/28/19 13:34 Resp 16 04/28/19 13:34 BP 113/74 04/28/19 13:34 Pulse Ox
== END | disposition home or self-care (01) ==
LOC: BARWHC3 13:11
PROVIDERS: ATTEND Surgery Plastic and Reconstructive Surgery
DX: Z48.815 Encounter for surgical aftercare following surgery on the digestive system (principal); E66.01 Morbid (severe) obesity due to excess calories; M17.0 Bilateral primary osteoarthritis of knee; I11.9 Hypertensive heart disease without heart failure; E78.5 Hyperlipidemia, unspecified; F41.8 Other specified anxiety disorders; E11.9 Type 2 diabetes mellitus without complications; E55.9 Vitamin D deficiency, unspecified; E78.1 Pure hyperglyceridemia; R79.89 Other specified abnormal findings of blood chemistry; R16.0 Hepatomegaly, not elsewhere classified; K63.5 Polyp of colon; E60 Dietary zinc deficiency; L65.9 Nonscarring hair loss, unspecified; Z68.29 Body mass index [BMI] 29.0-29.9, adult; Z90.49 Acquired absence of other specified parts of digestive tract; Z98.84 Bariatric surgery status; Z87.891 Personal history of nicotine dependence; Z83.79 Family history of other diseases of the digestive system; Z80.0 Family history of malignant neoplasm of digestive organs; Z79.899 Other long term (current) drug therapy
CPT/HCPCS: 97803; 99211

== ENCOUNTER → 2019-07-28 | Outpatient (CLI) | payer BC ==
[2019-07-28 13:06] LABS: HCT 42.8 % (34.0-46.0); HGB 13.9 gm/dL (11.4-16.0); MCH 31.7 pg (25.0-35.0); MCHC 32.4 g/dL (31.0-37.0); MCV 97.8 fL (80.0-100.0); Mean Platelet Volume 7.9; Platelet Count 264 k/uL (150-450); RBC 4.38 m/uL (3.80-5.40); RDW 12.6 % (11.5-15.5); WBC 10.4 k/uL (3.8-10.6)
[2019-07-28 13:11] LABS: INR 1.1 (<1.2); Partial Thromboplastin Time 26.2 sec (22.0-30.0); Prothrombin Time 10.9 sec (9.0-12.0)
[2019-07-28 13:25] VITALS: BP 130/76; PULSE 67; RESP 16; TEMP 98.7; BMI 29.6
--- NOTE | 2019-07-28 13:38 | P.PN ---
Subjective Progress Note Date: 07/28/19 DATE OF SERVICE: 07/28/2019 CHIEF COMPLAINT: Status post gastric bypass HISTORY OF PRESENT ILLNESS: John House is a 38-year-old female status post gastric bypass and cholecystectomy, 07/27/2018. She is 1 year out. Prior to surgery, she had comorbidities including hypertriglyceridemia, hypercho lesterolemia, uncontrolled diabetes, fatty liver disease. Her blood sugars are well controlled. She is no longer taking any medications for diabetes. She is doing well. Her hair is growing back. She denies any belly pain. She randomly checks her blood sugars and are under 100. She reports occasional heartburn. She denies dysphagia. Her hair is full. Her highest weight is 232 pounds, BMI 38.7. At height of 5 feet 5 inches, her ideal body weight is 149 pounds. She comes in 178 pounds from 177 pounds 3 months ago. Her body mass index highest was 38.7 down to 29.6. Her total lifetime weight loss is 54 pounds. Percent excess weight loss is 66 %. PHYSICAL EXAM: VITAL SIGNS: Height 5 foot 5 inches, weight 178 pounds. BMI 29.6 Vital Signs Temp 98.7 F 07/28/19 13:23 Pulse 67 07/28/19 13:23 Resp 16 07/28/19 13:23 BP 130/76 07/28/19 13:23 Pulse Ox GENERAL: Well-developed in no acute distress. HEENT: No scleral icterus. Extraocular movements grossly intact. Hears conversational speech. No nasal drainage. NECK: Supple without lymphadenopathy. CHEST: Nonlabored respirations with equal bilateral excursions. CARDIOVASCULAR: Regular rate and regular rhythm. Distal 2+ pulses. ABDOMEN: Obese, soft, nondistended. No hernia. MUSCULOSKELETAL: No clubbing, cyanosis. NEURO: No focal or lateralizing signs. Cranial nerves 2 through 12 grossly within normal limits. PSYCH: Appropriate affect. Alert and oriented to person, place and time. SKIN: Good skin turgor. Well perfused. LABS: Previous blood work reviewed with elevated triglycerides level over 300. Hemoglobin A1c was 5.3% ASSESSMENT: 1. Morbid obesity due to excess calories 2. Body mass index of 38.5 to 29.6 3. Osteoarthritis of the knees. 4. Osteoarthritis of the lower back. 5. Hypertensive heart disease. 6. Hyperlipidemia 7. Anxiety disorder 8. Depressive disorder 9. Diabetes type 2, uncontrolled, now improved 10. Vitamin D deficiency 11. Hypertriglyceridemia with risk for pancreatitis 12. Elevated liver function tests 13. Family history of liver disease 14. History of tobacco abuse 15. Hepatomegaly 16. Status post gastric bypass 17. Status post cholecystectomy 18. Family history of colorectal cancer 19. Colon polyps 20. Selenium excess 21. Hypertrigyceridemia 22. Zinc deficiency PLAN: 1. She is 1 year out. Recommend full bariatric metabolic panel. 2. Recommend continue omeprazole for symptoms of reflux. Laboratory Last Values WBC 10.4 k/uL (3.8-10.6) 07/28/19 12:35 RBC 4.38 m/uL (3.80-5.40) 07/28/19 12:35 Hgb 13.9 gm/dL (11.4-16.0) 07/28/19 12:35 Hct 42.8 % (34.0-46.0) 07/28/19 12:35 MCV 97.8 fL (80.0-100.0) 07/28/19 12:35 MCH 31.7 pg (25.0-35.0) 07/28/19 12:35 MCHC 32.4 g/dL (31.0-37.0) 07/28/19 12:35 RDW 12.6 % (11.5-15.5) 07/28/19 12:35 Plt Count 264 k/uL (150-450) 07/28/19 12:35 PT 10.9 sec (9.0-12.0) 07/28/19 12:35 INR 1.1 (<1.2) 07/28/19 12:35 APTT 26.2 sec (22.0-30.0) 07/28/19 12:35 Sodium 142 mmol/L (135-145) 07/28/19 12:35 Potassium 4.6 mmol/L (3.5-5.5) 07/28/19 12:35 Chloride 110 mmol/L (96-109) H 07/28/19 12:35 Carbon Dioxide 28.4 mmol/L (21.6-31.8) 07/28/19 12:35 Anion Gap 3.60 mmol/L (4.00-12.00) L 07/28/19 12:35 BUN 8.0 mg/dL (9.0-27.0) L 07/28/19 12:35 Creatinine 0.6 mg/dL (0.6-1.5) 07/28/19 12:35 Est GFR (CKD-EPI)AfAm 133.1 (60.0-200.0) 07/28/19 12:35 Est GFR (CKD-EPI)NonAf 114.8 (60.0-200.0) 07/28/19 12:35 BUN/Creatinine Ratio 13.33 Ratio (12.00-20.00) 07/28/19 12:35 Glucose 90 mg/dL (70-110) 07/28/19 12:[address] Glu mg/dL 103 07/28/19 12:35 Hemoglobin A1c 5.2 % (4.0-6.0) 07/28/19 12:35 Calcium 9.6 mg/dL (8.7-10.3) 07/28/19 12:35 Phosphorus 4.5 mg/dL (2.4-5.1) 07/28/19 12:35 Magnesium 2.0 mg/dL (1.5-2.4) 07/28/19 12:35 Iron 89 ug/dL (50-170) 07/28/19 12:35 TIBC 344 ug/dL (228-460) 07/28/19 12:35 % Saturation 25.87 (12.00-45.00) 07/28/19 12:35 Ferritin 28.4 ng/mL (10.0-291.0) 07/28/19 12:35 Total Bilirubin 0.4 mg/dL (0.3-1.2) 07/28/19 12:35 AST 27 U/L (13-35) 07/28/19 12:35 ALT 25 U/L (8-44) 07/28/19 12:35 Alkaline Phosphatase 98 U/L (41-126) 07/28/19 12:35 Total Protein 6.3 g/dL (6.2-8.2) 07/28/19 12:35 Albumin 4.40 g/dL (3.80-4.90) 07/28/19 12:35 Globulin 1.9 g/dL (1.6-3.3) 07/28/19 12:35 Albumin/Globulin Ratio 2.32 g/dL (1.60-3.17) 07/28/19 12:35 Prealbumin 23.0 mg/dL (18.0-42.0) 07/28/19 12:35 Triglycerides 155.0 mg/dL (0.0-149.0) H 07/28/19 12:35 Cholesterol 159 mg/dL (0-200) 07/28/19 12:35 LDL Cholesterol, Calc 91.0 mg/dL (0.0-131.0) 07/28/19 12:35 VLDL Cholesterol, Calc 31.00 mg/dL (5.00-40.00) 07/28/19 12:35 HDL Cholesterol 37.0 mg/dL (40.0-60.0) L 07/28/19 12:35 Cholesterol/HDL Ratio 4.30 07/28/19 12:35 Vitamin A 40 ug/dL (38-106) 07/28/19 12:35 Vitamin B1 75 ug/L (38-122) 07/28/19 12:35 Vitamin B12 609.0 pg/mL (200.0-944.0) 07/28/19 12:35 Vitamin D 25-Hydroxy 51.7 ng/mL (30.0-100.0) 07/28/19 12:35 Folate 17.9 ng/mL 07/28/19 12:35 TSH 0.300 uIU/mL (0.350-5.500) L 07/28/19 12:35 PTH Intact 33.3 pg/mL (14.0-72.0) 07/28/19 12:35 Copper 1008 ug/L (810-1990) 07/28/19 12:35 Selenium 135 mcg/L (63-160) 07/28/19 12:35 Zinc 85 ug/dL (60-130) 07/28/19 12:35 Objective - Vital Signs Vital signs: Vital Signs Temp 98.7 F 07/28/19 13:23 Pulse 67 07/28/19 13:23 Resp 16 07/28/19 13:23 BP 130/76 07/28/19 13:23 Pulse Ox Intake & Output 07/27/19 07/28/19 07/28/19 18:59 06:59 18:59 Weight 80.739 kg - Labs CBC & Chem 7: 07/28/19 12:35 07/28/19 12:35
[2019-07-28 20:23] LABS: Hemoglobin A1C 5.2 % (4.0-6.0)
[2019-07-28 22:44] LABS: % Iron Saturation 25.87 (12.00-45.00); African American GFR (CKD) 133.1 (60.0-200.0); Albumin 4.4 g/dL (3.80-4.90); Albumin/Globulin Ratio 2.32 (1.60-3.17); Anion Gap 3.6 mmol/L (4.00-12.00); BUN/Creat Ratio 13.33 Ratio (12.00-20.00); Calcium 9.6 mg/dL (8.7-10.3); Carbon Dioxide 28.4 mmol/L (21.6-31.8); Chol/HDL Ratio 4.3; Globulin 1.9 g/dL (1.6-3.3); Non-African American GFR(CKD) 114.8 (60.0-200.0); Phosphorus 4.5 mg/dL (2.4-5.1); Potassium 4.6 mmol/L (3.5-5.5); Total Bilirubin 0.4 mg/dL (0.3-1.2); Total Protein 6.3 g/dL (6.2-8.2)
[2019-07-29 04:37] LABS: Ferritin 28.4 ng/mL (10.0-291.0)
[2019-07-29 04:38] LABS: Folate, Serum 17.9 ng/mL
[2019-07-29 13:38] LABS: Zinc, Serum 85 ug/dL (60-130)
[2019-07-30 06:28] LABS: Vitamin A 40 ug/dL (38-106)
[2019-07-30 06:57] LABS: Vit B1(Thiamine) 75 ug/L (38-122)
[2019-07-31 01:14] LABS: Selenium 135 mcg/L (63-160)
== END | disposition home or self-care (01) ==
LOC: BARWHC3 12:13
PROVIDERS: ATTEND Surgery Plastic and Reconstructive Surgery
DX: E66.01 Morbid (severe) obesity due to excess calories (principal); M17.0 Bilateral primary osteoarthritis of knee; I11.9 Hypertensive heart disease without heart failure; F41.9 Anxiety disorder, unspecified; F32.9 Major depressive disorder, single episode, unspecified; E11.65 Type 2 diabetes mellitus with hyperglycemia; E55.9 Vitamin D deficiency, unspecified; E78.1 Pure hyperglyceridemia; R79.89 Other specified abnormal findings of blood chemistry; Z87.891 Personal history of nicotine dependence; Z83.79 Family history of other diseases of the digestive system; R16.0 Hepatomegaly, not elsewhere classified; Z98.84 Bariatric surgery status; Z90.49 Acquired absence of other specified parts of digestive tract; Z80.0 Family history of malignant neoplasm of digestive organs; K63.5 Polyp of colon; E60 Dietary zinc deficiency
CPT/HCPCS: 80053; 80061; 82306; 82525; 82607; 82728; 82746; 83036; 83540; 83550; 83735; 83970; 84100; 84134; 84255; 84425; 84443; 84590; 84630; 85027; 85610; 85730; 97803; 99211

== ENCOUNTER 2020-04-26 08:34 | Day surgery (SDC) | payer BC ==
[2020-04-21 12:01] VITALS: BMI 27.4
--- NOTE | 2020-04-26 04:14 | P.GSHP ---
History of Present Illness H&P Date: 04/26/20 CHIEF COMPLAINT: Colon screen HISTORY OF PRESENT ILLNESS: The patient is a 39-year-old female who presents for colon screen. Lower endoscopy was offered for further evaluation and management. PAST MEDICAL HISTORY: Please see list. PAST SURGICAL HISTORY: Please see list. MEDICATIONS: Please see list. ALLERGIES: Please see list. SOCIAL HISTORY: No illicit drug use FAMILY HISTORY: No reports of Crohn disease or ulcerative colitis. REVIEW OF ORGAN SYSTEMS: CONSTITUTIONAL: No reports of fevers or chills. PHYSICAL EXAM: VITAL SIGNS: Stable GENERAL: Well-developed pleasant in no acute distress. HEENT: No scleral icterus. Extraocular movements grossly intact. Moist buccal mucosa. NECK: Supple without lymphadenopathy. CHEST: Unlabored respirations. Equal bilateral excursions. CARDIOVASCULAR: Regular rate and rhythm. Distal 2+ pulses. ABDOMEN: Soft, nontender, nondistended. MUSCULOSKELETAL: No clubbing, cyanosis, or edema. ASSESSMENT: 1. Colon screen. PLAN: 1. Recommend proceeding with a lower endoscopy Past Medical History Past Medical History: GERD/Reflux, Hyperlipidemia, Hypertension, Osteoarthritis (OA) Additional Past Medical History / Comment(s): Hx LIVER ENZYMES ELEVATED, RETURNED TO [facility]. DYSPAGIA, hx diabetes none since gastric bypass History of Any Multi-Drug Resistant Organisms: None Reported Past Surgical History: Bariatric Surgery, Cholecystectomy, Hysterectomy Additional Past Surgical History / Comment(s): Gastric bypass 07-27-18, EGD. COLONOSCOPY Past Anesthesia/Blood Transfusion Reactions: No Reported Reaction Smoking Status: Former smoker - Past Family History Mother Family Medical History: Cancer Additional Family Medical History / Comment(s): COLORECTAL CANCER Father Family Medical History: Cancer Medications and Allergies Home Medications Medication Instructions Recorded Confirmed Type Citalopram Hydrobromide 20 mg PO HS 12/03/17 04/21/20 History [Citalopram HBr] Omeprazole 40 mg PO QAM 07/23/18 04/21/20 History ALPRAZolam [Xanax] 0.25 mg PO BID PRN 08/05/18 04/21/20 History Bariatric Mvi 1 tab PO DAILY 11/19/18 04/21/20 History Iron (Unknown Dose) 1 tab PO DAILY 11/19/18 04/21/20 History Cyanocobalamin (Vitamin B-12) 1,000 mcg PO DAILY 03/04/19 04/21/20 History [Vitamin B-12] Allergies Allergy/AdvReac Type Severity Reaction Status Date / Time tuberculin, purified protein Allergy Rash/Hives Verified 04/21/20 11:53 deriva
[~2020-04-26 08:34] MED LIST changes: +LIDOCAINE 1% (10MG/ML) FOR IV START INTRADERMA PRN; -LIDOCAINE 1% 20 ML VIAL (10MG/ML) FOR IV START INTRADERMA PRN
[2020-04-26 09:08] VITALS: TEMP 97.7
[2020-04-26] MEDS ORDERED: PROPOFOL 10 MG/ML 20 ML VIAL IV ONE (09:51)
--- NOTE | 2020-04-26 10:26 | P.PCN ---
Date of Procedure: 04/26/20 Description of Procedure: PREOPERATIVE DIAGNOSIS: Personal history of colon polyps Family history colon cancer POSTOPERATIVE DIAGNOSIS: Personal history of colon polyps Family history colon cancer Colonoscopy screening Tubular adenoma descending colon Tubular adenoma sigmoid colon Rectal adenoma OPERATION: Colonoscopy to the ileocecal valve and appendiceal orifice, cecum Colonoscopy with hot snare polypectomy SURGEON: Helen Meyers MD. ANESTHESIA: MAC. INDICATIONS: The patient is an 39-year-old male who presents family history of malignant colon polyps and personal history of colon polyps. Last colonoscopy less than 5 years. Benefits and risks were described and informed consent was obtained. DESCRIPTION OF PROCEDURE: The patient had undergone Suprep tabs. The patient had been brought into the operating room and laid in the left lateral decubitus position. After adequate intravenous sedation, the rectum was examined with 2% lidocaine jelly. No external hemorrhoids were encountered. The rectal tone was within normal limits. No lesions were palpated in the rectal vault. An Olympus colonoscope was advanced until the cecum, ileocecal valve and appendiceal orifice were clearly viewed. The prep was good. No sigmoid diverticulosis was encountered. Colonic polyps were found and removed. No evidence of focal colitis was found. Retroflexion of the scope demonstrated grade 1 internal hemorrhoids without active bleeding or inflammation. The colon was desufflated. The patient had tolerated the procedure well. Withdrawal time was over 6 minutes. FINDINGS: Aronchick preparation quality scale 2 (1-5) Internal hemorrhoids, grade 1 No external hemorrhoids No arteriovenous malformations. No sigmoid diverticulosis Removal of 3 polyps from the proximal, mid transverse colon and descending colon: - Snare polypectomy 10 cm from the anal verge, 5 mm tubulovillous adenoma polyp, rectum - Snare polypectomy 15 cm from the anal verge, 4 mm flat villous adenoma polyp, sigmoid colon - Snare polypectomy 50 cm from the anal verge, 5 mm flat villous adenoma polyp, descending colon No focal colitis. RECOMMENDATIONS: Given severity of tubular adenomas, recommend repeat colonoscopy 3 years, 2023 Plan - Discharge Summary Discharge Rx Participant: No New Discharge Prescriptions: Continue Citalopram Hydrobromide [Citalopram HBr] 20 mg PO HS Omeprazole 40 mg PO QAM ALPRAZolam [Xanax] 0.25 mg PO BID PRN PRN Reason: Anxiety Iron (Unknown Dose) 1 tab PO DAILY Bariatric Mvi 1 tab PO DAILY Cyanocobalamin (Vitamin B-12) [Vitamin B-12] 1,000 mcg PO DAILY Discharge Medication List Citalopram Hydrobromide [Citalopram HBr] 20 mg PO HS 12/03/17 [History] Omeprazole 40 mg PO QAM 07/23/18 [History] ALPRAZolam [Xanax] 0.25 mg PO BID PRN 08/05/18 [History] Bariatric Mvi 1 tab PO DAILY 11/19/18 [History] Iron (Unknown Dose) 1 tab PO DAILY 11/19/18 [History] Cyanocobalamin (Vitamin B-12) [Vitamin B-12] 1,000 mcg PO DAILY 03/04/19 [History] Follow up Appointment(s)/Referral(s): Helen Meyers MD [STAFF PHYSICIAN] - As Needed Patient Instructions/Handouts: Colorectal Polyps (DC), *Surgery [facility] - (Anesthesia) Endoscopy Discharge Instructions, Colonoscopy (DC) Activity/Diet/Wound Care/Special Instructions: Repeat colonoscopy in 3 years2023 Discharge Disposition: HOME SELF-CARE
[2020-04-26 10:50] VITALS: BP 114/74; PULSE 63; RESP 16
== END 2020-04-26 11:18 | disposition home or self-care (01) ==
LOC: ORWHC2ENDO 08:34
PROVIDERS: ATTEND Surgery Plastic and Reconstructive Surgery
DX: Z12.11 Encounter for screening for malignant neoplasm of colon (principal); D12.4 Benign neoplasm of descending colon; D12.8 Benign neoplasm of rectum; K63.5 Polyp of colon; K64.0 First degree hemorrhoids; Z86.010 Personal history of colon polyps; Z80.0 Family history of malignant neoplasm of digestive organs; K21.9 Gastro-esophageal reflux disease without esophagitis; E78.5 Hyperlipidemia, unspecified; I10 Essential (primary) hypertension; M19.90 Unspecified osteoarthritis, unspecified site; K08.89 Other specified disorders of teeth and supporting structures; F32.9 Major depressive disorder, single episode, unspecified; F41.9 Anxiety disorder, unspecified; Z86.39 Personal history of other endocrine, nutritional and metabolic disease; Z98.84 Bariatric surgery status; Z90.49 Acquired absence of other specified parts of digestive tract; Z90.710 Acquired absence of both cervix and uterus; Z98.890 Other specified postprocedural states; Z87.891 Personal history of nicotine dependence; Z79.899 Other long term (current) drug therapy; Z88.7 Allergy status to serum and vaccine; Z80.9 Family history of malignant neoplasm, unspecified
CPT/HCPCS: 88305; 45385; J2704

== ENCOUNTER 2020-04-30 06:31 | Emergency (ER) | payer BC ==
[2020-04-30 06:40] VITALS: TEMP 97.4
[2020-04-30] MEDS ORDERED: IOPAMIDOL CONTRAST (ORAL USE) VIAL PO PRN (06:50)
[2020-04-30] MEDS ORDERED: MORPHINE SULFATE 4 MG/ML SYRINGE IVP STA (06:51)
[2020-04-30] MEDS ORDERED: ONDANSETRON 4 MG/2 ML VIAL IVP STA (06:51)
--- NOTE | 2020-04-30 06:58 | ED ---
General Adult HPI - General Source: patient, RN notes reviewed Mode of arrival: ambulatory Limitations: no limitations <Jonny Gary - Last Filed: 04/30/20 08:46> <Leydi Renee - Last Filed: 05/02/20 23:19> - General Chief complaint: Abdominal Pain Stated complaint: abd pain Time Seen by Provider: 04/30/20 06:44 - History of Present Illness Initial comments: 39-year-old female with a past medical history of hyperlipidemia, hypertension, GERD, gastric bypass 2019, colonoscopy [address] Meyers presents to the emergency room for chief complaint of abdominal pain. Patient reports she has had this pain for about 12 hours. States this started about 20 minutes after eating a small piece of a sandwich. Patient states that the pain is near her umbilicus and epigastric area. No vomiting. No diarrhea. No fevers. Patient had a normal bowel movement yesterday.Patient has no other complaints at this time including shortness of breath, chest pain, nausea or vomiting, headache, or visual changes. (Jonny Gary) - Related Data Home Medications Medication Instructions Recorded Confirmed Citalopram Hydrobromide 20 mg PO HS 12/03/17 04/26/20 [Citalopram HBr] Omeprazole 40 mg PO QAM 07/23/18 04/26/20 ALPRAZolam [Xanax] 0.25 mg PO BID PRN 08/05/18 04/26/20 Bariatric Mvi 1 tab PO DAILY 11/19/18 04/26/20 Iron (Unknown Dose) 1 tab PO DAILY 11/19/18 04/26/20 Cyanocobalamin (Vitamin B-12) 1,000 mcg PO DAILY 03/04/19 04/26/20 [Vitamin B-12] Allergies Allergy/AdvReac Type Severity Reaction Status Date / Time tuberculin, purified protein Allergy Rash/Hives Verified 04/30/20 06:39 deriva Review of Systems ROS Other: All systems not noted in ROS Statement are negative. <Jonny Gary - Last Filed: 04/30/20 08:46> ROS Other: All systems not noted in ROS Statement are negative. <Leydi Renee - Last Filed: 05/02/20 23:19> ROS Statement: Those systems with pertinent positive or pertinent negative responses have been documented in the HPI. Past Medical History Past Medical History: GERD/Reflux, Hyperlipidemia, Hypertension, Osteoarthritis (OA) Additional Past Medical History / Comment(s): Hx LIVER ENZYMES ELEVATED, RETURNED TO NL. DYSPAGIA, hx diabetes none since gastric bypass History of Any Multi-Drug Resistant Organisms: None Reported Past Surgical History: Bariatric Surgery, Cholecystectomy, Hysterectomy Additional Past Surgical History / Comment(s): Gastric bypass 07-27-18, EGD. COLONOSCOPY Past Anesthesia/Blood Transfusion Reactions: No Reported Reaction Past Psychological History: Anxiety Smoking Status: Current every day smoker Past Alcohol Use History: Occasional Past Drug Use History: None Reported - Past Family History Mother Family Medical History: Cancer Additional Family Medical History / Comment(s): COLORECTAL CANCER Father Family Medical History: Cancer <Jonny Gary P - Last Filed: 04/30/20 08:46> General Exam Limitations: no limitations General appearance: alert, in no apparent distress Head exam: Present: atraumatic, normocephalic, normal inspection Eye exam: Present: normal appearance, PERRL, EOMI. Absent: scleral icterus, conjunctival injection, periorbital swelling ENT exam: Present: normal exam Neck exam: Present: normal inspection, full ROM. Absent: tenderness, meningismus, lymphadenopathy Respiratory exam: Present: normal lung sounds bilaterally. Absent: respiratory distress, wheezes, rales, rhonchi, stridor Cardiovascular Exam: Present: regular rate, normal rhythm, normal heart sounds. Absent: systolic murmur, diastolic murmur, rubs, gallop, clicks GI/Abdominal exam: Present: soft, tenderness (Patient has epigastric and right upper quadrant tenderness on exam. No significant lower abdominal tenderness.), normal bowel sounds. Absent: distended, guarding, rebound, rigid <Jonny Gary P - Last Filed: 04/30/20 08:46> Course Vital Signs 04/30/20 04/30/20 04/30/20 06:36 07:57 08:00 Temperature 97.4 F L Pulse Rate 94 71 Respiratory 20 18 18 Rate Blood Pressure 132/90 126/85 O2 Sat by Pulse 99 99 99 Oximetry 04/30/20 08:59 Temperature 97.4 F L Pulse Rate 68 Respiratory 18 Rate Blood Pressure 123/78 O2 Sat by Pulse 99 Oximetry Medical Decision Making - Lab Data Result diagrams: 04/30/20 07:00 04/30/20 07:00 <Jonny Gary - Last Filed: 04/30/20 08:46> - Lab Data Result diagrams: 04/30/20 07:00 04/30/20 07:00 <Leydi Renee - Last Filed: 05/02/20 23:19> - Medical Decision Making Vitals are stable. HPI and physical exam as documented. Pertinent for mild tenderness of the epigastric and right upper quadrant. No vomiting. CBC CMP unremarkable. Urinalysis unremarkable. History of hysterectomy. CT with contrast and bariatric prep was ordered. Postsurgical changes noted of gastric bypass. However the etiology of patient's abdominal pain is indeterminate by CT. No bowel obstruction, free fluid or free air. No inflammatory changes identified area no abscess. I reevaluated patient, pain much improved, down to a 2. No significant tenderness on repeat abdominal exam. At this time patient will be discharged home however I discussed her to return parameters given her surgical history. She will follow up with Dr. Meyers outpatient as well. (Jonny Gary) I was available for consultation in the emergency department. The history and physical exam were done by the midlevel provider. I was consulted for this patients care. I reviewed the case with the midlevel provider and based on their presentation of the patient, I agree with the assessment, medical decision making and plan of care as documented. Chart was dictated using [employer] dictation software. Attempts were made to correct any dictation errors however some typographical errors may persist. (Leydi Renee) - Lab Data Lab Results 04/30/20 04/30/20 04/30/20 Range/Units 06:48 07:00 07:00 WBC 10.3 (3.8-10.6) k/uL RBC 4.29 (3.80-5.40) m/uL Hgb 14.3 (11.4-16.0) gm/dL Hct 40.8 (34.0-46.0) % MCV 95.2 (80.0-100.0) fL MCH 33.4 (25.0-35.0) pg MCHC 35.0 (31.0-37.0) g/dL RDW 12.2 (11.5-15.5) % Plt Count 253 (150-450) k/uL MPV 7.2 Neutrophils % 61 % Lymphocytes % 30 % Monocytes % 5 % Eosinophils % 3 % Basophils % 1 % Neutrophils # 6.3 (1.3-7.7) k/uL Lymphocytes # 3.1 (1.0-4.8) k/uL Monocytes # 0.5 (0-1.0) k/uL Eosinophils # 0.3 (0-0.7) k/uL Basophils # 0.1 (0-0.2) k/uL Sodium 140 (137-145) mmol/L Potassium 4.2 (3.5-5.1) mmol/L Chloride 107 (98-107) mmol/L Carbon Dioxide 28 (22-30) mmol/L Anion Gap 5 mmol/L BUN 10 (7-17) mg/dL Creatinine 0.57 (0.52-1.04) mg/dL Est GFR (CKD-EPI)AfAm >90 (>60 ml/min/1.73 sqM) Est GFR (CKD-EPI)NonAf >90 (>60 ml/min/1.73 sqM) Glucose 106 H (74-99) mg/dL Plasma Lactic Acid Titus (0.7-2.0) mmol/L Calcium 9.2 (8.4-10.2) mg/dL Total Bilirubin 0.5 (0.2-1.3) mg/dL AST 23 (14-36) U/L ALT 20 (4-34) U/L Alkaline Phosphatase 65 (38-126) U/L Total Protein 6.3 (6.3-8.2) g/dL Albumin 4.0 (3.5-5.0) g/dL Amylase 52 (30-110) U/L Lipase 142 (23-300) U/L Urine Color Yellow Urine Appearance Cloudy H (Clear) Urine pH 8.0 (5.0-8.0) Ur Specific [place] 1.023 (1.001-1.035) Urine Protein 1+ H (Negative) Urine Glucose (UA) Negative (Negative) Urine Ketones Negative (Negative) Urine Blood Negative (Negative) Urine Nitrite Negative (Negative) Urine Bilirubin Negative (Negative) Urine Urobilinogen 6.0 (<2.0) mg/dL Ur Leukocyte Esterase Negative (Negative) Urine RBC 2 (0-5) /hpf Urine WBC 1 (0-5) /hpf Ur Squamous Epith Cells 7 H (0-4) /hpf Urine Mucus Moderate H (None) /hpf 04/30/20 Range/Units 07:00 WBC (3.8-10.6) k/uL RBC (3.80-5.40) m/uL Hgb (11.4-16.0) gm/dL Hct (34.0-46.0) % MCV (80.0-100.0) fL MCH (25.0-35.0) pg MCHC (31.0-37.0) g/dL RDW (11.5-15.5) % Plt Count (150-450) k/uL MPV Neutrophils % % Lymphocytes % % Monocytes % % Eosinophils % % Basophils % % Neutrophils # (1.3-7.7) k/uL Lymphocytes # (1.0-4.8) k/uL Monocytes # (0-1.0) k/uL Eosinophils # (0-0.7) k/uL Basophils # (0-0.2) k/uL Sodium (137-145) mmol/L Potassium (3.5-5.1) mmol/L Chloride (98-107) mmol/L Carbon Dioxide (22-30) mmol/L Anion Gap mmol/L BUN (7-17) mg/dL Creatinine (0.52-1.04) mg/dL Est GFR (CKD-EPI)AfAm (>60 ml/min/1.73 sqM) Est GFR (CKD-EPI)NonAf (>60 ml/min/1.73 sqM) Glucose (74-99) mg/dL Plasma Lactic Acid Titus 1.3 (0.7-2.0) mmol/L Calcium (8.4-10.2) mg/dL Total Bilirubin (0.2-1.3) mg/dL AST (14-36) U/L ALT (4-34) U/L Alkaline Phosphatase (38-126) U/L Total Protein (6.3-8.2) g/dL Albumin (3.5-5.0) g/dL Amylase (30-110) U/L Lipase (23-300) U/L Urine Color Urine Appearance (Clear) Urine pH (5.0-8.0) Ur Specific [place] (1.001-1.035) Urine Protein (Negative) Urine Glucose (UA) (Negative) Urine Ketones (Negative) Urine Blood (Negative) Urine Nitrite (Negative) Urine Bilirubin (Negative) Urine Urobilinogen (<2.0) mg/dL Ur Leukocyte Esterase (Negative) Urine RBC (0-5) /hpf Urine WBC (0-5) /hpf Ur Squamous Epith Cells (0-4) /hpf Urine Mucus (None) /hpf Disposition Is patient prescribed a controlled substance at d/c from ED?: No Time of Disposition: 08:43 <Jonny Gary - Last Filed: 04/30/20 08:46> <Leydi Renee - Last Filed: 05/02/20 23:19> Clinical Impression: Abdominal pain Disposition: HOME SELF-CARE Condition: Good Instructions (If sedation given, give patient instructions): Abdominal Pain ( ED) Additional Instructions: Please monitor symptoms. If symptoms are worsening such as pain is worse, you are vomiting or developing fevers return to the emergency room. Otherwise follow-up with your surgeon. Referrals: Blayne Funes MD [Primary Care Provider] - 1-2 days
[2020-04-30 07:17] LABS: Appearance,Urine Cloudy (Clear); Bilirubin,Urine Negative (Negative); Blood,Urine Negative (Negative); Color,Urine Yellow; Glucose,Urine (UA) Negative (Negative); Ketones,Urine Negative (Negative); Leukocyte Esterase,Urine Negative (Negative); Mucus,Urine Moderate /hpf; Nitrite,Urine Negative (Negative); Protein,Urine 1+ (Negative); RBC,Urine 2 /hpf (0-5); Specific Gravity,Urine 1.023 (1.001-1.035); Squamous Epithelial Cell,Urine 7 /hpf (0-4); WBC,Urine 1 /hpf (0-5)
[2020-04-30 07:39] LABS: Basophils # (A) 0.1 k/uL (0-0.2); Basophils % (A) 1 %; Eosinophils # (A) 0.3 k/uL (0-0.7); Eosinophils % (A) 3 %; HCT 40.8 % (34.0-46.0); HGB 14.3 gm/dL (11.4-16.0); Lymphocytes # (A) 3.1 k/uL (1.0-4.8); Lymphocytes % (A) 30 %; MCH 33.4 pg (25.0-35.0); MCV 95.2 fL (80.0-100.0); Mean Platelet Volume 7.2; Monocytes # (A) 0.5 k/uL (0-1.0); Monocytes % (A) 5 %; Neutrophils # (A) 6.3 k/uL (1.3-7.7); Neutrophils % (A) 61 %; Platelet Count 253 k/uL (150-450); RBC 4.29 m/uL (3.80-5.40); RDW 12.2 % (11.5-15.5); WBC 10.3 k/uL (3.8-10.6)
[2020-04-30 07:50] LABS: ALT 20 U/L (4-34); AST 23 U/L (14-36); African American GFR (CKD) >90 (>60 ml/min/1.73 sqM); Alkaline Phosphatase 65 U/L (38-126); Amylase 52 U/L (30-110); Anion Gap 5 mmol/L; Blood Urea Nitrogen 10 mg/dL (7-17); Calcium 9.2 mg/dL (8.4-10.2); Carbon Dioxide 28 mmol/L (22-30); Chloride 107 mmol/L (98-107); Glucose 106 mg/dL (74-99); Lipase 142 U/L (23-300); Non-African American GFR(CKD) >90 (>60 ml/min/1.73 sqM); Potassium 4.2 mmol/L (3.5-5.1); Sodium 140 mmol/L (137-145); Total Bilirubin 0.5 mg/dL (0.2-1.3); Total Protein 6.3 g/dL (6.3-8.2)
[2020-04-30 07:57] VITALS: RESP 18
--- NOTE | 2020-04-30 08:09 | CT ---
EXAMINATION TYPE: CT abdomen pelvis w con DATE OF EXAM: 04/30/2020 COMPARISON: 07/01/2018 HISTORY: Mid abdominal pain. History of gastric bypass CT DLP: 1248.4 mGycm Automated exposure control for dose reduction was used. TECHNIQUE: Helical acquisition of images was performed from the lung bases through the pelvis. CONTRAST: Performed with Oral Contrast and with IV Contrast, patient injected with 100 mL of Isovue 300. FINDINGS: The lung bases are clear. There are postsurgical changes of gastric bypass surgery Patient is status post cholecystectomy and hysterectomy. There is no focal mass or organomegaly involving the liver, pancreas spleen or adrenal glands. The kidneys excrete contrast promptly and symmetrically and there is no solid renal mass or process. There is no retroperitoneal adenopathy or hemorrhage in the caliber of the abdominal aorta is normal. The bowel loops are normal in caliber and there is no evidence of obstruction. There is no abdominal abscess there is no inflammatory change within the mesentery. There is no pelvic adenopathy, free fluid or abscess. Visualized osseous structures soft tissues are intact. IMPRESSION: Postsurgical changes of gastric bypass. 2. Etiology of the patient's elbow pain indeterminate. There is no bowel obstruction, free fluid or f ree air. No inflammatory changes are identified in the abdomen and there is no abscess.
[2020-04-30 08:59] VITALS: BP 123/78; PULSE 68
== END 2020-04-30 08:59 | disposition home or self-care (01) ==
LOC: EC 06:31 → SUPCPDRO 06:31 → EC 08:59
DX: R10.9 Unspecified abdominal pain (principal); R10.811 Right upper quadrant abdominal tenderness; R10.816 Epigastric abdominal tenderness; K21.9 Gastro-esophageal reflux disease without esophagitis; F41.9 Anxiety disorder, unspecified; F17.200 Nicotine dependence, unspecified, uncomplicated; Z79.899 Other long term (current) drug therapy; Z88.8 Allergy status to other drugs, medicaments and biological substances; Z90.49 Acquired absence of other specified parts of digestive tract; Z98.84 Bariatric surgery status; Z90.710 Acquired absence of both cervix and uterus
CPT/HCPCS: 36415; 80053; 82150; 83605; 83690; 85025; 81001; 74177; 99284; 96374; 96375; J2270; J2405; Q9967

== ENCOUNTER → 2022-01-05 | Outpatient (CLI) | payer BC ==
[2022-01-05 12:31] LABS: Prothrombin Time 11.1 sec (9.0-12.0)
[2022-01-05 12:32] LABS: Partial Thromboplastin Time 26.4 sec (22.0-30.0)
[2022-01-05 16:52] LABS: HCT 41.2 % (37.2-46.3); HGB 13.9 g/dL (12.0-15.0); MCH 31.7 pg (27.0-32.0); MCHC 33.7 g/dL (32.0-37.0); MCV 94.1 fL (80.0-97.0); Mean Platelet Volume 9.3 fL (9.5-12.2); NRBC Per 100 WBC 0 /100 WBCS (0.0-0.0); Platelet Count 439 X 10*3/uL (140-440); RBC 4.38 X 10*6/uL (4.10-5.20); RDW 13.4 % (11.5-14.5); WBC 9.09 X 10*3/uL (4.50-10.00)
[2022-01-05 16:53] LABS: % Iron Saturation 18.88 (12.00-45.00); ALT 32 U/L (8-44); AST 27 U/L (13-35); African American GFR (CKD) 131.2 (60.0-200.0); Albumin 3.7 g/dL (3.8-4.9); Albumin/Globulin Ratio 1.78 (1.60-3.17); Alkaline Phosphatase 111 U/L (41-126); BUN/Creat Ratio 7.92 Ratio (12.00-20.00); Blood Urea Nitrogen 4.8 mg/dL (9.0-27.0); Calcium 8.9 mg/dL (8.7-10.3); Carbon Dioxide 28.3 mmol/L (20.0-27.5); Chloride 101 mmol/L (96-109); Ferritin 83.2 ng/mL (10.0-291.0); Globulin 2.1 g/dL (1.6-3.3); Glucose 85 mg/dL (70-110); Iron 61 ug/dL (50-170); Magnesium 2.1 mg/dL (1.5-2.4); Non-African American GFR(CKD) 113.2 (60.0-200.0); Potassium 4.2 mmol/L (3.5-5.5); Sodium 138 mmol/L (135-145); Total Iron Binding Capacity 322 ug/dL (228-460); Total Protein 5.8 g/dL (6.2-8.2)
[2022-01-05 18:04] LABS: Chol/HDL Ratio 3.59 Ratio; LDL Cholesterol,Calculated 66.2 mg/dL (0.0-131.0)
[2022-01-07 14:11] LABS: Zinc, Serum 82 ug/dL (60-130)
== END | disposition home or self-care (01) ==
LOC: LABWHC1 10:14
PROVIDERS: ATTEND Surgery Plastic and Reconstructive Surgery
DX: D50.8 Other iron deficiency anemias (principal); K91.2 Postsurgical malabsorption, not elsewhere classified; E66.01 Morbid (severe) obesity due to excess calories; E44.0 Moderate protein-calorie malnutrition; E45 Retarded development following protein-calorie malnutrition; E55.9 Vitamin D deficiency, unspecified; K74.1 Hepatic sclerosis; N19 Unspecified kidney failure; K50.90 Crohn's disease, unspecified, without complications
CPT/HCPCS: 36415; 80053; 80061; 82306; 82525; 82607; 82728; 82746; 83036; 83540; 83550; 83735; 83970; 84100; 84134; 84255; 84425; 84443; 84590; 84630; 85027; 85610; 85730

== ENCOUNTER 2023-04-16 09:54 | Day surgery (SDC) | payer BC ==
--- NOTE | 2023-04-16 08:06 | P.GSHP ---
History of Present Illness H&P Date: 04/16/23 z CHIEF COMPLAINT: Colon screen HISTORY OF PRESENT ILLNESS: The patient is a 42-year-old female who presents for colon screen. Lower endoscopy was offered for further evaluation and management. PAST MEDICAL HISTORY: Please see list. PAST SURGICAL HISTORY: Please see list. MEDICATIONS: Please see list. ALLERGIES: Please see list. SOCIAL HISTORY: No illicit drug use FAMILY HISTORY: No reports of Crohn disease or ulcerative colitis. REVIEW OF ORGAN SYSTEMS: CONSTITUTIONAL: No reports of fevers or chills. PHYSICAL EXAM: VITAL SIGNS: Stable GENERAL: Well-developed pleasant in no acute distress. HEENT: No scleral icterus. Extraocular movements grossly intact. Moist buccal mucosa. NECK: Supple without lymphadenopathy. CHEST: Unlabored respirations. Equal bilateral excursions. CARDIOVASCULAR: Regular rate and rhythm. Distal 2+ pulses. ABDOMEN: Soft, nontender, nondistended. MUSCULOSKELETAL: No clubbing, cyanosis, or edema. ASSESSMENT: 1. Colon screen. PLAN: 1. Recommend proceeding with a lower endoscopy Past Medical History Past Medical History: GERD/Reflux, Hyperlipidemia, Hypertension, Liver Disease, Osteoarthritis (OA) Additional Past Medical History / Comment(s): Hx LIVER ENZYMES ELEVATED, RETURNED TO WNL. DYSPAGIA, hx diabetes none since gastric bypass. family hx of colon cancer History of Any Multi-Drug Resistant Organisms: None Reported Past Surgical History: Bariatric Surgery, Cholecystectomy, Hysterectomy Additional Past Surgical History / Comment(s): Gastric bypass 07-27-18, EGD. COLONOSCOPY Past Anesthesia/Blood Transfusion Reactions: No Reported Reaction Additional Past Anesthesia/Blood Transfusion Reaction / Comment(s): took a lot of meds to put her out with Dr Meyers last time Smoking Status: Current some day smoker - Past Family History Mother Family Medical History: Cancer Additional Family Medical History / Comment(s): COLORECTAL CANCER Father Family Medical History: Cancer Medications and Allergies Home Medications Medication Instructions Recorded Confirmed Type Citalopram Hydrobromide 20 mg PO HS 12/03/17 04/15/23 History [Citalopram HBr] Omeprazole 40 mg PO QAM 07/23/18 04/15/23 History ALPRAZolam [Xanax] 0.25 mg PO BID PRN 08/05/18 04/15/23 History Bariatric Mvi 1 tab PO DAILY 11/19/18 04/15/23 History Iron (Unknown Dose) 1 tab PO DAILY 11/19/18 04/15/23 History lisinopriL 40 mg PO DAILY 04/15/23 04/15/23 History Allergies Allergy/AdvReac Type Severity Reaction Status Date / Time tuberculin, purified protein Allergy Rash/Hives Verified 04/15/23 10:50 deriva
[2023-04-16] MEDS: LACTATED RINGERS 1,000 ML IV SCH (11:22)
[2023-04-16] MEDS ORDERED: LIDOCAINE 1% INJ 10MG/ML (20 ML MDV) ONE (11:31)
[2023-04-16] MEDS ORDERED: PROPOFOL 10 MG/ML 20 ML VIAL IV ONE (11:31)
[2023-04-16 11:35] VITALS: RESP 16; TEMP 97.8
[2023-04-16 12:40] VITALS: BP 148/88; PULSE 62
--- NOTE | 2023-04-19 16:47 | P.PCN ---
Date of Procedure: 04/16/23 Description of Procedure: PREOPERATIVE DIAGNOSIS: Personal history of colon polyps Family history malignant colon polyps Colonoscopy screening POSTOPERATIVE DIAGNOSIS: Personal history of colon polyps Family history malignant colon polyps Colonoscopy screening Tubular adenoma descending colon Tubular adenoma transverse colon Tubular adenoma colon Internal hemorrhoids, grade 2 OPERATION: Colonoscopy to the ileocecal valve and appendiceal orifice, cecum Colonoscopy with hot snare polypectomy SURGEON: Helen Meyers MD. ANESTHESIA: MAC. INDICATIONS: The patient is an 42-year-old female who presents family history of malignant colon polyps and personal history of colon polyps. Last colonoscopy 5 years. Benefits and risks were described and informed consent was obtained. DESCRIPTION OF PROCEDURE: The patient had undergone Sutab prep. The patient had been brought into the operating room and laid in the left lateral decubitus position. After adequate intravenous sedation, the rectum was examined with 2% lidocaine jelly. External hemorrhoids were encountered. The rectal tone was within normal limits. No lesions were palpated in the rectal vault. An Olympus colonoscope was advanced until the cecum, ileocecal valve and appendiceal orifice were clearly viewed. The prep was good. No sigmoid diverticulosis was encountered. Colonic polyps were found and removed. No evidence of focal colitis was found. Retroflexion of the scope demonstrated grade 2 internal hemorrhoids without active bleeding or inflammation. The colon was desufflated. The patient had tolerated the procedure well. Withdrawal time was over 6 minutes. FINDINGS: Aronchick preparation quality scale 1+ (1-5) Internal hemorrhoids, grade 2 External hemorrhoids, grade 1. No arteriovenous malformations. No sigmoid diverticulosis Removal of 4 polyps: - Snare polypectomy transverse colon x 2, 4 to 6 mm tubulovillous adenoma - Snare polypectomy of the rectum, 4 mm flat villous adenoma - Snare polypectomy descending colon, 4 mm flat villous adenoma No focal colitis. RECOMMENDATIONS: Given severity of tubular adenomas, recommend repeat colonoscopy 3 years, 2026
== END 2023-04-16 12:37 | disposition home or self-care (01) ==
LOC: ORWHC2ENDO 09:54
PROVIDERS: ATTEND Surgery Plastic and Reconstructive Surgery
DX: Z12.11 Encounter for screening for malignant neoplasm of colon (principal); D12.3 Benign neoplasm of transverse colon; D12.4 Benign neoplasm of descending colon; D12.8 Benign neoplasm of rectum; I10 Essential (primary) hypertension; E78.5 Hyperlipidemia, unspecified; K21.9 Gastro-esophageal reflux disease without esophagitis; K64.1 Second degree hemorrhoids; M19.90 Unspecified osteoarthritis, unspecified site; F17.200 Nicotine dependence, unspecified, uncomplicated; Z90.49 Acquired absence of other specified parts of digestive tract; Z98.890 Other specified postprocedural states; Z79.899 Other long term (current) drug therapy
CPT/HCPCS: 88305; 45385; J2001; J2704